=== PATIENT | female | born 1945 | race Caucasian/White ===

== ENCOUNTER → 2016-05-04 | Outpatient (CLI) | payer MEDICAID ==
[~2016-05-04] MED LIST: ABILIFY PO; AC325T PO; ACET325T38 PO; ACHD5005 PO; ACHYD1T PO; ADVAIR; ALBU0.63 IH; ALBU0.632 IH; ALBU0.8322 NEB; ALBU17AE3; ALBU2.5V4 IH; ALBUTEROL RESCUE; ARIP10TA17 PO; ARIP20TA9 PO; ARIP2TAB11 PO; ARIP2TAB3 PO; ARIP5TAB20 PO; ARPZ20T; ARPZ30T; ASP325T PO; ASP81CT PO; ASP81TEC PO; ASPI-875 PO; ASPI-999 PO; ATR20T PO; AZEL137S11 NS; AZEL137S7 NS; AZIT500T2 PO; BACL10TA PO; BACL20TA PO; BARIUM SUSPENSION 2.1% (VANILLA SILQ) 450 ML PO ONE; BETH25TA PO; BIPOLAR MED; BISA1KIT PO; BSC10SU PR; BUDE10.2 IH; BUDE10.22 IH; BUDE6HFA IH; BUDE6HFA INH; BUPR300T; CA C1TAB26 PO; CALC-6 PO; CALC1CAP19 PO; CARB1TAB4 PO; CARV12.53 PO; CARV25TA PO; CATHETER FLUSH 10 ML SYR IV PRN; CETI10CA PO; CETI10TA17; CETI10TA17 PO; CETI10TA20 PO; CHOL100011; CHOL100061 PO; CHOL200018 PO; CLAR500T8; CLAR500T8 PO; CLC500CT PO; CNC1KV IM; CTRZ10T PO; CYAN100053 IM; CYAN10007 PO; DCS100C PO; DICL100G18 TP; DILT120C PO; DILT120C57 PO; DILT120T11 PO; DNPZ5T PO; DONE5TAB30 PO; DOXY100C2 PO; DOXY100T61 PO; DULO30CA; DULO30CA PO; DULO30CA3 PO; DULO30CA48 PO; DULO60CA58 PO; DULO60CA6 PO; ECASA PO; ESCI20TA PO; ESCI20TA45 PO; ESCT10T; FAMO-119 PO; FAMO20TA5 PO; FENT1PAT8 TD; FENT1PAT9 TD; FERR-74 PO; FLC100T1 PO; FLUC100T6 PO; FLUO20CA25 PO; FLUO40CA; FLUT16SP22 NS; FLUT16SP22 NSEACH; FLUT1DIS27; FOLI0.8T PO; FRS325T; FRSM20T; FURO20TA4 PO; FURO40TA4 PO; GABA800T PO; GBPN300C; GBPN600T; GFN600TCR; GUAI600T43 PO; HALO1TAB PO; HCT25T; HYDR-2890 PO; HYDR-3714 PO; HYDR-3731 PO; HYDR-3816 PO; HYDR-3820 PO; HYDR-700 PO; HYDR118S10 PO; INSU100I29 SC; INSU100V5 SQ; IOHEXOL 350 MG/ML 100 ML (OMNIPAQUE 350) VIAL IV ONE; ISM60TCR PO; ISOS30TA3 PO; ISOS30TA74 PO; KCL20TCR; LACT1CAP45 PO; LACT1CAP62 PO; LEVA1.25 NEB; LEVO500T2 PO; LEVO750T39 PO; LEVO750T6 PO; LEVOMEFOLATE; LEXAPRO PO; LNZ600T PO; LOPE2CAP PO; LORA-404 PO; LORA-794 PO; LORA0.5T PO; LORA10TA7 PO; LORA1TAB PO; LRT10T PO; LUNESTA; LVB.63NB3; LVB125NB3 INH; MAG355OR55 PO; MAGN-47 PO; MAGN400O7 PO; MAGN400T6 PO; MELA3TAB PO; MEMA10TA PO; MEMA10TA22 PO; MENT71OI TP; METF1000 PO; METH4TAB PO; METHYLPREDNISOLONE; METO-272 PO; METO25TA2 PO; METO50TA7; METO50TA7 PO; MIRA25TA PO; MNTL10T PO; MOME13HF IH; MONT10TA24 PO; MTC10T; MTF500T PO; MTL5T PO; MTP25TSR; MTP25TSR PO; MTP50T PO; NASACORT; NASALCORT; NEBI2.5T5 PO; NF-ESOM40C; NF-ESOM40C PO; NITR0.6T5 SL; NS 100 ML (IVPB) BAG IV ONE; NYST15CR TP; OMEG1CAP51 PO; ONDA4TAB10 PO; ONDA4TAB8 PO; ONDN4T PO; PANT40TA PO; PANT40TA3 PO; PEG250PW PO; PNT40TEC PO; POLY119P5 PO; POLY17PO23 PO; POLY255P PO; POTA20TA15 PO; POTA8CAP9 PO; POTASSIUM; PRD10T PO; PRD1T PO; PRD20T PO; PRED2.5T PO; PRED5TAB PO; PREVACID; PROP15DR27 OU; QTP25T PO; QUET100T32 PO; QUET50TA21 PO; RISP0.5T2; RISP1TAB2 PO; RIVA20TA2 PO; ROFL500T PO; RSP.25T PO; RSP2T PO; SALM1CAP4; SANCTURA; SCR1T1 PO; SENN-1 PO; SENN1TAB76; SIMV20TA3 PO; SNN187T PO; SPRIVIA; SUCR1TAB PO; SUCR1TAB23 PO; TAZTIA XT PO; TEGA6TAB; TIOT18CA; TIOT18CA INH; TIOT18CA2 IH; TIOT18CA2 INH; TOLTA4; TRAM50TA2 PO; TRIA16.5; TRIA16.5 NSEACH; TRM50T PO; TRZ100T PO; VIT B12; ZLP10T; [UNRECOGNIZED DRUG - CODE]; [UNRECOGNIZED DRUG - OTHER]; [UNRECOGNIZED DRUG - OTHER]
--- OUTSIDE RECORDS SUMMARY | 2016-05-04 10:18 | XMS REPORT | Continuity of Care Document ---
Author Author [facility] Organization [facility] Address Unknown Phone Unavailable Care Team Providers Care Armature Connector Name Role Phone Concetta Brower PCP [phone] Source Comments Some departments are not documenting in the electronic medical record. If you do not see the information that you expected, contact Release of Information in the Health Information Management department at [phone] for further assistance in locating additional records.[facility] Active Allergies and Adverse Reactions Allergen Noted [...] Problem Noted Date Adrenal mass, left ([facility]) 12/16/2015 Nocturnal hypoxemia 07/13/2015 Overview: PSG Via [...] Assessment & Plan: Requested imaging from Via [facility]- I don't see any imaging since 2005, no mention of current abnormalities on old scans. Likely new, anticipating she needs CT of chest. Discussed with Dr. Brower's nurse coordinating local care. They were willing to help given complex social situation and distance. Obstructive lung disease (generalized) ([facility]) 07/13/2015 Overview: Dwayne normal On a significant [...] to see if we can optimize her. Social History Tobacco Use Types Packs/Day Years [...]
--- NOTE | 2016-05-04 11:56 | Diagnostic Imaging Report ---
PROCEDURE: CT chest and abdomen with contrast. TECHNIQUE: Multiple contiguous axial images were obtained through the chest and abdomen after the administration of intravenous contrast. INDICATION: Lung cancer. COMPARISON: Exam compared with study 01/07/2016. FINDINGS: CHEST: Left upper lobe apical irregular parenchymal opacity is less dense and smaller than on previous exam. Central dense component today is about 15 mm x 8 mm previously 22 x 11 mm. More caudally, an additional left upper lobe opacity measuring a long axis of 13 mm previously 15 mm. Some micronodularity of the interstitium involving the caudal aspect of the lingular segment of the left upper lobe as well as the dependent portions of both lower lobes and minimally involving the right middle lobe have developed. These are suspicious for pneumonia. Followup recommended. Some contrast media ingested mildly distends the thoracic esophagus above the level of the small hiatal hernia. There is no hilar or mediastinal lymphadenopathy. The axilla are unremarkable. No acute or suspicious osseous disease. The thoracic aorta is patent and nonaneurysmal. ABDOMEN: Nodule anterior to the upper pole of the left kidney believed to be of left adrenal origin measures 2.5 cm today previously 2.3 cm. The right adrenal is negative. The liver is unremarkable. There is no hydronephrosis. There is aortoiliac, mesenteric and renal vascular calcifications, nonaneurysmal and stable. The pancreas and spleen are normal. The kidneys are unobstructed. There is no abdominal, mesenteric or retroperitoneal adenopathy. There is is colonic constipation without small bowel dilatation. There is no ascites. No suspicious osseous disease. IMPRESSION: CHEST: Left apical lung mass decreased in size and density from prior, an additional left lower lobe parenchymal nodule was unchanged. There is new predominantly basilar nodular infiltrates suspect for pneumonia. No thoracic adenopathy. ABDOMEN: Left adrenal mass measures slightly larger than prior. Negative liver. Negative right adrenal. No lymphadenopathy. Nonobstructive constipation. Atherosclerotic disease, chronic. Dictated by: Dictated on workstation # [id number]
== END ==
LOC: RAD 10:15
PROVIDERS: ATTEND Internal Medicine Hematology & Oncology
DX: C34.82 Malignant neoplasm of overlapping sites of left bronchus and lung (principal); C79.72 Secondary malignant neoplasm of left adrenal gland
CPT/HCPCS: 71260; 74160

== ENCOUNTER 2016-05-09 13:51 | Outpatient (RCR) | payer MEDICAID ==
--- OUTSIDE RECORDS SUMMARY | 2016-02-23 13:05 | XMS REPORT | Continuity of Care Document ---
Author Author [facility] Organization [facility] Address Unknown Phone Unavailable Care Team Providers Care Community Service Organization Director Name Role Phone Concetta Brower PCP [phone] Source Comments Some departments are not documenting in the electronic medical record. If you do not see the information that you expected, contact Release of Information in the Health Information Management department at [phone] for further assistance in locating additional records.[facility] Active Allergies and Adverse Reactions Allergen Noted Date Severity Reactions Comments Amoxicillin 06/25/2015 Low UNKNOWN Benadryl 06/25/2015 Low UNKNOWN Cephalosporins 06/25/2015 Low UNKNOWN Ceclor and keflex Clindamycin 06/25/2015 Low UNKNOWN Codeine 06/25/2015 Low UNKNOWN Demerol 06/25/2015 Low UNKNOWN Formoterol 06/25/2015 Low UNKNOWN Levaquin 06/25/2015 Low UNKNOWN Lincomycin 06/25/2015 Low UNKNOWN Penicillin G 06/25/2015 Low UNKNOWN Pseudoephedrine Hcl 06/25/2015 Low UNKNOWN Sulfa (Sulfonamide 06/25/2015 Low UNKNOWN Antibiotics) Xanax 06/25/2015 Low UNKNOWN Zinc 06/25/2015 Low UNKNOWN Current Medications Prescription Sig. Disp. Refills Start End Date Status Date budesonide/formoterol Inhale 2 Puffs by mouth Active (SYMBICORT) 160/4.5 mcg twice daily. HFAA inhalation cetirizine (ZYRTEC) 10 mg Take 10 mg by mouth Active tablet daily. fluticasone (FLONASE) 50 Apply 2 Sprays to each Active mcg/actuation nasal spray nostril as directed daily. magnesium oxide (MAG-OX) Take 400 mg by mouth Active 400 mg tablet daily. pantoprazole DR Take 40 mg by mouth twice Active (PROTONIX) 40 mg tablet daily. DULoxetine DR (CYMBALTA) Take 30 mg by mouth twice Active 30 mg capsule daily. SENNOSIDES/DOCUSATE Take 1 Tab by mouth twice Active SODIUM (SENNA-S PO) daily. cyanocobalamin (VITAMIN Inject 1,000 mcg to Active B-12, RUBRAMIN) 1,000 area(s) as directed every mcg/mL injection 14 days. tiotropium (SPIRIVA) 18 Inhale 18 mcg by mouth Active mcg capsule for inhaler daily before dinner. memantine (NAMENDA) 10 mg Take 10 mg by mouth at Active tablet bedtime daily. simvastatin (ZOCOR) 20 mg Take 20 mg by mouth at Active tablet bedtime daily. donepezil (ARICEPT) 5 mg Take 5 mg by mouth at Active tablet bedtime daily. fluticasone (FLONASE Apply 2 Sprays to each Active ALLERGY RELIEF) 50 nostril as directed twice mcg/actuation nasal spray daily. acetaminophen (TYLENOL) Take 650 mg by mouth Active 325 mg tablet every 6 hours as needed for Pain. azelastine(+) (ASTELIN) Apply 1-2 Sprays to each Active 137 mcg (0.1 %) nasal nostril as directed three spray times daily as needed. ondansetron (ZOFRAN ( Take 4 mg by mouth every Active HYDROCHLORIDE)) 4 mg 6 hours as needed for tablet Nausea. hydrOXYzine (ATARAX) 25 Take 25 mg by mouth three Active mg tablet times daily as needed for Itching. Lactobacillus rhamnosus Take 1 Cap by mouth daily Active GG (LACTOBACILLUS with breakfast. RHAMNOSUS (GG)) 15 billion cell cpSP Calcium-Cholecalciferol Take 1 Tab by mouth twice Active (D3) 600 mg(1,500mg) -200 daily with meals. unit tab isosorbide mononitrate SR Take 30 mg by mouth every Active (IMDUR) 30 mg tablet morning. Hold if diastolic blood pressure is < 60 milk of magnesia (CONC) Take 10 mL by mouth daily Active 2,400 mg/10 mL oral as needed. suspension alum/mag hydroxide/simeth Take 30 mL by mouth every Active (MYLANTA, MAALOX PLUS) 4 hours as needed. 200/200/20 mg/5 mL susp oral suspension montelukast (SINGULAIR) Take 10 mg by mouth at Active 10 mg tablet bedtime daily. polyethylene glycol 3350 Take 17 g by mouth daily Active (GLYCOLAX; MIRALAX) 17 as needed. gram/dose powder escitalopram oxalate Take 30 mg by mouth Active (LEXAPRO) 10 mg tablet daily. ARIPiprazole (ABILIFY) 5 Take 1.25 mg by mouth Active mg tablet daily. carvedilol (COREG) 25 mg Take 25 mg by mouth twice Active tablet daily with meals. predniSONE (DELTASONE) Take 2.5 mg by mouth at Active 2.5 mg tablet bedtime daily. melatonin 3 mg tab Take 3 mg by mouth at Active bedtime as needed. HYDROcodone/acetaminophen Take 1-2 Tabs by mouth Active (NORCO) 7.5/325 mg tablet every 6 hours as needed for Pain albuterol 0.5% Inhale 2.5 mg solution as Active (PROVENTIL; VENTOLIN) 2.5 directed every 6 hours as mg/0.5 mL nebu nebulizer needed. solution Active Problems Problem Noted Date Adrenal mass, left ([facility]) 12/16/2015 Nocturnal hypoxemia 07/13/2015 Overview: PSG [facility] .2015 AHI 2.2/ Supine 0 Oxygenation gudelia 81%, 138 minutes below 88% Titrated to 1L oxygen DME Provided through assisted living L ast Assessment & Plan: Formatting of this note may be different from the original. Does not need CPAP, 1L at night. Possible obesity hypoventilation- seems less likely given normal serum bicarb. Results for DAY, YIMI Roberts ( ) as of 07/13/2015 11:05 Ref. Range 06/25/2015 17:29 CO2 Latest Range: 21-30 MMOL/L 28 Abnormal CXR (chest x-ray) 07/13/2015 Last Assessment & Plan: Requested imaging from [facility]- I don't see any imaging since 2005, no mention of current abnormalities on old scans. Likely new, anticipating she needs CT of chest. Discussed with Dr. Brower's nurse coordinating local care. They were willing to help given complex social situation and distance. Obstructive lung disease (generalized) ([facility]) 07/13/2015 Overview: Dwayne normal On a significant inhaler regimen that includes daliresp and singulair. I'm not sure if she doesn't have obstruction given her maximal inhaler therapy or if she has been misdiagnosed. Preop examination 07/12/2015 Overview: Dr. Morrell Spinal stenosis L ast Assessment & Plan: Pt very high risk, poor surgical candidate due to multiple health and complex social issues. -DM -reported COPD -nocturnal oxygen requirement -no activity tolerance, ECOG 4- lives in assisted living -reported DPOA that is not present with her today -limited knowledge of her dx's and treatment plan Will work up her abnormal CXR in conjunction with her PCP and see what this yields. Certainly her QOL issues are substantial at this point and surgery seems to be the only option. We will continue to see if we can optimize her. Most Recent Encounters Date Type Specialty Providers Description 01/05/2016 Documentation Oncology Rigoberto Ingram MD 12/16/2015 Documentation Oncology Rigoberto Ingram MD 12/16/2015 Orders Only Oncology Rigoberto Ingram MD Pheochromocytoma , left (Primary Dx) 12/14/2015 Office Visit Oncology Rigoberto Ingram MD Pheochromocytoma , left (Primary Dx); Adrenal mass, left (HCC) 11/26/2015 Telephone Oncology Rigoberto Ingram MD Navigation Assessment Social History Tobacco Use Types Packs/Day Years Used Date Former Smoker 4 40 Quit: 06/25/2005 Smokeless Tobacco: Never Used Alcohol Use Drinks/Week oz/Week Comments No 0 Standard 0.0 1991 recovering alcoholic drinks or equivalent Last Filed Vital Signs Vital Sign Reading Time Taken Blood Pressure 125/65 12/14/2015 2:10 PM CDT Pulse 77 12/14/2015 2:10 PM CDT Temperature 36.4 C (97.6 F) 12/14/2015 2:10 PM CDT Respiratory Rate 18 12/14/2015 2:10 PM CDT Height 1.626 m (5' 4") 12/14/2015 2:10 PM CDT Weight 113.399 kg (250 lb) 12/14/2015 2:10 PM CDT Body Mass Index 42.89 12/14/2015 2:10 PM CDT Oxygen Saturation 94% 12/14/2015 2:10 PM CDT Plan of Care Health Maintenance Due Date Last Done Comments Hepatitis C Screening 1945 Physical (Comprehensive) 1953 Exam Pertussis Vaccine 1957 Tetanus Vaccine 1963 Dilated Eye Exam 1964 Foot Exam 1964 Hba1c 1964 Microalbumin 1964 Breast Cancer Screening 1986 Colorectal Cancer 1996 Screening Shingles Vaccine 2006 Osteoporosis Screening 2011 Prevnar/Pneumovax (#1) 2011 Influenza Vaccine 12/30/2015 Results from Last 3 Months Not on file
[2016-02-23 13:45] LABS: BASOPHILS # (AUTO) 0.1 10^3/uL (0.0-0.1); BASOPHILS % (AUTO) 0 % (0-10); EOSINOPHILS # (AUTO) 0.2 10^3/uL (0.0-0.3); EOSINOPHILS % (AUTO) 1 % (0-10); LYMPHOCYTES # (AUTO) 3.1 X 10^3 (1.0-4.0); LYMPHOCYTES % (AUTO) 19 % (12-44); MEAN CORPUSCULAR HEMOGLOBIN 28 PG (25-34); MEAN CORPUSCULAR HGB CONC 31 G/DL (32-36); MEAN CORPUSCULAR VOLUME 91 FL (80-99); MEAN PLATELET VOLUME 10.2 FL (7.4-10.4); MONOCYTES % (AUTO) 6 % (0-12); NEUTROPHILS # (AUTO) 12.1 X 10^3 (1.8-7.8); NEUTROPHILS % (AUTO) 74 % (42-75); PLATELET COUNT 343 10^3/uL (130-400); RED BLOOD COUNT 3.26 10^6/uL (4.35-5.85); RED CELL DISTRIBUTION WIDTH 17.3 % (10.0-14.5); WHITE BLOOD COUNT 16.4 10^3/uL (4.3-11.0)
[2016-02-23 14:08] LABS: ALBUMIN 3.6 G/DL (3.2-4.5); BILIRUBIN,TOTAL 0.2 MG/DL (0.1-1.0); CALCIUM 9.2 MG/DL (8.5-10.1); CREATININE SERUM 1.06 MG/DL (0.60-1.30); POTASSIUM 4.1 MMOL/L (3.6-5.0); TOTAL PROTEIN 7.4 G/DL (6.4-8.2)
[2016-03-14 11:25] LABS: BASOPHILS % (AUTO) 0 % (0-10); EOSINOPHILS # (AUTO) 0.1 10^3/uL (0.0-0.3); EOSINOPHILS % (AUTO) 1 % (0-10); LYMPHOCYTES # (AUTO) 2.6 X 10^3 (1.0-4.0); LYMPHOCYTES % (AUTO) 14 % (12-44); MEAN CORPUSCULAR HEMOGLOBIN 28 PG (25-34); MEAN CORPUSCULAR HGB CONC 31 G/DL (32-36); MEAN CORPUSCULAR VOLUME 90 FL (80-99); MEAN PLATELET VOLUME 11.2 FL (7.4-10.4); MONOCYTES # (AUTO) 0.8 X 10^3 (0.0-1.0); MONOCYTES % (AUTO) 4 % (0-12); NEUTROPHILS # (AUTO) 15.3 X 10^3 (1.8-7.8); NEUTROPHILS % (AUTO) 81 % (42-75); PLATELET COUNT 354 10^3/uL (130-400); RED BLOOD COUNT 3.15 10^6/uL (4.35-5.85); RED CELL DISTRIBUTION WIDTH 17.6 % (10.0-14.5); WHITE BLOOD COUNT 18.9 10^3/uL (4.3-11.0)
[2016-03-14 11:44] LABS: ALBUMIN 3.5 G/DL (3.2-4.5); BILIRUBIN,TOTAL 0.3 MG/DL (0.1-1.0); CREATININE SERUM 1.22 MG/DL (0.60-1.30); MAGNESIUM 2.4 MG/DL (1.8-2.4)
[2016-03-14 11:47] LABS: POTASSIUM 5.8 MMOL/L (3.6-5.0)
[2016-03-14 12:07] LABS: THYROID STIMULATING HORMONE 1.63 UIU/ML (0.35-4.94)
[2016-04-04 11:09] LABS: BASOPHILS % (AUTO) 0 % (0-10); EOSINOPHILS # (AUTO) 0.2 10^3/uL (0.0-0.3); EOSINOPHILS % (AUTO) 1 % (0-10); LYMPHOCYTES # (AUTO) 2.6 X 10^3 (1.0-4.0); LYMPHOCYTES % (AUTO) 17 % (12-44); MEAN CORPUSCULAR HEMOGLOBIN 27 PG (25-34); MEAN CORPUSCULAR HGB CONC 30 G/DL (32-36); MEAN CORPUSCULAR VOLUME 89 FL (80-99); MEAN PLATELET VOLUME 10.4 FL (7.4-10.4); MONOCYTES # (AUTO) 0.9 X 10^3 (0.0-1.0); MONOCYTES % (AUTO) 6 % (0-12); NEUTROPHILS # (AUTO) 11.8 X 10^3 (1.8-7.8); NEUTROPHILS % (AUTO) 76 % (42-75); PLATELET COUNT 471 10^3/uL (130-400); RED BLOOD COUNT 3.52 10^6/uL (4.35-5.85); RED CELL DISTRIBUTION WIDTH 17.8 % (10.0-14.5); WHITE BLOOD COUNT 15.6 10^3/uL (4.3-11.0)
[2016-04-04 11:38] LABS: ALBUMIN 3.7 G/DL (3.2-4.5); BILIRUBIN,TOTAL 0.4 MG/DL (0.1-1.0); CALCIUM 9.4 MG/DL (8.5-10.1); CREATININE SERUM 1.12 MG/DL (0.60-1.30); MAGNESIUM 1.6 MG/DL (1.8-2.4); POTASSIUM 4.3 MMOL/L (3.6-5.0); TOTAL PROTEIN 7.9 G/DL (6.4-8.2)
[2016-04-20 09:16] LABS: BASOPHILS % (AUTO) 0 % (0-10); EOSINOPHILS # (AUTO) 0.1 10^3/uL (0.0-0.3); EOSINOPHILS % (AUTO) 1 % (0-10); LYMPHOCYTES # (AUTO) 1.9 X 10^3 (1.0-4.0); LYMPHOCYTES % (AUTO) 13 % (12-44); MEAN CORPUSCULAR HEMOGLOBIN 27 PG (25-34); MEAN CORPUSCULAR HGB CONC 29 G/DL (32-36); MEAN CORPUSCULAR VOLUME 90 FL (80-99); MEAN PLATELET VOLUME 11.2 FL (7.4-10.4); MONOCYTES # (AUTO) 0.7 X 10^3 (0.0-1.0); MONOCYTES % (AUTO) 5 % (0-12); NEUTROPHILS % (AUTO) 82 % (42-75); PLATELET COUNT 395 10^3/uL (130-400); RED BLOOD COUNT 3.62 10^6/uL (4.35-5.85); RED CELL DISTRIBUTION WIDTH 17.2 % (10.0-14.5); WHITE BLOOD COUNT 14.7 10^3/uL (4.3-11.0)
[2016-04-20 09:38] LABS: ALBUMIN 3.7 G/DL (3.2-4.5); BILIRUBIN,TOTAL 0.4 MG/DL (0.1-1.0); CALCIUM 9.1 MG/DL (8.5-10.1); CREATININE SERUM 1.3 MG/DL (0.60-1.30); TOTAL PROTEIN 7.7 G/DL (6.4-8.2)
[2016-05-02 10:20] LABS: BASOPHILS % (AUTO) 0 % (0-10); EOSINOPHILS # (AUTO) 0.1 10^3/uL (0.0-0.3); EOSINOPHILS % (AUTO) 1 % (0-10); LYMPHOCYTES # (AUTO) 2.4 X 10^3 (1.0-4.0); LYMPHOCYTES % (AUTO) 17 % (12-44); MEAN CORPUSCULAR HEMOGLOBIN 27 PG (25-34); MEAN CORPUSCULAR HGB CONC 31 G/DL (32-36); MEAN CORPUSCULAR VOLUME 89 FL (80-99); MEAN PLATELET VOLUME 9.6 FL (7.4-10.4); MONOCYTES # (AUTO) 0.8 X 10^3 (0.0-1.0); MONOCYTES % (AUTO) 6 % (0-12); NEUTROPHILS # (AUTO) 10.6 X 10^3 (1.8-7.8); NEUTROPHILS % (AUTO) 76 % (42-75); PLATELET COUNT 523 10^3/uL (130-400); RED CELL DISTRIBUTION WIDTH 17.7 % (10.0-14.5); WHITE BLOOD COUNT 13.9 10^3/uL (4.3-11.0)
[2016-05-02 11:05] LABS: ALBUMIN 3.6 G/DL (3.2-4.5); BILIRUBIN,TOTAL 0.3 MG/DL (0.1-1.0); CALCIUM 8.8 MG/DL (8.5-10.1); CREATININE SERUM 1.06 MG/DL (0.60-1.30); POTASSIUM 4.3 MMOL/L (3.6-5.0); TOTAL PROTEIN 7.5 G/DL (6.4-8.2)
[~2016-05-09] VITALS: Ht 175.3 cm; Wt 114.8 kg
[~2016-05-09 13:51] MED LIST changes: +ACETAMINOPHEN 500 MG TAB (TYLENOL) CANCER CTR PO PRN; -ARIP20TA9 PO; -BARIUM SUSPENSION 2.1% (VANILLA SILQ) 450 ML PO ONE; -CATHETER FLUSH 10 ML SYR IV PRN; -DULO60CA58 PO; -FENT1PAT8 TD; -FENT1PAT9 TD; -FLUC100T6 PO; -GUAI600T43 PO; -HYDR-3731 PO; -IOHEXOL 350 MG/ML 100 ML (OMNIPAQUE 350) VIAL IV ONE; -NS 100 ML (IVPB) BAG IV ONE; +NS IV 500 ML (CANCER CENTER) IV SCH; +PEMBROLIZUMAB 200 MG in NS (IVPB) CANCER CENTER 50 ML IV SCH
[2016-05-09 14:42] LABS: BASOPHILS # (AUTO) 0.1 10^3/uL (0.0-0.1); BASOPHILS % (AUTO) 1 % (0-10); EOSINOPHILS # (AUTO) 0.2 10^3/uL (0.0-0.3); EOSINOPHILS % (AUTO) 2 % (0-10); LYMPHOCYTES # (AUTO) 3.3 X 10^3 (1.0-4.0); LYMPHOCYTES % (AUTO) 28 % (12-44); MEAN CORPUSCULAR HEMOGLOBIN 27 PG (25-34); MEAN CORPUSCULAR HGB CONC 30 G/DL (32-36); MEAN CORPUSCULAR VOLUME 89 FL (80-99); MONOCYTES # (AUTO) 1.2 X 10^3 (0.0-1.0); MONOCYTES % (AUTO) 10 % (0-12); NEUTROPHILS # (AUTO) 7.2 X 10^3 (1.8-7.8); NEUTROPHILS % (AUTO) 61 % (42-75); PLATELET COUNT 461 10^3/uL (130-400); RED BLOOD COUNT 3.65 10^6/uL (4.35-5.85); RED CELL DISTRIBUTION WIDTH 17.8 % (10.0-14.5); WHITE BLOOD COUNT 11.8 10^3/uL (4.3-11.0)
[2016-05-09 15:24] LABS: ALBUMIN 3.7 G/DL (3.2-4.5); BILIRUBIN,TOTAL 0.2 MG/DL (0.1-1.0); CALCIUM 8.8 MG/DL (8.5-10.1); MAGNESIUM 1.7 MG/DL (1.8-2.4); POTASSIUM 4.6 MMOL/L (3.6-5.0); TOTAL PROTEIN 7.7 G/DL (6.4-8.2)
[2016-09-07] MEDS ORDERED: FENT1PAT9 TD (09:00)
[2016-09-07] MEDS ORDERED: LEVO500T2 PO (09:00)
[2016-09-07] MEDS ORDERED: FLUC100T6 PO (09:00)
== END 2016-05-23 | disposition home or self-care (01) ==
LOC: ONC 13:51
PROVIDERS: ATTEND Internal Medicine Hematology & Oncology
DX: Z51.11 Encounter for antineoplastic chemotherapy (principal); C34.12 Malignant neoplasm of upper lobe, left bronchus or lung; I25.10 Atherosclerotic heart disease of native coronary artery without angina pectoris; E11.9 Type 2 diabetes mellitus without complications; Z79.899 Other long term (current) drug therapy
CPT/HCPCS: 36415; 36591; 80053; 83735; 84439; 84443; 85025; 86316; 96413; 99213; 99214

== ENCOUNTER → 2016-07-04 | Outpatient (CLI) | payer MEDICAID ==
[~2016-07-04] MED LIST changes: -ACETAMINOPHEN 500 MG TAB (TYLENOL) CANCER CTR PO PRN; +ARIP20TA9 PO; +BARIUM SUSPENSION 2.1% (VANILLA SILQ) 450 ML PO ONE; +CATHETER FLUSH 10 ML SYR IV PRN; +DULO60CA58 PO; +FENT1PAT8 TD; +FENT1PAT9 TD; +FLUC100T6 PO; +GUAI600T43 PO; +HYDR-3731 PO; +IOHEXOL 350 MG/ML 100 ML (OMNIPAQUE 350) VIAL IV ONE; +NS 100 ML (IVPB) BAG IV ONE; -NS IV 500 ML (CANCER CENTER) IV SCH; -PEMBROLIZUMAB 200 MG in NS (IVPB) CANCER CENTER 50 ML IV SCH
--- OUTSIDE RECORDS SUMMARY | 2016-07-04 09:40 | XMS REPORT | Continuity of Care Document ---
Author Author [facility] Organization [facility] Address Unknown Phone Unavailable Care Team Providers Care Legend Maker Name Role Phone Concetta Brower PCP [phone] Source Comments Some departments are not documenting in the electronic medical record. If you do not see the information that you expected, contact Release of Information in the Health Information Management department at [phone] for further assistance in locating additional records.[facility] Active Allergies and Adverse Reactions [...] Problems Problem Noted Date Adrenal mass, left ([facility]) 12/16/2015 Nocturnal hypoxemia 07/13/2015 Overview: PSG [...] Assessment & Plan: Requested imaging from Via [facility]- I don't see any imaging since 2005, no mention of current abnormalities on old scans. Likely new, anticipating she needs CT of chest. Discussed with Dr. Brower's nurse coordinating local care. They were willing to help given complex social situation and distance. Obstructive lung disease (generalized) ([facility]) 07/13/2015 Overview: Dwayne normal On a [...]
--- NOTE | 2016-07-04 12:21 | Diagnostic Imaging Report ---
PROCEDURE: CT chest, abdomen, and pelvis with contrast. TECHNIQUE: Multiple contiguous axial images were obtained through the chest, abdomen, and pelvis after the administration of intravenous contrast. INDICATION: Lung cancer. FINDINGS: The previous CT chest and abdomen exam of 05/04/16 noted a poorly defined parenchymal opacity in the left upper lung. The central portion of this density measured 15 x 8 mm. On this exam, that area now measures 11 x 8 mm. There are also 2 other parenchymal opacities involving the left upper lung on the prior exam. The larger of these 2 measured approximately 6 x 15 mm. That finding is barely visible on this study. There is also an 8 x 7 mm nodule in the left upper lung. That finding cannot be identified on this exam either. The previous study also revealed fairly diffuse alveolar/interstitial infiltrates throughout the periphery of left midlung and left lung base and to a lesser degree the right lower lobe. On this exam, both lungs appear much better aerated. There is still a fair amount of residual alveolar/interstitial infiltrate on the left, however. There is still no sign of a pleural effusion. The heart size is within normal limits and stable when compared to the prior exam. Coronary artery calcifications are again noted. The aorta is not abnormally dilated. There is no definite defect within the pulmonary arteries to indicate a pulmonary embolus. There are a few slightly enlarged nodes in the aorticopulmonary window. These nodes have a conglomerate size of 9 x 31 mm. On the prior study, these nodes measured 12 x 36 mm. The thyroid gland is generally unremarkable. There is no obvious breast mass. The prior study did note a 2.3 x 2.5 cm low-density nodule associated with the left adrenal gland. That finding is again evident and no different. The liver, spleen, pancreas, right adrenal gland, kidneys, aorta and inferior vena cava show no sign of an acute abnormality. The small nonobstructive calculi within the right kidney seen previously are again evident and no different. The gallbladder is surgically absent. The stomach is not well distended and consequently difficult to assess. There is no solid pelvic mass or free fluid collection identified. The uterus and urinary bladder are grossly unremarkable. There are a number of diverticula involving the sigmoid colon but there is no sign of acute diverticulitis. The appendix was not particularly well visualized but there are no indirect signs of acute appendicitis. The bone windows do show that there is a 3.2 x 3.6 cm lytic lesion involving the right lateral aspect of the L5 vertebral body. This finding should be considered secondary to neoplastic disease until proven otherwise. There is no other bony lesion identified. There is no fracture visualized either. IMPRESSION: 1. The appearance of the chest has improved since the prior exam as the irregular parenchymal density in the left apex has decreased in size slightly. The other parenchymal abnormalities in the left upper lung seen on the prior study have essentially resolved. 2. The lung bases also appear better aerated than on the prior study but there is still a fair amount of residual atelectasis/infiltrate in the left lung base. 3. The left adrenal nodule noted on the prior study appears stable. The overall appearance of the soft tissues of the abdomen and pelvis is otherwise no different. 4. There is a 3.2 x 3.6 cm lytic lesion involving the right lateral aspect of the L5 vertebra. This finding should be considered neoplastic until proven otherwise.. Dictated by: Dictated on workstation # [id number]
== END ==
LOC: RAD 09:36
PROVIDERS: ATTEND Internal Medicine Hematology & Oncology
DX: C34.82 Malignant neoplasm of overlapping sites of left bronchus and lung (principal)
CPT/HCPCS: 71260; 74177

== ENCOUNTER → 2016-07-14 | Outpatient (CLI) | payer MEDICAID ==
[~2016-07-14] MED LIST changes: -BARIUM SUSPENSION 2.1% (VANILLA SILQ) 450 ML PO ONE; -CATHETER FLUSH 10 ML SYR IV PRN; -IOHEXOL 350 MG/ML 100 ML (OMNIPAQUE 350) VIAL IV ONE; -NS 100 ML (IVPB) BAG IV ONE
--- OUTSIDE RECORDS SUMMARY | 2016-07-14 10:28 | XMS REPORT | Continuity of Care Document ---
Author Author [facility] Organization [facility] Address Unknown Phone Unavailable Care Team Providers Care Calcine Furnace Loader Name Role Phone Concetta Brower PCP [phone] Source Comments Some departments are not documenting in the electronic medical record. If you do not see the information that you expected, contact Release of Information in the Health Information Management department at [phone] for further assistance in locating additional records.[facility] Active Allergies and Adverse Reactions Allergen [...] Problem Noted Date Adrenal mass, left ([facility]) 12/16/2015 Nocturnal hypoxemia 07/13/2015 Overview: PSG Via [...] Assessment & Plan: Requested imaging from [facility]- I don't see any imaging since 2005, no mention of current abnormalities on old scans. Likely new, anticipating she needs CT of chest. Discussed with Dr. Brower's nurse coordinating local care. They were willing to help given complex social situation and distance. Obstructive lung disease (generalized) ([facility]) 07/13/2015 Overview: Dwayne normal On a significant [...]
--- NOTE | 2016-07-14 15:35 | Diagnostic Imaging Report ---
INDICATION: Lung cancer. EXAMINATION: Whole-body bone scan was performed in the routine fashion with IV injection of 27.0 mCi technetium 99m MDP. FINDINGS: There is physiologic uptake of the tracer throughout the skeleton. There is degenerative type increased uptake over both knees. There are no findings suspicious for osseous metastatic disease. IMPRESSION: Degenerative type increased uptake over both knees. No scintigraphic evidence of osseous metastatic disease. Dictated by: Dictated on workstation # [id number]
== END ==
LOC: CARD 10:24
PROVIDERS: ATTEND Internal Medicine Hematology & Oncology
DX: C34.82 Malignant neoplasm of overlapping sites of left bronchus and lung (principal); R93.8 Abnormal findings on diagnostic imaging of other specified body structures
CPT/HCPCS: 78306

== ENCOUNTER 2016-07-19 05:36 | Outpatient (CLI) | payer MEDICAID ==
[~2016-07-19] VITALS: Ht 175.3 cm; Wt 112.3 kg
[~2016-07-19 05:36] MED LIST changes: -ARIP20TA9 PO; -DULO60CA58 PO; -FENT1PAT8 TD; -FENT1PAT9 TD; -FLUC100T6 PO; -GUAI600T43 PO; -HYDR-3731 PO
[2016-09-07] MEDS ORDERED: FLUC100T6 PO (09:00)
[2016-09-07] MEDS ORDERED: FENT1PAT9 TD (09:00)
[2016-09-07] MEDS ORDERED: LEVO500T2 PO (09:00)
== END 2016-07-19 16:03 ==
LOC: PREOP 05:36
DX: Z01.818 Encounter for other preprocedural examination (principal); R93.7 Abnormal findings on diagnostic imaging of other parts of musculoskeletal system; C34.82 Malignant neoplasm of overlapping sites of left bronchus and lung

== ENCOUNTER 2016-07-26 08:43 | Day surgery (SDC) | payer MEDICAID ==
[~2016-07-26] VITALS: Ht 175.3 cm; Wt 112.3 kg
[2016-07-26] MEDS ORDERED: CLINDAMYCIN 600 MG/50 ML IVPB 50 ML IV ONE ×2 (09:08→09:30)
[2016-07-26] MEDS: LACTATED RINGERS 1,000 ML IV PRN ×2 (09:15→10:30)
[2016-07-26 09:17] LABS: BASOPHILS % (AUTO) 0 % (0-10); EOSINOPHILS # (AUTO) 0.1 10^3/uL (0.0-0.3); EOSINOPHILS % (AUTO) 1 % (0-10); LYMPHOCYTES # (AUTO) 3.3 X 10^3 (1.0-4.0); LYMPHOCYTES % (AUTO) 22 % (12-44); MEAN CORPUSCULAR HEMOGLOBIN 27 PG (25-34); MEAN CORPUSCULAR HGB CONC 30 G/DL (32-36); MEAN CORPUSCULAR VOLUME 90 FL (80-99); MEAN PLATELET VOLUME 10.2 FL (7.4-10.4); MONOCYTES % (AUTO) 7 % (0-12); NEUTROPHILS # (AUTO) 10.7 X 10^3 (1.8-7.8); NEUTROPHILS % (AUTO) 70 % (42-75); PLATELET COUNT 433 10^3/uL (130-400); RED BLOOD COUNT 3.61 10^6/uL (4.35-5.85); RED CELL DISTRIBUTION WIDTH 18.3 % (10.0-14.5); WHITE BLOOD COUNT 15.2 10^3/uL (4.3-11.0)
[2016-07-26 09:29] LABS: PROTHROMBIN TIME PATIENT 12.8 SEC (12.2-14.7)
[2016-07-26 09:35] LABS: CALCIUM 9.5 MG/DL (8.5-10.1); CREATININE SERUM 0.97 MG/DL (0.60-1.30); POTASSIUM 4.5 MMOL/L (3.6-5.0)
[2016-07-26 09:36] LABS: EOSINOPHILS % (MANUAL) 1 %; HYPOCHROMASIA MODERATE; LYMPHOCYTES % (MANUAL) 21 %; NEUTROPHILS % (MANUAL) 69 %; REACTIVE LYMPHOCYTES 3 %
[2016-07-26 10:01] VITALS: BP 118/80
[2016-07-26] MEDS ORDERED: RT-ALBUTEROL SULF 2.5 MG/3 ML PRE-MIX VIAL ONE (10:09)
[2016-07-26] MEDS ORDERED: LIDOCAINE 1% INJ 20 ML (XYLOCAINE) VIAL ONE ×3 (10:12→11:44)
[2016-07-26] MEDS ORDERED: RT-ALBUTEROL SULF 2.5 MG/3 ML PRE-MIX VIAL IH STA (10:12)
[2016-07-26] MEDS ORDERED: proPOfol 200 MG/20 ML (DIPRIVAN) VIAL IV ONE (10:43)
[2016-07-26] MEDS ORDERED: MIDAZOLAM 2 MG/2 ML (VERSED) VIAL ONE (10:44)
[2016-07-26] MEDS ORDERED: KETAMINE HCL 100 MG/ML 5 ML VIAL ONE (11:35)
[2016-07-26] MEDS ORDERED: KETOROLAC 30 MG/ML VIAL ONE (12:19)
[2016-07-26] MEDS ORDERED: LACTATED RINGERS 1,000 ML IV ONE (12:46)
[2016-07-26 13:10] VITALS: BP 138/109
--- NOTE | 2016-07-26 13:26 | Pre-Procedure Progress Note ---
Standard Progress Note Progress Notes/Assess & Plan Progress/Assessment & Plan L5 mass with pathologic fracture, suspected metastasis. Patient seen prior to the procedure with no recent change in her history or exam Final Diagnosis Suspected L5 lung cancer metastasis. NANCY BIGGS MD Jul 26, 2016 13:26
--- NOTE | 2016-07-26 13:27 | Radiology-Procedure Note ---
Procedures/Interventions Procedure/Intervention Status post L5 vertebral body biopsy, radiofrequency ablation and the kyphoplasty. The patient tolerated the procedure well without immediate complications. The full dictation of the procedure would be under imaging. NANCY BIGGS MD Jul 26, 2016 13:27
[2016-07-26] MEDS ORDERED: CATHETER FLUSH 10 ML SYR IV ONE (13:30)
[2016-07-26 13:40] VITALS: BP 107/91
[2016-07-26] MEDS ORDERED: HYDROcodone/APAP 10 MG/325 MG (LORTAB) TAB PO ONE ×2 (13:56→14:00)
[2016-07-26 14:10] VITALS: BP 125/63
--- NOTE | 2016-07-26 18:07 | Diagnostic Imaging Report ---
EXAMINATION: 1. Fluoroscopic-guided L5 vertebral body biopsy. 2. L5 radiofrequency tumor ablation. 3. L5 kyphoplasty with fluoroscopy guidance. INDICATION: 71-year-old patient with metastatic lung cancer and enlarging lytic lesion in the right side aspect of L5 vertebral body with intractable pain despite oral pain medications. There is underlying pathologic fracture with no significant height loss at this point. There is only minimal erosion of the posterior wall of the vertebral body. The patient has significant COPD and is not a good candidate for general anesthesia. Anesthesia team decided to perform only relatively light degree of sedation. Biopsy was requested. Based on the patient's significant pain, at the same time radiofrequency ablation and cementoplasty is planned. CONSENT: Informed consent was obtained from the patient. The risks, benefits, potential complications and alternatives were reviewed and all questions answered to the patient's satisfaction. The patient's vital signs, cardiac rhythm, and pulse oximetry were observed throughout the procedure by qualified nursing personnel. ANESTHESIA: See anesthesia note. The procedure was performed with conscious sedation. FLUOROSCOPY TIME: 2 minutes and 24 seconds MEDICATIONS: Clindamycin 600 g IV preoperatively. 30 mg of Toradol IV intraoperatively. ESTIMATED BLOOD LOSS: Less than 20 mL. PROCEDURE: Maximal sterile barrier preparation and draping is performed to the back with the patient prone on the operative table, including sterile covering of the fluoroscopy machine. The L5 vertebral level is localized with anterior and lateral fluoroscopic visualization. Appropriate orientation and angle was marked and a transpedicular approach was deemed appropriate. A left paramedian skin incision is made and cannula with distal half size of 12-gauge is advanced under fluoroscopic guidance in both projections. This is advanced through the pedicle under fluoroscopic guidance and the tip of the cannula was placed along the posterior one-third of the vertebral body. This is followed by right paramedian skin incision and the steps repeated with transpedicular cannula placed similarly with the tip at the posterior third of the vertebral body. A biopsy was subsequently performed from the right transpedicular cannula. Due to minimal specimen and amount obtained, another biopsy was performed with an 18-gauge Temno biopsy needle. This was sent to pathology. Subsequently, a manual drill is utilized under fluoroscopic guidance to create a tract was performed to near the anterior border of the vertebral body. The patient was very uncomfortable and anesthesia was not able to give deeper anesthesia. Because of that and because of the lesion involving predominantly the right side of the vertebral body, it was felt that the only way to complete the ablation and cementoplasty is to utilize the right cannula with unilateral treatment. This should be adequate given that the mass does not have significant extension to the left side of the vertebral body. Then the OsteoCool radiofrequency ablation probe was introduced through the right transpedicular trocar and radiofrequency ablation was performed for 15 minutes. After the ablation, the radiofrequency probe was removed. Subsequently right-sided unilateral 15/2 balloon is advanced into the vertebral body and inflated with rated pressure, up to 140 mmHg with 2 cc of saline/contrast. Good balloon inflation in the anterior aspect of the vertebral body on the right side was observed. Subsequently cement injection after appropriate mixing and maturation is performed until filling into the posterior third of the vertebral body is achieved. Total of 3 cc of cement introduced. Cement introduction was performed under imaging guidance. No extravasation of cement into the spinal canal is seen. Both cannulas were removed with the stylet in place, after cement introduction. No immediate complications. IMPRESSION: Successful L5 vertebral body spine tumor ablation and kyphoplasty via fluoroscopy-guided performed via right transpedicular approach. Initially due to mild edema from the ablation, the pain could worsen compared to the baseline. Pain reduction benefits are expected to be seen in 3-5 days after this procedure. Dictated by: Dictated on workstation # [id number]
--- OUTSIDE RECORDS SUMMARY | 2016-08-20 04:10 | XMS REPORT | Continuity of Care Document ---
Author Author [facility] Organization [facility] Address Unknown Phone Unavailable Care Team Providers Care Rubble Placer Name Role Phone Concetta Brower PCP [phone] Source Comments Some departments are not documenting in the electronic medical record. 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 Likely new, anticipating she needs CT of chest. Discussed with Dr. Brower's nurse coordinating local care. They were willing to help given complex social situation and distance. Obstructive lung disease (generalized) ([facility]) 07/13/2015 Overview: Dwayne normal On [...] Screening 2011 Prevnar/Pneumovax (#1) 2011 Influenza Vaccine 12/29/2016 Results from Last 3 Months Not on file
--- OUTSIDE RECORDS SUMMARY | 2016-08-20 04:15 | XMS REPORT | Continuity of Care Document ---
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 CAUSE OF DI 03/12/2015 [facility] Y[facility]IR[facility]ST[facility] S Ot D50.9 IRON DEFICIENCY ANEMIA, UNSPECIFIED 03/12/2015 [facility] AYHIR ESCALERALINE S Ot E11.9 TYPE 2 DIABETES MELLITUS WITHOUT COMPLIC 03/12/2015 [facility] Y[facility]IR ESCALERALINE S Ot F32.9 MAJOR DEPRESSIVE DISORDER, SINGLE EPISOD 03/12/2015 [facility] YAHIRCHRISTIAN S Ot F41.9 ANXIETY DISORDER, UNSPECIFIED 03/12/2015 [facility] YAHIRCHRISTIAN S Ot I10 ESSENTIAL (PRIMARY) HYPERTENSION 03/12/2015 [facility] YAHIR ECSALERALINE S Ot I25.10 ATHSCL HEART DISEASE OF [place] CORONARY 03/12/2015 [facility] YAHIRCHRISTIAN S Ot I47.1 SUPRAVENTRICULAR TACHYCARDIA 03/12/2015 [facility] CHRISTIAN ESCALERA S Ot J15.1 PNEUMONIA DUE TO PSEUDOMONAS 03/12/2015 [facility] YAHIR ESCALERALINE S Ot J18.9 03/12/2015 [facility] CHRISTIAN ESCALERA S Ot J44.1 CHRONIC OBSTRUCTIVE PULMONARY DISEASE W 03/12/2015 [facility] YAHIR ESCALERALINE S Ot J44.9 03/12/2015 [facility] CHRISTIAN ESCALERA S Ot J80 ACUTE RESPIRATORY DISTRESS SYNDROME 03/12/2015 [facility] YAHIR ESCALERALINE S Ot K21.9 GASTRO-ESOPHAGEAL REFLUX DISEASE WITHOUT 03/12/2015 [facility] Y[facility]IR ESCALERALINE S Ot N39.0 URINARY TRACT INFECTION, SITE NOT SPECIF 03/12/2015 [facility] YAHIR ESCALERALINE S Ot R51 HEADACHE 03/12/2015 [facility] YAHIR ESCALERALINE S Ot Y95 NOSOCOMIAL CONDITION 03/12/2015 [facility] YAHIR ESCALERALINE S Ot Z87.891 PERSONAL HISTORY OF NICOTINE DEPENDENCE 03/12/2015 [facility] YAHIR ESCALERALINE S Ot D50.9 03/12/2015 [facility] YAHIR ESCALERALINE S Ot E11.9 03/12/2015 [facility] F32.9 03/12/2015 [facility] Ot F41.9 03/12/2015 [facility] YAHIR ESCALERALINE S Ot I47.1 03/12/2015 [facility] ESCALERALINE S Ot J18.9 03/12/2015 [facility] YAHIR ESCALERALINE S Ot J44.9 03/12/2015 [facility] YAHIR ESCALERALINE S Ot K21.9 03/12/2015 [facility] YAHIR ESCALERALINE S Ot Y95 03/12/2015 [facility] MONTY ESCALERACHRISTIAN S Ot E11.9 03/12/2015 [facility] Ot E78.5 03/12/2015 [facility] YAHIR ESCALERALINE S Ot Z51.81 03/12/2015 [facility] ESCALERALINE S Ot Z79.899 03/15/2015 [facility] MONTY ESCALERACHRISTIAN S Ot E11.9 03/15/2015 [facility] MONTY ESCALERACHRISTIAN S Ot E78.5 03/15/2015 [facility] MONTY ESCALERACHRISTIAN S Ot Z51.81 03/15/2015 OREND[facility] DO, CHRISTIAN S Ot Z79.899 04/12/2015 OREND[facility] DO, CHRISTIAN S Ot E11.9 04/12/2015 OREND[facility] DO, CHRISTIAN S Ot E78.5 04/12/2015 ORENDER DO, CHRISTIAN S Ot Z51.81 04/12/2015 OREND[facility] DO, CHRISTIAN S Ot Z79.899 04/13/2015 PERICO COLE, MAYKEL Cool Ot E78.2 04/13/2015 PER[facility] COLE, MAYKEL Cool Ot I10 04/13/2015 PER[facility] COLE, MAYKEL Cool Ot I25.10 04/13/2015 [facility] COLE, MAYKEL Cool Ot I50.22 04/13/2015 PER[facility] COLE, MAYKEL Cool Ot R07.89 04/27/2015 MARQUES VASQUEZ Ot J18.9 05/10/2015 ORENDER DO, CHRISTIAN S Ot E11.9 05/10/2015 ORENDER DO, CHRISTIAN S Ot E78.5 05/10/2015 OREND[facility] DO, CHRISTIAN S Ot Z51.81 05/10/2015 OREND[facility] DO, CHRISTIAN S Ot Z79.899 05/16/2015 OREND[facility] DO, CHRISTIAN S Ot E11.9 TYPE 2 DIABETES MELLITUS WITHOUT COMPLIC 05/16/2015 OREND[facility] DO, CHRISTIAN S Ot E78.5 HYPERLIPIDEMIA, UNSPECIFIED 05/16/2015 OREND[facility] DO, CHRISTIAN S Ot Z51.81 ENCOUNTER FOR THERAPEUTIC DRUG LEVEL MON 05/16/2015 ORENDER DO, CHRISTIAN S Ot Z79.899 OTHER SNF (CURRENT) DRUG THERAPY 06/08/2015 OREND[facility] DO, CHRISTIAN S Ot E11.9 06/08/2015 OREND[facility] DO, CHRISTIAN S Ot E78.5 06/08/2015 ORENDER DO, CHRISTIAN S Ot Z51.81 06/08/2015 OREND[facility] DO, CHRISTIAN S Ot Z79.899 06/08/2015 ORENDER DO, CHRISTIAN S Ot E11.9 06/08/2015 ORENDER DO, CHRISTIAN S Ot E78.5 06/08/2015 ORENDER DO, CHRISTIAN S Ot Z51.81 06/08/2015 ORENDER DO, CHRISTIAN S Ot Z79.899 06/15/2015 ORENDER DO, CHRISTIAN S Ot G47.36 SLEEP RELATED HYPOVENTILATION IN CONDITI 06/15/2015 ORENDER DO, CHRISTIAN S Ot R06.83 SNORING 07/06/2015 ORENDER DO, CHRISTIAN S Ot E11.9 07/06/2015 ORENDER DO, CHRISTIAN S Ot E78.5 07/06/2015 ORENDER DO, CHRISTIAN S Ot Z51.81 07/06/2015 ORENDER DO, CHRISTIAN S Ot Z79.899 07/06/2015 ORENDER DO, CHRISTIAN S Ot E11.9 07/06/2015 ORENDER DO, CHRISTIAN S Ot E78.5 07/06/2015 ORENDER DO, CHRISTIAN S Ot Z51.81 07/06/2015 ORENDER DO, CHRISTIAN S Ot Z79.899 07/21/2015 ORENDER DO, CHRISTIAN S Ot R05 07/21/2015 OREND[facility] DO, CHRISTIAN S Ot R91.8 07/29/2015 Ot 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 07/29/2015 Ot Z01.818 ENCOUNTER FOR OTHER PREPROCEDURAL EXAMIN 08/02/2015 ANA COLE, RJ Rangel Ot 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 08/02/2015 ANA COLE, RJ Rangel Ot K29.70 GASTRITIS, UNSPECIFIED, WITHOUT BLEEDING 08/03/2015 ANA COLE, RJ Rangel Ot K22.70 08/03/2015 ANA COLE, RJ Rangel Ot K29.70 08/04/2015 Ot K22.70 08/04/2015 Ot Z01.818 08/04/2015 ORENDER DO, CHRISTIAN S Ot R05 08/04/2015 ORENDER DO, CHRISTIAN S Ot R91.8 08/06/2015 ORENDER DO, CHRISTIAN S Ot E11.9 08/06/2015 ORENDER DO, CHRISTIAN S Ot E78.5 08/06/2015 ORENDER DO, CHRISTIAN S Ot Z51.81 08/06/2015 ORENDER DO, CHRISTIAN S Ot Z79.899 08/08/2015 ANA COLE, RJ Rangel Ot K22.70 08/08/2015 ANA COLE, RJ Rangel Ot K29.70 08/11/2015 ORENDER DO, CHRISTIAN S Ot R91.8 08/13/2015 ORENDER DO, CHRISTIAN S Ot R91.8 OTHER NONSPECIFIC ABNORMAL FINDING OF EDD 08/17/2015 ORENDER DO, CHRISTIAN S Ot R91.8 OTHER NONSPECIFIC ABNORMAL FINDING OF EDD 08/17/2015 ORENDER DO, CHRISTIAN S Ot R91.8 OTHER NONSPECIFIC ABNORMAL FINDING OF EDD 08/25/2015 ORENDER DO, CHRISTIAN S Ot E27.9 DISORDER OF ADRENAL GLAND, UNSPECIFIED 08/26/2015 ORENDER DO, CHRISTIAN S Ot R91.8 OTHER NONSPECIFIC ABNORMAL FINDING OF EDD 08/26/2015 ORENDER DO, CHRISTIAN S Ot E27.9 DISORDER OF ADRENAL [place], UNSPECIFIED 09/06/2015 ORENDER DO, CHRISTIAN S Ot E11.9 TYPE 2 DIABETES MELLITUS WITHOUT COMPLIC 09/06/2015 ORENDER DO, CHRISTIAN S Ot E78.5 HYPERLIPIDEMIA, UNSPECIFIED 09/06/2015 ORENDER DO, CHRISTIAN S Ot Z51.81 ENCOUNTER FOR THERAPEUTIC DRUG LEVEL MON 09/06/2015 ORENDER DO, CHRISTIAN S Ot Z79.899 OTHER SPECIAL PROJECTS MANAGER (CURRENT) DRUG THERAPY 09/08/2015 ORENDER DO, CHRISTIAN S Ot E27.9 DISORDER OF [place]RENAL [place], UNSPECIFIED 09/10/2015 ORENDER DO, CHRISTIAN S Ot E27.9 DISORDER OF [place], UNSPECIFIED 09/12/2015 ORENDER DO, CHRISTIAN S Ot E11.9 TYPE 2 DIABETES MELLITUS WITHOUT COMPLIC 09/12/2015 ORENDER DO, CHRISTIAN S Ot E78.5 HYPERLIPIDEMIA, UNSPECIFIED 09/12/2015 ORENDER DO, CHRISTIAN S Ot Z51.81 ENCOUNTER FOR THERAPEUTIC DRUG LEVEL MON 09/12/2015 ORENDER DO, CHRISTIAN S Ot Z79.899 OTHER SNF (CURRENT) DRUG THERAPY 10/01/2015 ANA COLE, RJ Rangel Ot D12.3 BENIGN NEOPLASM OF TRANSVERSE COLON 10/01/2015 ANA COLE, RJ Rangel Ot K57.30 DVRTCLOS OF LG INT W/O PERFORATION OR AB 10/01/2015 RJ PEREZ MD Ot K63.5 POLYP OF COLON 10/08/2015 CHRISTIAN SALES DO S Ot R05 COUGH 10/15/2015 Ot 401.9 HYPERTENSION NOS 10/15/2015 Ot 414.01 CORONARY ATHEROSCLEROSIS OF [place] CORON 10/15/2015 Ot 427.31 ATRIAL FIBRILLATION 10/15/2015 Ot 428.0 CONGESTIVE HEART FAILURE NOS 10/15/2015 Ot 530.81 ESOPHAGEAL REFLUX 10/15/2015 Ot 785.1 PALPITATIONS 10/15/2015 Ot 786.50 CHEST PAIN NOS 10/15/2015 HOL[facility] DOMONTYCHRISTIAN S Ot E11.9 TYPE 2 DIABETES MELLITUS WITHOUT COMPLIC 10/15/2015 [facility] TARIQ DOQUELINE S Ot E78.5 HYPERLIPIDEMIA, UNSPECIFIED 10/15/2015 HOLLIENDER MONTY ESCALERACHRISTIAN S Ot Z51.81 ENCOUNTER FOR THERAPEUTIC DRUG LEVEL MON 10/15/2015 HOLL[facility]END[facility] TARIQ DOQUELINE S Ot Z79.899 OTHER SNF (CURRENT) DRUG THERAPY 10/15/2015 HOLLIENDER MONTY ESCALERACHRISTIAN S Ot D50.9 IRON DEFICIENCY ANEMIA, UNSPECIFIED 10/15/2015 HOLLIENDER DOMONTYCHRISTIAN S Ot E11.9 TYPE 2 DIABETES MELLITUS WITHOUT COMPLIC 10/15/2015 HOLLIENDER DO CHRISTIAN S Ot F41.9 ANXIETY DISORDER, UNSPECIFIED 10/15/2015 HOLLIEND[facility] TARIQ DOQUELINE S Ot I47.1 SUPRAVENTRICULAR TACHYCARDIA 10/15/2015 [facility] TARIQ DOQUELINE S Ot J18.9 PNEUMONIA, UNSPECIFIED ORGANISM 10/15/2015 [facility] TARIQ DOQUELINE S Ot J44.1 CHRONIC OBSTRUCTIVE PULMONARY DISEASE W 10/15/2015 HOLLIENDER MONTY ESCALERACHIRSTIAN S Ot K21.9 GASTRO-ESOPHAGEAL REFLUX DISEASE WITHOUT 10/15/2015 HOLLIENDER MONTY ESCALERACHRISTIAN S Ot R09.02 HYPOXEMIA 10/15/2015 HOLLIENDER DO CHRISTIAN S Ot R60.9 EDEMA, UNSPECIFIED 10/15/2015 HOLLIENDCHANDNI ESCALERA CHRISTIAN S Ot R91.8 OTHER NONSPECIFIC ABNORMAL FINDING OF EDD 10/15/2015 [facility] TARIQ DOQUELINE S Ot Z87.891 PERSONAL HISTORY OF NICOTINE DEPENDENCE 10/19/2015 ORENDER DO, CHRISTIAN S Ot D50.9 IRON DEFICIENCY ANEMIA, UNSPECIFIED 10/19/2015 ORENDER DO, CHRISTIAN S Ot E11.9 TYPE 2 DIABETES MELLITUS WITHOUT COMPLIC 10/19/2015 ORENDER DO, CHRISTIAN S Ot F41.9 ANXIETY DISORDER, UNSPECIFIED 10/19/2015 ORENDER DO, CHRISTIAN S Ot I47.1 SUPRAVENTRICULAR TACHYCARDIA 10/19/2015 ORENDER DO, CHRISTIAN S Ot J18.9 PNEUMONIA, UNSPECIFIED ORGANISM 10/19/2015 ORENDER DO, CHRISTIAN S Ot J44.1 CHRONIC OBSTRUCTIVE PULMONARY DISEASE W 10/19/2015 ORENDER DO, CHRISTIAN S Ot K21.9 GASTRO-ESOPHAGEAL REFLUX DISEASE WITHOUT 10/19/2015 ORENDER DO, CHRISTIAN S Ot R09.02 HYPOXEMIA 10/19/2015 ORENDER DO, CHRISTIAN S Ot R60.9 EDEMA, UNSPECIFIED 10/19/2015 ORENDER DO, CHRISTIAN S Ot R91.8 OTHER NONSPECIFIC ABNORMAL FINDING OF EDD 10/19/2015 HOLLIENDER DO, CHRISTIAN S Ot Z87.891 PERSONAL HISTORY OF NICOTINE DEPENDENCE 10/19/2015 ORENDER DO, CHRISTIAN S Ot D50.9 IRON DEFICIENCY ANEMIA, UNSPECIFIED 10/19/2015 ORENDER DO, CHRISTIAN S Ot E11.9 TYPE 2 DIABETES MELLITUS WITHOUT COMPLIC 10/19/2015 ORENDER DO, CHRISTIAN S Ot F41.9 ANXIETY DISORDER, UNSPECIFIED 10/19/2015 ORENDER DO, CHRISTIAN S Ot I47.1 SUPRAVENTRICULAR TACHYCARDIA 10/19/2015 ORENDER DO, CHRISTIAN S Ot J18.9 PNEUMONIA, UNSPECIFIED ORGANISM 10/19/2015 ORENDER DO, CHRISTIAN S Ot J44.1 CHRONIC OBSTRUCTIVE PULMONARY DISEASE W 10/19/2015 ORENDER DO, CHRISTIAN S Ot K21.9 GASTRO-ESOPHAGEAL REFLUX DISEASE WITHOUT 10/19/2015 ORENDER DO, CHRISTIAN S Ot R09.02 HYPOXEMIA 10/19/2015 ORENDER DO, CHRISTIAN S Ot R60.9 EDEMA, UNSPECIFIED 10/19/2015 ORENDER DO, CHRISTIAN S Ot R91.8 OTHER NONSPECIFIC ABNORMAL FINDING OF EDD 10/19/2015 CHRISTIAN SALES DO S Ot Z87.891 PERSONAL HISTORY OF NICOTINE DEPENDENCE 10/20/2015 ANA COLE, RJ Rangel Ot D12.3 BENIGN NEOPLASM OF TRANSVERSE COLON 10/20/2015 ANA COLE, RJ Rangel Ot K57.30 DVRTCLOS OF LG INT W/O PERFORATION OR AB 10/21/2015 CHRISTIAN SALES DO S Ot B95.2 ENTEROCOCCUS THE CAUSE OF DISEASES CL 10/21/2015 CHRISTIAN SALES DO S Ot D35.02 BENIGN NEOPLASM OF LEFT ADRENAL GLAND 10/21/2015 YAHIR SALES DOLINE S Ot D50.9 IRON DEFICIENCY ANEMIA, UNSPECIFIED 10/21/2015 YAHIR SALES DOLINE S Ot E11.22 TYPE 2 DIABETES MELLITUS W DIABETIC OSTOMY CARE NURSE 10/21/2015 YAHIR SALES DOLINE S Ot E11.9 TYPE 2 DIABETES MELLITUS WITHOUT COMPLIC 10/21/2015 CHRISTIAN SALES DO S Ot E66.9 OBESITY, UNSPECIFIED 10/21/2015 YAHIR SALES DOLINE S Ot F41.9 ANXIETY DISORDER, UNSPECIFIED 10/21/2015 YAHIR SALES DOLINE S Ot I12.9 HYPERTENSIVE CHRONIC KIDNEY DISEASE W ST 10/21/2015 YAHIR SALES DOLINE S Ot I25.10 ATHSCL HEART DISEASE OF [place] CORONARY 10/21/2015 YAHIR SALES DOLINE S Ot I47.1 SUPRAVENTRICULAR TACHYCARDIA 10/21/2015 CHRISTIAN SALES DO S Ot J18.9 PNEUMONIA, UNSPECIFIED ORGANISM 10/21/2015 YAHIR SALES DOLINE S Ot J20.9 ACUTE BRONCHITIS, UNSPECIFIED 10/21/2015 YAHIR SALES DOLINE S Ot J30.9 ALLERGIC RHINITIS, UNSPECIFIED 10/21/2015 CHRISTIAN SALES DO S Ot J44.1 CHRONIC OBSTRUCTIVE PULMONARY DISEASE W 10/21/2015 CHRISTIAN SALES DO S Ot K21.9 GASTRO-ESOPHAGEAL REFLUX DISEASE WITHOUT 10/21/2015 YAHIR SALES DOLINE S Ot K59.00 CONSTIPATION, UNSPECIFIED 10/21/2015 YAHIR SALES DOLINE S Ot N18.9 CHRONIC KIDNEY DISEASE, UNSPECIFIED 10/21/2015 MÓNICA ESCALERA CHRISTIAN Heber Ot N39.0 URINARY TRACT INFECTION, SITE NOT SPECIF 10/21/2015 CHRISTIAN SALES DO Ot R09.02 HYPOXEMIA 10/21/2015 CHRISTIAN SALES DO S Ot R19.7 DIARRHEA, UNSPECIFIED 10/21/2015 CHRISTIAN SALES DO Ot R60.9 EDEMA, UNSPECIFIED 10/21/2015 CHRISTIAN SALES DO S Ot R91.8 OTHER NONSPECIFIC ABNORMAL FINDING OF EDD 10/21/2015 CHRISTIAN SALES DO Ot Z68.41 BODY MASS INDEX (BMI) 40.0-44.9, ADULT 10/21/2015 CHRISTIAN SALES DO Ot Z87.891 PERSONAL HISTORY OF NICOTINE DEPENDENCE 10/29/2015 Ot 250.00 10/29/2015 Ot 305.1 10/29/2015 Ot 401.9 10/29/2015 Ot 496 10/29/2015 Ot 719.41 10/29/2015 Ot V58.66 10/29/2015 Ot V58.69 11/19/2015 CHRISTIAN SALES DO S Ot D35.00 BENIGN NEOPLASM OF UNSPECIFIED ADRENAL G 11/19/2015 CHRISTIAN SALES DO S Ot D64.9 ANEMIA, UNSPECIFIED 11/19/2015 CHRISTIAN SALES DO S Ot E11.9 TYPE 2 DIABETES MELLITUS WITHOUT COMPLIC 11/19/2015 CHRISTIAN SALES DO S Ot E66.2 MORBID (SEVERE) OBESITY WITH ALVEOLAR HY 11/19/2015 CHRISTIAN SALES DO S Ot E87.5 HYPERKALEMIA 11/19/2015 CHRISTIAN SALES DO S Ot F31.9 BIPOLAR DISORDER, UNSPECIFIED 11/19/2015 CHRISTIAN SALES DO S Ot F39 UNSPECIFIED MOOD [AFFECTIVE] DISORDER 11/19/2015 CHRISTIAN SALES DO S Ot F41.9 ANXIETY DISORDER, UNSPECIFIED 11/19/2015 CHRISTIAN SALES DO S Ot G93.41 METABOLIC ENCEPHALOPATHY 11/19/2015 CHRISTIAN SALES DO S Ot I10 ESSENTIAL (PRIMARY) HYPERTENSION 11/19/2015 CHRISTIAN SALES DO S Ot I25.10 ATHSCL HEART DISEASE OF [place] CORONARY 11/19/2015 CHRISTIAN SALES DO Ot I50.33 ACUTE ON CHRONIC DIASTOLIC ( CONGESTIVE) 11/19/2015 CHRISTIAN SALES DO Ot I77.9 DISORDER OF ARTERIES AND ARTERIOLES, UNS 11/19/2015 CHRISTIAN SALES DO Ot J44.9 CHRONIC OBSTRUCTIVE PULMONARY DISEASE , U 11/19/2015 CHRISTIAN SALES DO Ot K21.9 GASTRO-ESOPHAGEAL REFLUX DISEASE WITHOUT 11/19/2015 CHRISTIAN SALES DO Ot K44.9 DIAPHRAGMATIC HERNIA WITHOUT OBSTRUCTION 11/19/2015 CHRISTIAN SALES DO Ot M79.7 FIBROMYALGIA 11/19/2015 CHRISTIAN SALES DO Ot Z68.38 BODY MASS INDEX (BMI) 38.0-38.9, ADULT 11/19/2015 CHRISTIAN SALES DO Ot Z87.891 PERSONAL HISTORY OF NICOTINE DEPENDENCE 11/19/2015 CHRISTIAN SALES DO Ot Z99.81 DEPENDENCE ON SUPPLEMENTAL OXYGEN 12/21/2015 CHRISTIAN SALES DO Ot J44.9 CHRONIC OBSTRUCTIVE PULMONARY DISEASE , U 12/21/2015 CHRISTIAN SALES DO Ot J44.9 CHRONIC OBSTRUCTIVE PULMONARY DISEASE , U 12/24/2015 Ot 250.00 DIAB BAILEE WO COMPL, TYPE II OR UNSPEC TY 12/24/2015 Ot 272.4 HYPERLIPIDEMIA NEC/NOS 12/24/2015 Ot 401.9 HYPERTENSION NOS 12/24/2015 Ot 780.79 OTH MALAISE FATIGUE 12/24/2015 Ot 786.09 RESPIRATORY ABNORM NEC 12/24/2015 Ot 786.2 COUGH 12/24/2015 Ot V45.4 ARTHRODESIS STATUS 12/24/2015 Ot 397.0 TRICUSPID VALVE DISEASE 12/24/2015 Ot 401.9 HYPERTENSION NOS 12/24/2015 Ot 416.8 CHR PULMON HEART DIS NEC 12/24/2015 Ot 424.0 MITRAL VALVE DISORDER 12/24/2015 Ot 428.0 CONGESTIVE HEART FAILURE NOS 12/24/2015 Ot 496 CHR AIRWAY OBSTRUCT NEC 12/24/2015 Ot 786.2 COUGH 12/24/2015 Ot 786.05 SHORTNESS OF BREATH 12/24/2015 Ot 793.19 OTHER NONSPECIFIC ABNORMAL FINDING OF EDD 12/24/2015 Ot 786.05 SHORTNESS OF BREATH 12/24/2015 Ot V76.12 OTH SCREEN MAMMO-MALIGN NEOPLASM OF [place] 12/24/2015 Ot 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 12/24/2015 Ot V64.3 NO PROC FOR REASONS NEC 12/24/2015 Ot V72.84 EXAM PRE-OPERATIVE NOS 12/24/2015 Ot V72.84 EXAM PRE-OPERATIVE NOS 12/24/2015 PAVEL YOUNG MD Ot 592.0 CALCULUS OF KIDNEY 12/24/2015 PAVEL YOUNG MD Ot 599.0 URIN TRACT INFECTION NOS 12/24/2015 QUENTIN NGUYỄN Ot 272.4 HYPERLIPIDEMIA NEC/NOS 12/24/2015 QUENTIN NGUYỄN Ot 414.01 CORONARY ATHEROSCLEROSIS OF [place] CORON 12/24/2015 QUENTIN NGUYỄN Ot 427.31 ATRIAL FIBRILLATION 12/24/2015 QUENTIN NGUYỄN Ot 428.0 CONGESTIVE HEART FAILURE NOS 12/24/2015 QUENTIN NGUYỄN Ot 530.81 ESOPHAGEAL REFLUX 12/24/2015 QUENTIN NGUYỄN Ot 785.1 PALPITATIONS 12/24/2015 QUENTIN NGUYỄN Ot 786.50 CHEST PAIN NOS 12/24/2015 Ot 401.9 HYPERTENSION NOS 12/24/2015 Ot 414.01 CORONARY ATHEROSCLEROSIS OF [place] CORON 12/24/2015 Ot 427.31 ATRIAL FIBRILLATION 12/24/2015 Ot 428.0 CONGESTIVE HEART FAILURE NOS 12/24/2015 Ot 530.81 ESOPHAGEAL REFLUX 12/24/2015 Ot 785.1 PALPITATIONS 12/24/2015 Ot 786.50 CHEST PAIN NOS 12/24/2015 TONI COLE, KARINE Cool Ot 724.2 LUMBAGO 12/24/2015 TONI COLE, KARINE Cool Ot 729.5 PAIN IN LIMB 12/24/2015 Ot V72.84 EXAM PRE-OPERATIVE NOS 12/24/2015 MAYKEL RIVER MD Ot 272.4 HYPERLIPIDEMIA NEC/NOS 12/24/2015 MAYKEL RIVER MD Ot 401.9 HYPERTENSION NOS 12/24/2015 MAYKEL RIVER MD Ot 414.9 CHR ISCHEMIC HRT DIS NOS 12/24/2015 MAYKEL RIVER MD Ot 428.0 CONGESTIVE HEART FAILURE NOS 12/24/2015 MAYKEL RIVER MD Ot 786.50 CHEST PAIN NOS 12/24/2015 CHRISTINA MARQUES Juan Carlos MELTON Ot J18.9 PNEUMONIA, UNSPECIFIED ORGANISM 12/24/2015 QUENTIN NGUYỄN Ot 272.4 HYPERLIPIDEMIA NEC/NOS 12/24/2015 QUENTIN NGUYỄN K Ot 401.9 HYPERTENSION NOS 12/24/2015 FELA MOORE, QUENTIN K Ot 414.00 CORON ATHEROSCLER NOS TYPE VESSEL, NATIV 12/24/2015 QUENTIN NGUYỄN K Ot 428.0 CONGESTIVE HEART FAILURE NOS 12/24/2015 QUENTIN NGUYỄN K Ot 272.4 HYPERLIPIDEMIA NEC/NOS 12/24/2015 QUENTIN NGUYỄN Ot 401.9 HYPERTENSION NOS 12/24/2015 QUENTIN NGUYỄN K Ot 414.00 CORON ATHEROSCLER NOS TYPE VESSEL, NATIV 12/24/2015 QUENTIN NGUYỄN Ot 428.0 CONGESTIVE HEART FAILURE NOS 12/24/2015 MAYKEL RIVER MD Ot E78.2 MIXED HYPERLIPIDEMIA 12/24/2015 MAYKEL RIVER MD Ot I10 ESSENTIAL (PRIMARY) HYPERTENSION 12/24/2015 MAYKLE RIVER MD Ot I25.10 ATHSCL HEART DISEASE OF [place] CORONARY 12/24/2015 MAYKEL RIVER MD Ot I50.22 CHRONIC SYSTOLIC (CONGESTIVE) HEART FAIL 12/24/2015 MAYKEL RIVER MD Ot R07.89 OTHER CHEST PAIN 12/24/2015 HOLLIENDER , CHRISTIAN S Ot R05 COUGH 12/24/2015 HOLLIENDER DO, CHRISTIAN S Ot R91.8 OTHER NONSPECIFIC ABNORMAL FINDING OF EDD 12/24/2015 ORENDER DO, CHRISTIAN S Ot R91.8 OTHER NONSPECIFIC ABNORMAL FINDING OF EDD 12/24/2015 HOLLIENDER DO, CHRISTIAN S Ot E11.9 TYPE 2 DIABETES MELLITUS WITHOUT COMPLIC 12/24/2015 HOLLIENDER DO, CHRISTIAN S Ot E78.5 HYPERLIPIDEMIA, UNSPECIFIED 12/24/2015 ORENDER DO, CHRISTIAN S Ot Z51.81 ENCOUNTER FOR THERAPEUTIC DRUG LEVEL MON 12/24/2015 HOLLIENDER DO CHRISTIAN S Ot Z79.899 OTHER SNF (CURRENT) DRUG THERAPY 12/24/2015 ANA COLE, RJ Rangel Ot Z01.818 ENCOUNTER FOR OTHER PREPROCEDURAL EXAMIN 12/24/2015 CHRISTIAN SALES DO Ot R05 COUGH 12/24/2015 CHRISTIAN SALES DO Ot J44.9 CHRONIC OBSTRUCTIVE PULMONARY DISEASE , U 12/30/2015 Ot 250.00 12/30/2015 Ot 305.1 12/30/2015 Ot 401.9 12/30/2015 Ot 496 12/30/2015 Ot 719.41 12/30/2015 Ot V58.66 12/30/2015 Ot V58.69 01/07/2016 Ot 250.00 DIAB BAILEE WO COMPL, TYPE II OR UNSPEC TY 01/07/2016 Ot 272.4 HYPERLIPIDEMIA NEC/NOS 01/07/2016 Ot 401.9 HYPERTENSION NOS 01/07/2016 Ot 780.79 OTH MALAISE FATIGUE 01/07/2016 Ot 786.09 RESPIRATORY ABNORM NEC 01/07/2016 Ot 786.2 COUGH 01/07/2016 Ot V45.4 ARTHRODESIS STATUS 01/07/2016 Ot 397.0 TRICUSPID VALVE DISEASE 01/07/2016 Ot 401.9 HYPERTENSION NOS 01/07/2016 Ot 416.8 CHR PULMON HEART DIS NEC 01/07/2016 Ot 424.0 MITRAL VALVE DISORDER 01/07/2016 Ot 428.0 CONGESTIVE HEART FAILURE NOS 01/07/2016 Ot 496 CHR AIRWAY OBSTRUCT NEC 01/07/2016 Ot 786.2 COUGH 01/07/2016 Ot 786.05 SHORTNESS OF BREATH 01/07/2016 Ot 793.19 OTHER NONSPECIFIC ABNORMAL FINDING OF EDD 01/07/2016 Ot 786.05 SHORTNESS OF BREATH 01/07/2016 Ot V76.12 OTH SCREEN MAMMO-MALIGN NEOPLASM OF [place] 01/07/2016 Ot 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 01/07/2016 Ot V64.3 NO PROC FOR REASONS NEC 01/07/2016 Ot V72.84 EXAM PRE-OPERATIVE NOS 01/07/2016 Ot V72.84 EXAM PRE-OPERATIVE NOS 01/07/2016 HECTOR COLE, PAVEL Roberts Ot 592.0 CALCULUS OF KIDNEY 01/07/2016 PAVEL YOUNG MD Ot 599.0 URIN TRACT INFECTION NOS 01/07/2016 QUENTIN NGUYỄN Ot 272.4 HYPERLIPIDEMIA NEC/NOS 01/07/2016 QUENTIN NGUYỄN Ot 414.01 CORONARY ATHEROSCLEROSIS OF [place] CORON 01/07/2016 QUENTIN NGUYỄN Ot 427.31 ATRIAL FIBRILLATION 01/07/2016 QUENTIN NGUYỄN Ot 428.0 CONGESTIVE HEART FAILURE NOS 01/07/2016 QUENTIN NGUYỄN Ot 530.81 ESOPHAGEAL REFLUX 01/07/2016 QUENTIN NGUYỄN Ot 785.1 PALPITATIONS 01/07/2016 QUENTIN NGUYỄN Ot 786.50 CHEST PAIN NOS 01/07/2016 Ot 401.9 HYPERTENSION NOS 01/07/2016 Ot 414.01 CORONARY ATHEROSCLEROSIS OF [place] CORON 01/07/2016 Ot 427.31 ATRIAL FIBRILLATION 01/07/2016 Ot 428.0 CONGESTIVE HEART FAILURE NOS 01/07/2016 Ot 530.81 ESOPHAGEAL REFLUX 01/07/2016 Ot 785.1 PALPITATIONS 01/07/2016 Ot 786.50 CHEST PAIN NOS 01/07/2016 TONI COLE, KARINE Cool Ot 724.2 LUMBAGO 01/07/2016 TONI COLE, KARINE Cool Ot 729.5 PAIN IN LIMB 01/07/2016 Ot V72.84 EXAM PRE-OPERATIVE NOS 01/07/2016 MAYKEL RIVER MD Ot 272.4 HYPERLIPIDEMIA NEC/NOS 01/07/2016 MAYKEL RIVER MD Ot 401.9 HYPERTENSION NOS 01/07/2016 MAYKEL RIVER MD Ot 414.9 CHR ISCHEMIC HRT DIS NOS 01/07/2016 MAYKEL RIVER MD Ot 428.0 CONGESTIVE HEART FAILURE NOS 01/07/2016 MAYKEL RIVER MD Ot 786.50 CHEST PAIN NOS 01/07/2016 MARQUES VASQUEZ Ot J18.9 PNEUMONIA, UNSPECIFIED ORGANISM 01/07/2016 QUENTIN NGUYỄN Ot 272.4 HYPERLIPIDEMIA NEC/NOS 01/07/2016 QUENTIN NGUYỄN Ot 401.9 HYPERTENSION NOS 01/07/2016 QUENTIN NGUYỄN Ot 414.00 CORON ATHEROSCLER NOS TYPE VESSEL, NATIV 01/07/2016 QUENTIN NGUYỄN Ot 428.0 CONGESTIVE HEART FAILURE NOS 01/07/2016 QUENTIN NGUYỄN Ot 272.4 HYPERLIPIDEMIA NEC/NOS 01/07/2016 QUENTIN NGUYỄN Ot 401.9 HYPERTENSION NOS 01/07/2016 QUENTIN NGUYỄN Ot 414.00 CORON ATHEROSCLER NOS TYPE VESSEL, NATIV 01/07/2016 QUENTIN NGUYỄN Ot 428.0 CONGESTIVE HEART FAILURE NOS 01/07/2016 MAYKEL RIVER MD Ot E78.2 MIXED HYPERLIPIDEMIA 01/07/2016 MAYKEL RIVER MD Ot I10 ESSENTIAL (PRIMARY) HYPERTENSION 01/07/2016 MAYKEL RIVER MD Ot I25.10 ATHSCL HEART DISEASE OF [place] CORONARY 01/07/2016 MAYKEL RIVER MD Ot I50.22 CHRONIC SYSTOLIC (CONGESTIVE) HEART FAIL 01/07/2016 MAYKEL RIVER MD Ot R07.89 OTHER CHEST PAIN 01/07/2016 MONTY SALES DOQUELINE S Ot R05 COUGH 01/07/2016 MONTY SALES DOQUELINE S Ot R91.8 OTHER NONSPECIFIC ABNORMAL FINDING OF EDD 01/07/2016 HOLLIENDCHANDNI ESCALERA CHRISTIAN S Ot R91.8 OTHER NONSPECIFIC ABNORMAL FINDING OF [place] 01/07/2016 MÓNICA ESCALERA CHRISTIAN S Ot E11.9 TYPE 2 DIABETES MELLITUS WITHOUT COMPLIC 01/07/2016 MÓNICA ESCALERA, CHRISTIAN S Ot E78.5 HYPERLIPIDEMIA, UNSPECIFIED 01/07/2016 MÓNICA ESCALERA CHRISTIAN S Ot Z51.81 ENCOUNTER FOR THERAPEUTIC DRUG LEVEL MON 01/07/2016 MÓNICA ESCALERA CHRISTIAN S Ot Z79.899 OTHER SPECIAL PROJECTS MANAGER (CURRENT) DRUG THERAPY 01/07/2016 ANA COLE, RJ Rangel Ot Z01.818 ENCOUNTER FOR OTHER PREPROCEDURAL EXAMIN 01/07/2016 ORENDER DO CHRISTIAN S Ot R05 COUGH 01/07/2016 MÓNICA ESCALERA CHRISTIAN S Ot J44.9 CHRONIC OBSTRUCTIVE PULMONARY DISEASE , U 01/10/2016 EDE EDGAR DO Ot J44.9 CHRONIC OBSTRUCTIVE PULMONARY DISEASE, U 01/10/2016 EDE EDGAR DO Ot R91.8 OTHER NONSPECIFIC ABNORMAL FINDING OF EDD 01/12/2016 HOLLIEKEVIN ESCALERA CHRISTIAN S Ot J44.9 CHRONIC OBSTRUCTIVE PULMONARY DISEASE , U 01/18/2016 HERVE EDE Ot J44.9 CHRONIC OBSTRUCTIVE PULMONARY DISEASE, U 01/18/2016 EDE EDGAR DO Juan Carlos Ot R91.8 OTHER NONSPECIFIC ABNORMAL FINDING OF EDD 02/01/2016 Ot 786.09 RESPIRATORY ABNORM NEC 02/01/2016 Ot 786.2 COUGH 02/01/2016 Ot V45.4 ARTHRODESIS STATUS 02/01/2016 Ot 397.0 TRICUSPID VALVE DISEASE 02/01/2016 Ot 401.9 HYPERTENSION NOS 02/01/2016 Ot 416.8 CHR PULMON HEART DIS NEC 02/01/2016 Ot 424.0 MITRAL VALVE DISORDER 02/01/2016 Ot 428.0 CONGESTIVE HEART FAILURE NOS 02/01/2016 Ot 496 CHR AIRWAY OBSTRUCT NEC 02/01/2016 Ot 786.2 COUGH 02/01/2016 Ot 786.05 SHORTNESS OF BREATH 02/01/2016 Ot 793.19 OTHER NONSPECIFIC ABNORMAL FINDING OF [place] 02/01/2016 Ot 786.05 SHORTNESS OF BREATH 02/01/2016 Ot V76.12 OTH SCREEN MAMMO-MALIGN NEOPLASM OF [place] 02/01/2016 Ot 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 02/01/2016 Ot V64.3 NO PROC FOR REASONS NEC 02/01/2016 Ot V72.84 EXAM PRE-OPERATIVE NOS 02/01/2016 Ot V72.84 EXAM PRE-OPERATIVE NOS 02/01/2016 PAVEL YOUNG MD Ot 592.0 CALCULUS OF KIDNEY 02/01/2016 PAVEL YOUNG MD Ot 599.0 URIN TRACT INFECTION NOS 02/01/2016 QUENTIN NGUYỄN Ot 272.4 HYPERLIPIDEMIA NEC/NOS 02/01/2016 QUENTIN NGUYỄN Ot 414.01 CORONARY ATHEROSCLEROSIS OF [place] CORON 02/01/2016 QUENTIN NGUYỄN Ot 427.31 ATRIAL FIBRILLATION 02/01/2016 QUENTIN NGUYỄN Ot 428.0 CONGESTIVE HEART FAILURE NOS 02/01/2016 QUENTIN NGUYỄN Ot 530.81 ESOPHAGEAL REFLUX 02/01/2016 QUENTIN NGUYỄN Ot 785.1 PALPITATIONS 02/01/2016 QUENTIN NGUYỄN Ot 786.50 CHEST PAIN NOS 02/01/2016 Ot 401.9 HYPERTENSION NOS 02/01/2016 Ot 414.01 CORONARY ATHEROSCLEROSIS OF [place] CORON 02/01/2016 Ot 427.31 ATRIAL FIBRILLATION 02/01/2016 Ot 428.0 CONGESTIVE HEART FAILURE NOS 02/01/2016 Ot 530.81 ESOPHAGEAL REFLUX 02/01/2016 Ot 785.1 PALPITATIONS 02/01/2016 Ot 786.50 CHEST PAIN NOS 02/01/2016 TONI COLE, KARINE Cool Ot 724.2 LUMBAGO 02/01/2016 TONI COLE, KARINE Cool Ot 729.5 PAIN IN LIMB 02/01/2016 Ot V72.84 EXAM PRE-OPERATIVE NOS 02/01/2016 MAYKEL RIVER MD Ot 272.4 HYPERLIPIDEMIA NEC/NOS 02/01/2016 MAYKEL RIVER MD Ot 401.9 HYPERTENSION NOS 02/01/2016 MAYKEL RIVER MD Ot 414.9 CHR ISCHEMIC HRT DIS NOS 02/01/2016 MAYKEL RIVER MD Ot 428.0 CONGESTIVE HEART FAILURE NOS 02/01/2016 MAYKEL RIVER MD Ot 786.50 CHEST PAIN NOS 02/01/2016 MARQUES VASQUEZ Ot J18.9 PNEUMONIA, UNSPECIFIED ORGANISM 02/01/2016 QUNETIN NGUYỄN Ot 272.4 HYPERLIPIDEMIA NEC/NOS 02/01/2016 QUENTIN NGUYỄN Ot 401.9 HYPERTENSION NOS 02/01/2016 QUENTIN NGYUỄN Ot 414.00 CORON ATHEROSCLER NOS TYPE VESSEL, NATIV 02/01/2016 QUENTIN NGUYỄN Ot 428.0 CONGESTIVE HEART FAILURE NOS 02/01/2016 QUENTIN NGUYỄN Ot 272.4 HYPERLIPIDEMIA NEC/NOS 02/01/2016 QUENTIN NGUYỄN Ot 401.9 HYPERTENSION NOS 02/01/2016 QUENTIN NGUYỄN Ot 414.00 CORON ATHEROSCLER NOS TYPE VESSEL, NATIV 02/01/2016 QUENTIN NGUYỄN Ot 428.0 CONGESTIVE HEART FAILURE NOS 02/01/2016 MAYKEL RIVER MD Ot E78.2 MIXED HYPERLIPIDEMIA 02/01/2016 MAYKEL RIVER MD Ot I10 ESSENTIAL (PRIMARY) HYPERTENSION 02/01/2016 MAYKEL RIVER MD Ot I25.10 ATHSCL HEART DISEASE OF [place] CORONARY 02/01/2016 MAYKEL RIVER MD Ot I50.22 CHRONIC SYSTOLIC (CONGESTIVE) HEART FAIL 02/01/2016 MAYKEL RIVER MD Ot R07.89 OTHER CHEST PAIN 02/01/2016 ORENDER DO, CHRISTIAN S Ot R05 COUGH 02/01/2016 ORENDER DO, CHRISTIAN S Ot R91.8 OTHER NONSPECIFIC ABNORMAL FINDING OF EDD 02/01/2016 ORENDER DO, CHRISTIAN S Ot R91.8 OTHER NONSPECIFIC ABNORMAL FINDING OF EDD 02/01/2016 ORENDER DO, CHRISTIAN S Ot E11.9 TYPE 2 DIABETES MELLITUS WITHOUT COMPLIC 02/01/2016 ORENDER DO, CHRISTIAN S Ot E78.5 HYPERLIPIDEMIA, UNSPECIFIED 02/01/2016 ORENDER DO, CHRISTIAN S Ot Z51.81 ENCOUNTER FOR THERAPEUTIC DRUG LEVEL MON 02/01/2016 ORENDER DO, CHRISTIAN S Ot Z79.899 OTHER SPECIAL PROJECTS MANAGER (CURRENT) DRUG THERAPY 02/01/2016 ANA COLE, RJ Rangel Ot Z01.818 ENCOUNTER FOR OTHER PREPROCEDURAL EXAMIN 02/01/2016 ORENDER DO, CHRISTIAN S Ot R05 COUGH 02/01/2016 ORENDER DO, CHRISTIAN S Ot J44.9 CHRONIC OBSTRUCTIVE PULMONARY DISEASE , U 02/01/2016 EDE EDGAR DO Ot J44.9 CHRONIC OBSTRUCTIVE PULMONARY DISEASE, U 02/01/2016 EDE EDGAR DO Ot R91.8 OTHER NONSPECIFIC ABNORMAL FINDING OF EDD 02/01/2016 ORENDER DO, CHRISTIAN S Ot C34.12 MALIGNANT NEOPLASM OF UPPER LOBE, LEFT B 02/01/2016 ORENDER DO, CHRISTIAN S Ot E11.9 TYPE 2 DIABETES MELLITUS WITHOUT COMPLIC 02/01/2016 ORENDER DO, CHRISTIAN S Ot I25.10 ATHSCL HEART DISEASE OF [place] CORONARY 02/01/2016 ORENDER DO, CHRISTIAN S Ot I50.9 HEART FAILURE, UNSPECIFIED 02/01/2016 ORENDER DO, CHRISTIAN S Ot Z79.899 OTHER SPECIAL PROJECTS MANAGER (CURRENT) DRUG THERAPY 02/07/2016 ORENDER DO, CHRISTIAN S Ot C34.12 MALIGNANT NEOPLASM OF UPPER LOBE, LEFT B 02/07/2016 ORENDER DO, CHRISTIAN S Ot E11.9 TYPE 2 DIABETES MELLITUS WITHOUT COMPLIC 02/07/2016 ORENDER DO, CHRISTIAN S Ot I25.10 ATHSCL HEART DISEASE OF [place] CORONARY 02/07/2016 ORENDER DO, CHRISTIAN S Ot I50.9 HEART FAILURE, UNSPECIFIED 02/07/2016 ORENDER DO, CHRISTIAN S Ot Z79.899 OTHER SPECIAL PROJECTS MANAGER (CURRENT) DRUG THERAPY 02/09/2016 ORENDER DO, CHRISTIAN S Ot C34.12 MALIGNANT NEOPLASM OF UPPER LOBE, LEFT B 02/09/2016 ORENDER DO, CHRISTIAN S Ot E11.9 TYPE 2 DIABETES MELLITUS WITHOUT COMPLIC 02/09/2016 ORENDER DO, CHRISTIAN S Ot I25.10 ATHSCL HEART DISEASE OF [place] CORONARY 02/09/2016 ORENDER DO, CHRISTIAN S Ot I50.9 HEART FAILURE, UNSPECIFIED 02/09/2016 ORENDER DO, CHRISTIAN S Ot Z79.899 OTHER SPECIAL PROJECTS MANAGER (CURRENT) DRUG THERAPY 03/01/2016 AMRIK GASPAR MD Ot M48.06 SPINAL STENOSIS, LUMBAR REGION 03/01/2016 AMRIK GASPAR MD Ot R91.8 OTHER NONSPECIFIC ABNORMAL FINDING OF EDD 03/01/2016 AMRIK GASPAR MD Ot Z12.31 ENCNTR SCREEN MAMMOGRAM FOR MALIGNANT NE 03/06/2016 AMRIK GASPAR MD Ot M48.06 SPINAL STENOSIS, LUMBAR REGION 03/06/2016 AMRIK GASPAR MD Ot R91.8 OTHER NONSPECIFIC ABNORMAL FINDING OF EDD 03/06/2016 AMRIK GASPAR MD Ot Z12.31 ENCNTR SCREEN MAMMOGRAM FOR MALIGNANT NE 03/13/2016 AMRIK GASPAR MD Ot C34.12 MALIGNANT NEOPLASM OF UPPER LOBE, LEFT B 03/13/2016 AMRIK GASPAR MD Ot E11.9 TYPE 2 DIABETES MELLITUS WITHOUT COMPLIC 03/13/2016 AMRIK GASPAR MD Ot I25.10 ATHSCL HEART DISEASE OF [place] CORONARY 03/13/2016 AMRIK GASPAR MD Ot Z79.899 OTHER SPECIAL PROJECTS MANAGER (CURRENT) DRUG THERAPY 03/13/2016 AMRIK GASPAR MD Ot M48.06 SPINAL STENOSIS, LUMBAR REGION 03/13/2016 AMRIK GASPAR MD Ot R91.8 OTHER NONSPECIFIC ABNORMAL FINDING OF EDD 03/13/2016 HUBERT COLE, AMRIK Aguilar Ot Z12.31 ENCNTR SCREEN MAMMOGRAM FOR MALIGNANT NE 03/14/2016 AMRIK GASPAR MD Ot C34.12 MALIGNANT NEOPLASM OF UPPER LOBE, LEFT B 03/14/2016 AMRIK GASPAR MD Ot E11.9 TYPE 2 DIABETES MELLITUS WITHOUT COMPLIC 03/14/2016 AMRIK GASPAR MD Ot I25.10 ATHSCL HEART DISEASE OF [place] CORONARY 03/14/2016 AMRIK GASPAR MD Ot Z79.899 OTHER SNF (CURRENT) DRUG THERAPY 03/14/2016 RJ PEREZ MD Ot C34.90 MALIGNANT NEOPLASM OF UNSP PART OF UNSP 03/14/2016 RJ PEREZ MD Ot Z01.818 ENCOUNTER FOR OTHER PREPROCEDURAL EXAMIN 03/19/2016 CHRISTIAN SALES DO Ot J44.9 CHRONIC OBSTRUCTIVE PULMONARY DISEASE , U 03/22/2016 RJ PEREZ MD Ot C34.12 MALIGNANT NEOPLASM OF UPPER LOBE, LEFT B 03/22/2016 RJ PEREZ MD Ot E78.5 HYPERLIPIDEMIA, UNSPECIFIED 03/22/2016 RJ PEREZ MD Ot I25.10 ATHSCL HEART DISEASE OF [place] CORONARY 03/22/2016 RJ PEREZ MD Ot J44.9 CHRONIC OBSTRUCTIVE PULMONARY DISEASE, U 03/22/2016 RJ PEREZ MD Ot T82.898A OTH COMPLICATION OF VASCULAR PROSTH DEV/ 03/22/2016 RJ PEREZ MD Ot Z11.2 ENCOUNTER FOR SCREENING FOR OTHER BACTER 03/22/2016 RJ PEREZ MD Ot Z79.899 OTHER SPECIAL PROJECTS MANAGER (CURRENT) DRUG THERAPY 03/24/2016 RJ PEREZ MD Ot C34.12 MALIGNANT NEOPLASM OF UPPER LOBE, LEFT B 03/24/2016 RJ PEREZ MD Ot E78.5 HYPERLIPIDEMIA, UNSPECIFIED 03/24/2016 RJ PEREZ MD Ot I25.10 ATHSCL HEART DISEASE OF [place] CORONARY 03/24/2016 RJ PEREZ MD Ot J44.9 CHRONIC OBSTRUCTIVE PULMONARY DISEASE, U 03/24/2016 RJ PEREZ MD Ot T82.898A OTH COMPLICATION OF VASCULAR PROSTH DEV/ 03/24/2016 RJ PEREZ MD Ot Z11.2 ENCOUNTER FOR SCREENING FOR OTHER BACTER 03/24/2016 ANA COLE, RJ Rangel Ot Z79.899 OTHER SPECIAL PROJECTS MANAGER (CURRENT) DRUG THERAPY 03/28/2016 ANA COLE, RJ Rangel Ot C34.12 MALIGNANT NEOPLASM OF UPPER LOBE, LEFT B 03/28/2016 ANA COLE, RJ Rangel Ot E78.5 HYPERLIPIDEMIA, UNSPECIFIED 03/28/2016 ANA COLE, RJ Rangel Ot I25.10 ATHSCL HEART DISEASE OF [place] CORONARY 03/28/2016 ANA COLE, RJ Rangel Ot J44.9 CHRONIC OBSTRUCTIVE PULMONARY DISEASE, U 03/28/2016 AAN COLE, RJ Rangel Ot T82.898A OTH COMPLICATION OF VASCULAR PROSTH DEV/ 03/28/2016 ANA COLE, RJ Rangel Ot Z11.2 ENCOUNTER FOR SCREENING FOR OTHER BACTER 03/28/2016 ANA COLE, RJ Rangel Ot Z79.899 OTHER SPECIAL PROJECTS MANAGER (CURRENT) DRUG THERAPY 04/12/2016 ORENDER DO, CHRISTIAN S Ot C34.12 MALIGNANT NEOPLASM OF UPPER LOBE, LEFT B 04/12/2016 ORENDER DO, CHRISTIAN S Ot E11.9 TYPE 2 DIABETES MELLITUS WITHOUT COMPLIC 04/12/2016 ORENDER DO, CHRISTIAN S Ot I25.10 ATHSCL HEART DISEASE OF [place] CORONARY 04/12/2016 HOLLIENDER DO, CHRISTIAN S Ot I50.9 HEART FAILURE, UNSPECIFIED 04/12/2016 ORENDER DO, CHRISTIAN S Ot Z79.899 OTHER SPECIAL PROJECTS MANAGER (CURRENT) DRUG THERAPY 04/20/2016 Ot 401.9 HYPERTENSION NOS 04/20/2016 Ot 414.01 CORONARY ATHEROSCLEROSIS OF [place] CORON 04/20/2016 Ot 427.31 ATRIAL FIBRILLATION 04/20/2016 Ot 428.0 CONGESTIVE HEART FAILURE NOS 04/20/2016 Ot 530.81 ESOPHAGEAL REFLUX 04/20/2016 Ot 785.1 PALPITATIONS 04/20/2016 Ot 786.50 CHEST PAIN NOS 04/20/2016 ORENDER DO, CHRISTIAN S Ot E11.9 TYPE 2 DIABETES MELLITUS WITHOUT COMPLIC 04/20/2016 ORENDER DO, CHRISTIAN S Ot E78.5 HYPERLIPIDEMIA, UNSPECIFIED 04/20/2016 ORENDER DO, CHRISTIAN S Ot Z51.81 ENCOUNTER FOR THERAPEUTIC DRUG LEVEL MON 04/20/2016 ORENDER DO, CHRISTIAN S Ot Z79.899 OTHER SNF (CURRENT) DRUG THERAPY 04/20/2016 AMRIK GASPAR MD Ot C34.12 MALIGNANT NEOPLASM OF UPPER LOBE, LEFT B 04/20/2016 AMRIK GASPAR MD Ot E11.9 TYPE 2 DIABETES MELLITUS WITHOUT COMPLIC 04/20/2016 AMRIK GASPAR MD Ot I25.10 ATHSCL HEART DISEASE OF [place] CORONARY 04/20/2016 AMRIK GASPAR MD Ot Z79.899 OTHER SNF (CURRENT) DRUG THERAPY 04/20/2016 CHRISTIAN SALES DO Ot J44.9 CHRONIC OBSTRUCTIVE PULMONARY DISEASE , U 04/21/2016 Ot 786.09 RESPIRATORY ABNORM NEC 04/21/2016 Ot 786.2 COUGH 04/21/2016 Ot V45.4 ARTHRODESIS STATUS 04/21/2016 Ot 397.0 TRICUSPID VALVE DISEASE 04/21/2016 Ot 401.9 HYPERTENSION NOS 04/21/2016 Ot 416.8 CHR PULMON HEART DIS NEC 04/21/2016 Ot 424.0 MITRAL VALVE DISORDER 04/21/2016 Ot 428.0 CONGESTIVE HEART FAILURE NOS 04/21/2016 Ot 496 CHR AIRWAY OBSTRUCT NEC 04/21/2016 Ot 786.2 COUGH 04/21/2016 Ot 786.05 SHORTNESS OF BREATH 04/21/2016 Ot 793.19 OTHER NONSPECIFIC ABNORMAL FINDING OF EDD 04/21/2016 Ot 786.05 SHORTNESS OF BREATH 04/21/2016 Ot V76.12 OTH SCREEN MAMMO-MALIGN NEOPLASM OF [place] 04/21/2016 Ot 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 04/21/2016 Ot V64.3 NO PROC FOR REASONS NEC 04/21/2016 Ot V72.84 EXAM PRE-OPERATIVE NOS 04/21/2016 Ot V72.84 EXAM PRE-OPERATIVE NOS 04/21/2016 PAVEL YOUNG MD Ot 592.0 CALCULUS OF KIDNEY 04/21/2016 PAVEL YOUNG MD Ot 599.0 URIN TRACT INFECTION NOS 04/21/2016 QUENTIN NGUYỄN Ot 272.4 HYPERLIPIDEMIA NEC/NOS 04/21/2016 QUENTIN NGUYỄN Ot 414.01 CORONARY ATHEROSCLEROSIS OF [place] CORON 04/21/2016 QUENTIN NGUYỄN Ot 427.31 ATRIAL FIBRILLATION 04/21/2016 QUENTIN NGUYỄN Ot 428.0 CONGESTIVE HEART FAILURE NOS 04/21/2016 QUENTIN NGUYỄN Ot 530.81 ESOPHAGEAL REFLUX 04/21/2016 QUENTIN NGUYỄN Ot 785.1 PALPITATIONS 04/21/2016 QUENTIN NGUYỄN Ot 786.50 CHEST PAIN NOS 04/21/2016 Ot 401.9 HYPERTENSION NOS 04/21/2016 Ot 414.01 CORONARY ATHEROSCLEROSIS OF [place] CORON 04/21/2016 Ot 427.31 ATRIAL FIBRILLATION 04/21/2016 Ot 428.0 CONGESTIVE HEART FAILURE NOS 04/21/2016 Ot 530.81 ESOPHAGEAL REFLUX 04/21/2016 Ot 785.1 PALPITATIONS 04/21/2016 Ot 786.50 CHEST PAIN NOS 04/21/2016 TONI COLE, KARINE Cool Ot 724.2 LUMBAGO 04/21/2016 KARINE MUÑOZ MD Ot 729.5 PAIN IN LIMB 04/21/2016 Ot V72.84 EXAM PRE-OPERATIVE NOS 04/21/2016 MAYKEL RIVER MD Ot 272.4 HYPERLIPIDEMIA NEC/NOS 04/21/2016 MAYKEL RIVER MD Ot 401.9 HYPERTENSION NOS 04/21/2016 MAYKEL RIVER MD Ot 414.9 CHR ISCHEMIC HRT DIS NOS 04/21/2016 MAYKEL RIVER MD Ot 428.0 CONGESTIVE HEART FAILURE NOS 04/21/2016 MAYKEL RIVER MD Ot 786.50 CHEST PAIN NOS 04/21/2016 MARQUES VASQUEZ Ot J18.9 PNEUMONIA, UNSPECIFIED ORGANISM 04/21/2016 QUENTIN NGUYỄN Ot 272.4 HYPERLIPIDEMIA NEC/NOS 04/21/2016 QUENTIN NGUYỄN Ot 401.9 HYPERTENSION NOS 04/21/2016 QUENTIN NGUYỄN Ot 414.00 CORON ATHEROSCLER NOS TYPE VESSEL, NATIV 04/21/2016 QUENTIN NGUYỄN Ot 428.0 CONGESTIVE HEART FAILURE NOS 04/21/2016 QUENTIN NGUYỄN Ot 272.4 HYPERLIPIDEMIA NEC/NOS 04/21/2016 QUENTIN NGUYỄN Ot 401.9 HYPERTENSION NOS 04/21/2016 QUENTIN NGUYỄN Ot 414.00 CORON ATHEROSCLER NOS TYPE VESSEL, NATIV 04/21/2016 QUENTIN NGUYỄN Ot 428.0 CONGESTIVE HEART FAILURE NOS 04/21/2016 MAYKEL RIVER MD Ot E78.2 MIXED HYPERLIPIDEMIA 04/21/2016 MAYKEL RIVER MD Ot I10 ESSENTIAL (PRIMARY) HYPERTENSION 04/21/2016 MAYKEL RIVER MD Ot I25.10 ATHSCL HEART DISEASE OF [place] CORONARY 04/21/2016 MAYKEL RIVER MD Ot I50.22 CHRONIC SYSTOLIC (CONGESTIVE) HEART FAIL 04/21/2016 MAYKEL RIVER MD Ot R07.89 OTHER CHEST PAIN 04/21/2016 HOLLIENDER DO, CHRISTIAN S Ot R05 COUGH 04/21/2016 ORENDER DO, CHRISTIAN S Ot R91.8 OTHER NONSPECIFIC ABNORMAL FINDING OF EDD 04/21/2016 ORENDER DO, CHRISTIAN S Ot R91.8 OTHER NONSPECIFIC ABNORMAL FINDING OF EDD 04/21/2016 ORENDER DO, CHRISTIAN S Ot E11.9 TYPE 2 DIABETES MELLITUS WITHOUT COMPLIC 04/21/2016 ORENDER DO, CHRISTIAN S Ot E78.5 HYPERLIPIDEMIA, UNSPECIFIED 04/21/2016 ORENDER DO, CHRISTIAN S Ot Z51.81 ENCOUNTER FOR THERAPEUTIC DRUG LEVEL MON 04/21/2016 ORENDER DO, CHRISTIAN S Ot Z79.899 OTHER SPECIAL PROJECTS MANAGER (CURRENT) DRUG THERAPY 04/21/2016 RJ PEREZ MD Ot Z01.818 ENCOUNTER FOR OTHER PREPROCEDURAL EXAMIN 04/21/2016 ORENDER DO CHRISTIAN S Ot R05 COUGH 04/21/2016 EDE EDGAR DO Ot J44.9 CHRONIC OBSTRUCTIVE PULMONARY DISEASE, U 04/21/2016 EDE EDGAR DO Ot R91.8 OTHER NONSPECIFIC ABNORMAL FINDING OF EDD 04/21/2016 AMRIK GASPAR MD Ot C34.12 MALIGNANT NEOPLASM OF UPPER LOBE, LEFT B 04/21/2016 AMRIK GASPAR MD Ot E11.9 TYPE 2 DIABETES MELLITUS WITHOUT COMPLIC 04/21/2016 AMRIK GASPAR MD Ot I25.10 ATHSCL HEART DISEASE OF [place] CORONARY 04/21/2016 AMRIK GASPAR MD Ot Z79.899 OTHER SPECIAL PROJECTS MANAGER (CURRENT) DRUG THERAPY 04/21/2016 AMRIK GASPAR MD Ot M48.06 SPINAL STENOSIS, LUMBAR REGION 04/21/2016 HUBERT COLE, AMRIK Aguilar Ot R91.8 OTHER NONSPECIFIC ABNORMAL FINDING OF EDD 04/21/2016 HUBERT COLE, AMRIK Jeff Ot Z12.31 ENCNTR SCREEN MAMMOGRAM FOR MALIGNANT NE 04/21/2016 CHRISTIAN SALES DO S Ot J44.9 CHRONIC OBSTRUCTIVE PULMONARY DISEASE , U 04/21/2016 YAHIR SALES DOLINE S Ot A41.9 SEPSIS, UNSPECIFIED ORGANISM 04/21/2016 CHRISTIAN SALES DO S Ot C34.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 NEOPLASM OF LOWER LOBE, LEFT B 04/21/2016 CHRISTIAN SALES DO S Ot D50.9 IRON DEFICIENCY ANEMIA, UNSPECIFIED 04/21/2016 YAHIR SALES DOLINE S Ot E11.65 TYPE 2 DIABETES MELLITUS WITH HYPERGLYCE 04/21/2016 YAHIR SALES DOLINE S Ot E66.01 MORBID (SEVERE) OBESITY DUE TO EXCESS CA 04/21/2016 YAHIR SALES DOLINE S Ot F32.9 MAJOR DEPRESSIVE DISORDER, SINGLE EPISOD 04/21/2016 YAHIR SALES DOLINE S Ot F41.9 ANXIETY DISORDER, UNSPECIFIED 04/21/2016 YAHIR SALES DOLINE S Ot I25.10 ATHSCL HEART DISEASE OF [place] CORONARY 04/21/2016 YAHIR SALES DOLINE S Ot I47.1 SUPRAVENTRICULAR TACHYCARDIA 04/21/2016 YAHIR SALES DOLINE S Ot J18.9 PNEUMONIA, UNSPECIFIED ORGANISM 04/21/2016 CHRISTIAN SALES DO S Ot J44.0 CHRONIC OBSTRUCTIVE PULMON DISEASE W ACU 04/21/2016 YAHIR SALES DOLINE S Ot J96.00 ACUTE RESPIRATORY FAILURE, UNSP W HYPOXI 04/21/2016 YAHIR SALES DOLINE S Ot K21.9 GASTRO-ESOPHAGEAL REFLUX DISEASE WITHOUT 04/21/2016 MONTY SALES DOQUELINE S Ot Z68.36 BODY MASS INDEX (BMI) 36.0-36.9, ADULT 04/21/2016 YAHIR SALES DOLINE S Ot Z87.891 PERSONAL HISTORY OF NICOTINE DEPENDENCE 04/22/2016 YAHIR SALES DOLINE S Ot A41.9 SEPSIS, UNSPECIFIED ORGANISM 04/22/2016 ORENDER DO, CHRISTIAN S Ot C34.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 NEOPLASM OF LOWER LOBE, LEFT B 04/22/2016 MÓNICA ESCALERA CHRISTIAN S Ot D50.9 IRON DEFICIENCY ANEMIA, UNSPECIFIED 04/22/2016 HOLLIENDER DO, CHRISTIAN S Ot E11.65 TYPE 2 DIABETES MELLITUS WITH HYPERGLYCE 04/22/2016 HOLLIENDER DO, CHRISTIAN S Ot E66.01 MORBID (SEVERE) OBESITY DUE TO EXCESS CA 04/22/2016 HOLLIENDCHANDNI ESCALERA, CHRISTIAN S Ot F32.9 MAJOR DEPRESSIVE DISORDER, SINGLE EPISOD 04/22/2016 MÓNICA ESCALERA, CHRISTIAN S Ot F41.9 ANXIETY DISORDER, UNSPECIFIED 04/22/2016 MÓNICA ESCALERA CHRISTIAN S Ot I25.10 ATHSCL HEART DISEASE OF [place] CORONARY 04/22/2016 MÓNICA ESCALERA CHRISTIAN S Ot I47.1 SUPRAVENTRICULAR TACHYCARDIA 04/22/2016 MÓNICA ESCALERA CHRISTIAN S Ot J18.9 PNEUMONIA, UNSPECIFIED ORGANISM 04/22/2016 MÓNICA ESCALERA CHRISTIAN S Ot J44.0 CHRONIC OBSTRUCTIVE PULMON DISEASE W ACU 04/22/2016 MÓNICA ESCALERA CHRISTIAN S Ot J96.00 ACUTE RESPIRATORY FAILURE, UNSP W HYPOXI 04/22/2016 MÓNICA ESCALERA CHRISTIAN S Ot K21.9 GASTRO-ESOPHAGEAL REFLUX DISEASE WITHOUT 04/22/2016 HOLLIENDER , CHRISTIAN S Ot Z68.36 BODY MASS INDEX (BMI) 36.0-36.9, ADULT 04/22/2016 MÓNICA ESCALERA CHRISTIAN S Ot Z87.891 PERSONAL HISTORY OF NICOTINE DEPENDENCE 04/22/2016 MÓNICA ESCALERA CHRISTIAN S Ot A41.9 SEPSIS, UNSPECIFIED ORGANISM 04/22/2016 HOLLIENDER , CHRISTIAN S Ot C34.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 NEOPLASM OF LOWER LOBE, LEFT B 04/22/2016 MÓNICA ESCALERA, CHRISTIAN S Ot D50.9 IRON DEFICIENCY ANEMIA, UNSPECIFIED 04/22/2016 HOLLIENDER DO, CHRISTIAN S Ot E11.65 TYPE 2 DIABETES MELLITUS WITH HYPERGLYCE 04/22/2016 HOLLIENDCHANDNI ESCALERA, CHRISTIAN S Ot E66.01 MORBID (SEVERE) OBESITY DUE TO EXCESS CA 04/22/2016 HOLLEINDCHANDNI ESCALERA, CHRISTIAN S Ot F32.9 MAJOR DEPRESSIVE DISORDER, SINGLE EPISOD 04/22/2016 MÓNICA ESCALERA, CHRISTIAN S Ot F41.9 ANXIETY DISORDER, UNSPECIFIED 04/22/2016 MÓNICA ESCALERA CHRISTIAN S Ot I25.10 ATHSCL HEART DISEASE OF [place] CORONARY 04/22/2016 MÓNICA ESCALERA CHRISTIAN S Ot I47.1 SUPRAVENTRICULAR TACHYCARDIA 04/22/2016 MÓNICA ESCALERA CHRISTIAN S Ot J18.9 PNEUMONIA, UNSPECIFIED ORGANISM 04/22/2016 HOLLIENDCHANDNI ESCALERA CHRISTIAN S Ot J44.0 CHRONIC OBSTRUCTIVE PULMON DISEASE W ACU 04/22/2016 MÓNICA ESCALERA CHRISTIAN S Ot J96.00 ACUTE RESPIRATORY FAILURE, UNSP W HYPOXI 04/22/2016 MÓNICA ESCALERA CHRISTIAN S Ot K21.9 GASTRO-ESOPHAGEAL REFLUX DISEASE WITHOUT 04/22/2016 MÓNICA ESCALERA CHRISTIAN S Ot Z68.36 BODY MASS INDEX (BMI) 36.0-36.9, ADULT 04/22/2016 MÓNICA ESCALERA CHRISTIAN S Ot Z87.891 PERSONAL HISTORY OF NICOTINE DEPENDENCE 04/23/2016 MÓNICA ESCALERA CHRISTIAN S Ot A41.9 SEPSIS, UNSPECIFIED ORGANISM 04/23/2016 MÓNICA ESCALERA CHRISTIAN S Ot C34.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 NEOPLASM OF LOWER LOBE, LEFT B 04/23/2016 MÓNICA ESCALERA CHRISTIAN S Ot D50.9 IRON DEFICIENCY ANEMIA, UNSPECIFIED 04/23/2016 MÓNICA ESCALERA CHRISTIAN S Ot E11.65 TYPE 2 DIABETES MELLITUS WITH HYPERGLYCE 04/23/2016 MÓNICA ESCALERA CHRISTIAN S Ot E66.01 MORBID (SEVERE) OBESITY DUE TO EXCESS CA 04/23/2016 MÓNICA ESCALERA CHRISTIAN S Ot F32.9 MAJOR DEPRESSIVE DISORDER, SINGLE EPISOD 04/23/2016 MÓNICA ESCALERA, CHRISTIAN S Ot F41.9 ANXIETY DISORDER, UNSPECIFIED 04/23/2016 MÓNICA ESCALERA, CHRISTIAN S Ot I25.10 ATHSCL HEART DISEASE OF [place] CORONARY 04/23/2016 MÓNICA ESCALERA CHRISTIAN S Ot I47.1 SUPRAVENTRICULAR TACHYCARDIA 04/23/2016 MÓNICA ESCALERA CHRISTIAN S Ot J18.9 PNEUMONIA, UNSPECIFIED ORGANISM 04/23/2016 MÓNICA ESCALERA CHRISTIAN S Ot J44.0 CHRONIC OBSTRUCTIVE PULMON DISEASE W ACU 04/23/2016 HOLLIEKEVIN ESCALERA CHRISTIAN Buck Ot J96.00 ACUTE RESPIRATORY FAILURE, UNSP W HYPOXI 04/23/2016 MÓNICA ESCALERA CHRISTIAN S Ot K21.9 GASTRO-ESOPHAGEAL REFLUX DISEASE WITHOUT 04/23/2016 MÓNICA ESCALERA CHRISTIAN S Ot Z68.36 BODY MASS INDEX (BMI) 36.0-36.9, ADULT 04/23/2016 TANYACHANDNI DO CHRISTIAN S Ot Z87.891 PERSONAL HISTORY OF NICOTINE DEPENDENCE 04/23/2016 Ot 401.9 HYPERTENSION NOS 04/23/2016 Ot 414.01 CORONARY ATHEROSCLEROSIS OF [place] CORON 04/23/2016 Ot 427.31 ATRIAL FIBRILLATION 04/23/2016 Ot 428.0 CONGESTIVE HEART FAILURE NOS 04/23/2016 Ot 530.81 ESOPHAGEAL REFLUX 04/23/2016 Ot 785.1 PALPITATIONS 04/23/2016 Ot 786.50 CHEST PAIN NOS 04/23/2016 MÓNICA ESCALERA CHRISTIAN S Ot E11.9 TYPE 2 DIABETES MELLITUS WITHOUT COMPLIC 04/23/2016 MÓNICA ESCALERA CHRISTIAN S Ot E78.5 HYPERLIPIDEMIA, UNSPECIFIED 04/23/2016 MÓNICA ESCALERA CHRISTIAN S Ot Z51.81 ENCOUNTER FOR THERAPEUTIC DRUG LEVEL MON 04/23/2016 MÓNICA ESCALERA CHRISTIAN S Ot Z79.899 OTHER SPECIAL PROJECTS MANAGER (CURRENT) DRUG THERAPY 04/23/2016 MONTY SALES DOQUELINE S Ot J44.9 CHRONIC OBSTRUCTIVE PULMONARY DISEASE , U 04/23/2016 MÓNICA ESCALERA CHRISTIAN S Ot A41.9 SEPSIS, UNSPECIFIED ORGANISM 04/23/2016 MÓNICA ESCALERA CHRISTIAN S Ot C34.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 NEOPLASM OF LOWER LOBE, LEFT B 04/23/2016 MÓNICA ESCALERA CHRISTIAN S Ot D50.9 IRON DEFICIENCY ANEMIA, UNSPECIFIED 04/23/2016 MÓNICA ESCALERA CHRISTIAN S Ot E11.65 TYPE 2 DIABETES MELLITUS WITH HYPERGLYCE 04/23/2016 MÓNICA ESCALERA CHRISTIAN S Ot E66.01 MORBID (SEVERE) OBESITY DUE TO EXCESS CA 04/23/2016 MÓNICA ESCALERA CHRISTIAN S Ot F32.9 MAJOR DEPRESSIVE DISORDER, SINGLE EPISOD 04/23/2016 MÓNICA ESCALERA CHRISTIAN S Ot F41.9 ANXIETY DISORDER, UNSPECIFIED 04/23/2016 MÓNICA ESCALERA CHRISTIAN S Ot I25.10 ATHSCL HEART DISEASE OF [place] CORONARY 04/23/2016 MÓNICA ESCALERA CHRISTIAN S Ot I47.1 SUPRAVENTRICULAR TACHYCARDIA 04/23/2016 MÓNICA YAHIR ESCALERALINE S Ot J18.9 PNEUMONIA, UNSPECIFIED ORGANISM 04/23/2016 MÓNICA DO CHRISTIAN S Ot J44.0 CHRONIC OBSTRUCTIVE PULMON DISEASE W ACU 04/23/2016 MÓNICA ESCALERA CHRISTIAN S Ot J96.00 ACUTE RESPIRATORY FAILURE, UNSP W HYPOXI 04/23/2016 HOLLIEKEVIN DO CHRISTIAN S Ot K21.9 GASTRO-ESOPHAGEAL REFLUX DISEASE WITHOUT 04/23/2016 HOLLIEKEVIN ESCALERA CHRISTIAN S Ot Z68.36 BODY MASS INDEX (BMI) 36.0-36.9, ADULT 04/23/2016 HOLLIEKEVIN ESCALERA CHRISTIAN S Ot Z87.891 PERSONAL HISTORY OF NICOTINE DEPENDENCE 04/24/2016 HOLLIEKEVIN DO CHRISTIAN S Ot A41.9 SEPSIS, UNSPECIFIED ORGANISM 04/24/2016 HOLLIEKEVIN DO CHRISTIAN S Ot C34.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 NEOPLASM OF LOWER LOBE, LEFT B 04/24/2016 HOLLIEKEVIN ESCALERA CHRISTIAN S Ot D50.9 IRON DEFICIENCY ANEMIA, UNSPECIFIED 04/24/2016 HOLLIEKEVIN ESCALERA CHRISTIAN S Ot E11.65 TYPE 2 DIABETES MELLITUS WITH HYPERGLYCE 04/24/2016 HOLLIEKEVIN DO CHRISTIAN S Ot E66.01 MORBID (SEVERE) OBESITY DUE TO EXCESS CA 04/24/2016 HOLLIEKEVIN DO CHRISTIAN S Ot F32.9 MAJOR DEPRESSIVE DISORDER, SINGLE EPISOD 04/24/2016 MÓNICA ESCALERAMONTYCHRISTIAN S Ot F41.9 ANXIETY DISORDER, UNSPECIFIED 04/24/2016 HOLLIEKEVIN ESCALERA CHRISTIAN S Ot I25.10 ATHSCL HEART DISEASE OF [place] CORONARY 04/24/2016 HOLLIEKEVIN ESCALERA CHRISTIAN S Ot I47.1 SUPRAVENTRICULAR TACHYCARDIA 04/24/2016 HOLLIEKEVIN YAHIR ESCALERALINE S Ot J18.9 PNEUMONIA, UNSPECIFIED ORGANISM 04/24/2016 MONTY SALES DOQUELINE S Ot J44.0 CHRONIC OBSTRUCTIVE PULMON DISEASE W ACU 04/24/2016 MÓNICA ESCALERA CHRISTIAN S Ot J96.00 ACUTE RESPIRATORY FAILURE, UNSP W HYPOXI 04/24/2016 MÓNICA ESCALERA CHRISTIAN S Ot K21.9 GASTRO-ESOPHAGEAL REFLUX DISEASE WITHOUT 04/24/2016 MÓNICA ESCALERA CHRISTIAN S Ot Z68.36 BODY MASS INDEX (BMI) 36.0-36.9, ADULT 04/24/2016 CHRISTIAN SALES DO S Ot Z87.891 PERSONAL HISTORY OF NICOTINE DEPENDENCE 04/24/2016 MÓNICA ESCALERA CHRISTIAN S Ot A41.9 SEPSIS, UNSPECIFIED ORGANISM 04/24/2016 MÓNICA ESCALERA CHRISTIAN S Ot C34.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 NEOPLASM OF LOWER LOBE, LEFT B 04/24/2016 MÓNICA ESCALERA CHRISTIAN S Ot D50.9 IRON DEFICIENCY ANEMIA, UNSPECIFIED 04/24/2016 MÓNICA ESCALERA CHRISTIAN S Ot E11.65 TYPE 2 DIABETES MELLITUS WITH HYPERGLYCE 04/24/2016 MÓNICA ESCALERA CHRISTIAN S Ot E66.01 MORBID (SEVERE) OBESITY DUE TO EXCESS CA 04/24/2016 MÓNICA ESCALERA CHRISTIAN S Ot F32.9 MAJOR DEPRESSIVE DISORDER, SINGLE EPISOD 04/24/2016 MÓNICA ESCALERA CHRISTIAN S Ot F41.9 ANXIETY DISORDER, UNSPECIFIED 04/24/2016 HOLLIEKEVIN ESCALERA CHRISTIAN S Ot I25.10 ATHSCL HEART DISEASE OF [place] CORONARY 04/24/2016 HOLLIEKEVIN ESCALERA CHRISTIAN S Ot I47.1 SUPRAVENTRICULAR TACHYCARDIA 04/24/2016 HOLLIEKEVIN DO CHRISTIAN S Ot J18.9 PNEUMONIA, UNSPECIFIED ORGANISM 04/24/2016 MÓNICA ESCALERA CHRISTIAN S Ot J44.0 CHRONIC OBSTRUCTIVE PULMON DISEASE W ACU 04/24/2016 MÓNICA ESCALERA CHRISTIAN S Ot J96.00 ACUTE RESPIRATORY FAILURE, UNSP W HYPOXI 04/24/2016 HOLLIEKEVIN ESCALERA CHRISTIAN S Ot K21.9 GASTRO-ESOPHAGEAL REFLUX DISEASE WITHOUT 04/24/2016 MÓNICA ESCALERA CHRISTIAN S Ot Z68.36 BODY MASS INDEX (BMI) 36.0-36.9, ADULT 04/24/2016 MÓNICA ESCALERA CHRISTIAN S Ot Z87.891 PERSONAL HISTORY OF NICOTINE DEPENDENCE 04/24/2016 MÓNICA ESCALERA CHRISTIAN S Ot A41.9 SEPSIS, UNSPECIFIED ORGANISM 04/24/2016 MÓNICA ESCALERA CHRISTIAN S Ot C34.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 NEOPLASM OF LOWER LOBE, LEFT B 04/24/2016 MÓNICA ESCALERA CHRISTIAN S Ot D50.9 IRON DEFICIENCY ANEMIA, UNSPECIFIED 04/24/2016 MÓNICA ESCALERA CHRISTIAN S Ot E11.65 TYPE 2 DIABETES MELLITUS WITH HYPERGLYCE 04/24/2016 MÓNICA ESCALERA CHRISTIAN S Ot E66.01 MORBID (SEVERE) OBESITY DUE TO EXCESS CA 04/24/2016 MÓNICA ESCALERA CHRISTIAN S Ot F32.9 MAJOR DEPRESSIVE DISORDER, SINGLE EPISOD 04/24/2016 MÓNICA ESCALERA CHRISTIAN S Ot F41.9 ANXIETY DISORDER, UNSPECIFIED 04/24/2016 HOLLIEKEVIN ESCALERA CHRISTIAN S Ot I25.10 ATHSCL HEART DISEASE OF [place] CORONARY 04/24/2016 MÓNICA ESCALERA CHRISTIAN S Ot I47.1 SUPRAVENTRICULAR TACHYCARDIA 04/24/2016 HOLLIEKEVIN ESCALERA CHRISTIAN S Ot J18.9 PNEUMONIA, UNSPECIFIED ORGANISM 04/24/2016 MÓNICA ESCALERA CHRISTIAN S Ot J44.0 CHRONIC OBSTRUCTIVE PULMON DISEASE W ACU 04/24/2016 HOLLIEKEVIN ESCALERA CHRISTIAN S Ot J96.00 ACUTE RESPIRATORY FAILURE, UNSP W HYPOXI 04/24/2016 HOLLIEKEVIN DO CHRISTIAN S Ot K21.9 GASTRO-ESOPHAGEAL REFLUX DISEASE WITHOUT 04/24/2016 HOLLIEKEVIN ESCALERA CHRISTIAN S Ot Z68.36 BODY MASS INDEX (BMI) 36.0-36.9, ADULT 04/24/2016 MÓNICA ESCALERA CHRISTIAN S Ot Z87.891 PERSONAL HISTORY OF NICOTINE DEPENDENCE 04/25/2016 HOLLIEKEVIN ESCALERA CHRISTIAN S Ot A41.9 SEPSIS, UNSPECIFIED ORGANISM 04/25/2016 MÓNICA ESCALERA CHRISTIAN S Ot C34.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 NEOPLASM OF LOWER LOBE, LEFT B 04/25/2016 HOLLIEKEVIN ESCALERA CHRISTIAN S Ot D50.9 IRON DEFICIENCY ANEMIA, UNSPECIFIED 04/25/2016 MÓNICA ESCALERA CHRISTIAN S Ot E11.65 TYPE 2 DIABETES MELLITUS WITH HYPERGLYCE 04/25/2016 YAHIR SALES DOLINE S Ot E66.01 MORBID (SEVERE) OBESITY DUE TO EXCESS CA 04/25/2016 YAHIR SALES DOLINE S Ot F32.9 MAJOR DEPRESSIVE DISORDER, SINGLE EPISOD 04/25/2016 YAHIR SALES DOLINE S Ot F41.9 ANXIETY DISORDER, UNSPECIFIED 04/25/2016 YAHIR SALES DOLINE S Ot I25.10 ATHSCL HEART DISEASE OF [place] CORONARY 04/25/2016 YAHIR SALES DOLINE S Ot I47.1 SUPRAVENTRICULAR TACHYCARDIA 04/25/2016 YAHIR SALES DOLINE S Ot J18.9 PNEUMONIA, UNSPECIFIED ORGANISM 04/25/2016 YAHIR SALES DOLINE S Ot J44.0 CHRONIC OBSTRUCTIVE PULMON DISEASE W ACU 04/25/2016 YAHIR SALES DOLINE S Ot J96.00 ACUTE RESPIRATORY FAILURE, UNSP W HYPOXI 04/25/2016 MÓNICA ESCALERA CHRISTIAN S Ot K21.9 GASTRO-ESOPHAGEAL REFLUX DISEASE WITHOUT 04/25/2016 YAHIR SALES DOLINE S Ot Z68.36 BODY MASS INDEX (BMI) 36.0-36.9, ADULT 04/25/2016 CHRISTIAN SALES DO S Ot Z87.891 PERSONAL HISTORY OF NICOTINE DEPENDENCE 04/26/2016 YAHIR SALES DOLINE S Ot A41.9 SEPSIS, UNSPECIFIED ORGANISM 04/26/2016 YAHIR SALES DOLINE S Ot C34.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 NEOPLASM OF LOWER LOBE, LEFT B 04/26/2016 MÓNICA ESCALERA CHRISTIAN S Ot D50.9 IRON DEFICIENCY ANEMIA, UNSPECIFIED 04/26/2016 MÓNICA ESCALERA, CHRISTIAN S Ot E11.65 TYPE 2 DIABETES MELLITUS WITH HYPERGLYCE 04/26/2016 YAHIR SALES DOLINE S Ot E66.01 MORBID (SEVERE) OBESITY DUE TO EXCESS CA 04/26/2016 MÓNICA ESCALERA, CHRISTIAN S Ot F32.9 MAJOR DEPRESSIVE DISORDER, SINGLE EPISOD 04/26/2016 MÓNICA ESCALERA CHRISTIAN S Ot F41.9 ANXIETY DISORDER, UNSPECIFIED 04/26/2016 MÓNICA ESCALERA CHRISTIAN S Ot I25.10 ATHSCL HEART DISEASE OF [place] CORONARY 04/26/2016 YAHIR SALES DOLINE S Ot I47.1 SUPRAVENTRICULAR TACHYCARDIA 04/26/2016 MÓNICA ESCALERA CHRISTIAN S Ot J18.9 PNEUMONIA, UNSPECIFIED ORGANISM 04/26/2016 CHRISTIAN SALES DO S Ot J44.0 CHRONIC OBSTRUCTIVE PULMON DISEASE W ACU 04/26/2016 MÓNICA ESCALERA CHRISTIAN S Ot J96.00 ACUTE RESPIRATORY FAILURE, UNSP W HYPOXI 04/26/2016 CHRISTIAN SALES DO S Ot K21.9 GASTRO-ESOPHAGEAL REFLUX DISEASE WITHOUT 04/26/2016 YAHIR SALES DOLINE S Ot Z68.36 BODY MASS INDEX (BMI) 36.0-36.9, ADULT 04/26/2016 CHRISTIAN SALES DO S Ot Z87.891 PERSONAL HISTORY OF NICOTINE DEPENDENCE 04/27/2016 MÓNICA ESCALERA CHRISTIAN S Ot A41.9 SEPSIS, UNSPECIFIED ORGANISM 04/27/2016 MÓNICA ESCALERA CHRISTIAN S Ot C34.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 NEOPLASM OF LOWER LOBE, LEFT B 04/27/2016 MÓNICA ESCALERA CHRISTIAN S Ot D50.9 IRON DEFICIENCY ANEMIA, UNSPECIFIED 04/27/2016 MÓNICA ESCALERA CHRISTIAN S Ot E11.65 TYPE 2 DIABETES MELLITUS WITH HYPERGLYCE 04/27/2016 MÓNICA ESCALERA CHRISTIAN S Ot E66.01 MORBID (SEVERE) OBESITY DUE TO EXCESS CA 04/27/2016 MÓNICA ESCALERA CHRISTIAN S Ot F32.9 MAJOR DEPRESSIVE DISORDER, SINGLE EPISOD 04/27/2016 MÓNICA ESCALERA CHRISTIAN S Ot F41.9 ANXIETY DISORDER, UNSPECIFIED 04/27/2016 MÓNICA ESCALERA CHRISTIAN S Ot I25.10 ATHSCL HEART DISEASE OF [place] CORONARY 04/27/2016 MÓNICA ESCALERA CHRISTIAN Buck Ot I47.1 SUPRAVENTRICULAR TACHYCARDIA 04/27/2016 MÓNICA ESCALERA CHRISTIAN S Ot J18.9 PNEUMONIA, UNSPECIFIED ORGANISM 04/27/2016 MÓNICA ESCALERA CHRISTIAN S Ot J44.0 CHRONIC OBSTRUCTIVE PULMON DISEASE W ACU 04/27/2016 MÓNICA ESCALERA CHRISTIAN S Ot J96.00 ACUTE RESPIRATORY FAILURE, UNSP W HYPOXI 04/27/2016 YAHIR SALES DOLINE S Ot K21.9 GASTRO-ESOPHAGEAL REFLUX DISEASE WITHOUT 04/27/2016 HOLLIENDER CHRISTIAN S Ot Z68.36 BODY MASS INDEX (BMI) 36.0-36.9, ADULT 04/27/2016 MÓNICA ESCALERA CHRISTIAN S Ot Z87.891 PERSONAL HISTORY OF NICOTINE DEPENDENCE 04/27/2016 MÓNICA ESCALERA CHRISTIAN S Ot A41.9 SEPSIS, UNSPECIFIED ORGANISM 04/27/2016 HOLLIENDER , CHRISTIAN S Ot C34.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 NEOPLASM OF LOWER LOBE, LEFT B 04/27/2016 MÓNICA ESCALERA CHRISTIAN S Ot D50.9 IRON DEFICIENCY ANEMIA, UNSPECIFIED 04/27/2016 HOLLIEKEVIN ESCALERA CHRISTIAN S Ot E11.65 TYPE 2 DIABETES MELLITUS WITH HYPERGLYCE 04/27/2016 HOLLIEKEVIN ESCALERA CHRISTIAN S Ot E66.01 MORBID (SEVERE) OBESITY DUE TO EXCESS CA 04/27/2016 MÓNICA ESCALERA CHRISTIAN S Ot E83.42 HYPOMAGNESEMIA 04/27/2016 HOLLIEKEVIN ESCALERA CHRISTIAN S Ot F32.9 MAJOR DEPRESSIVE DISORDER, SINGLE EPISOD 04/27/2016 MÓNICA ESCALERA CHRISTIAN S Ot F41.9 ANXIETY DISORDER, UNSPECIFIED 04/27/2016 HOLLIEKEVIN ESCALERA CHRISTIAN S Ot I10 ESSENTIAL (PRIMARY) HYPERTENSION 04/27/2016 TANYACHANDNI ESCALERA CHRISTIAN S Ot I25.10 ATHSCL HEART DISEASE OF [place] CORONARY 04/27/2016 HOLLIEKEVIN ESCALERA CHRISITAN S Ot I47.1 SUPRAVENTRICULAR TACHYCARDIA 04/27/2016 HOLLIEKEVIN DO CHRISTIAN S Ot J18.9 PNEUMONIA, UNSPECIFIED ORGANISM 04/27/2016 HOLLIEKEVIN ESCALERA CHRISTIAN S Ot J44.0 CHRONIC OBSTRUCTIVE PULMON DISEASE W ACU 04/27/2016 HOLLIEKEVIN ESCALERA CHRISTIAN S Ot J96.00 ACUTE RESPIRATORY FAILURE, UNSP W HYPOXI 04/27/2016 HOLLIEKEVIN ESCALERA CHRISTIAN S Ot K21.9 GASTRO-ESOPHAGEAL REFLUX DISEASE WITHOUT 04/27/2016 HOLLIENDCHANDNI DO CHRISTIAN S Ot Z68.36 BODY MASS INDEX (BMI) 36.0-36.9, ADULT 04/27/2016 CHRISTIAN SALES DO Ot Z87.891 PERSONAL HISTORY OF NICOTINE DEPENDENCE 05/04/2016 AMRIK GASPAR MD, Ot 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 05/04/2016 AMRIK GASPAR MD, Ot 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 05/05/2016 AMRIK GASPAR MD, Ot 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 05/05/2016 AMRIK GASPAR MD, Ot 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 05/05/2016 AMRIK GASPAR MD, Ot 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 05/05/2016 AMRIK GASPAR MD, Ot 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 2016 AMRIK GASPAR MD, Ot C34.12 MALIGNANT NEOPLASM OF UPPER LOBE, LEFT B 2016 AMRIK GASPAR MD Ot E11.9 TYPE 2 DIABETES MELLITUS WITHOUT COMPLIC 2016 AMRIK GASPAR MD, Ot I25.10 ATHSCL HEART DISEASE OF [place] CORONARY 2016 AMRIK GASPAR MD, Ot Z79.899 OTHER SPECIAL PROJECTS MANAGER (CURRENT) DRUG THERAPY 2016 AMRIK GASPAR MD, Ot 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 2016 AMRIK GASPAR MD, Ot 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 05/29/2016 AMRIK GASPAR MD, Ot C34.12 MALIGNANT NEOPLASM OF UPPER LOBE, LEFT B 05/29/2016 AMRIK GASPAR MD Ot E11.9 TYPE 2 DIABETES MELLITUS WITHOUT COMPLIC 05/29/2016 AMRIK GASPAR MD Ot I25.10 ATHSCL HEART DISEASE OF [place] CORONARY 05/29/2016 AMRIK GASPAR MD, Ot Z79.899 OTHER SPECIAL PROJECTS MANAGER (CURRENT) DRUG THERAPY 05/30/2016 AMRIK GASPAR MD, Ot C34.12 MALIGNANT NEOPLASM OF UPPER LOBE, LEFT B 05/30/2016 AMRIK GASPAR MD Ot E11.9 TYPE 2 DIABETES MELLITUS WITHOUT COMPLIC 05/30/2016 AMRIK GASPAR MD, Ot I25.10 ATHSCL HEART DISEASE OF [place] CORONARY 05/30/2016 AMRIK GASPAR MD, Ot Z79.899 OTHER SPECIAL PROJECTS MANAGER (CURRENT) DRUG THERAPY 05/31/2016 AMRIK GASPAR MD, Ot C34.12 MALIGNANT NEOPLASM OF UPPER LOBE, LEFT B 05/31/2016 AMRIK GASPAR MD Ot E11.9 TYPE 2 DIABETES MELLITUS WITHOUT COMPLIC 05/31/2016 AMRIK GASPAR MD Ot I25.10 ATHSCL HEART DISEASE OF [place] CORONARY 05/31/2016 AMRIK GASPAR MD Ot Z79.899 OTHER SPECIAL PROJECTS MANAGER (CURRENT) DRUG THERAPY 06/13/2016 AMRIK GASPAR MD Ot C34.12 MALIGNANT NEOPLASM OF UPPER LOBE, LEFT B 06/13/2016 AMRIK GASPAR MD Ot E11.9 TYPE 2 DIABETES MELLITUS WITHOUT COMPLIC 06/13/2016 AMRIK GASPAR MD Ot I25.10 ATHSCL HEART DISEASE OF [place] CORONARY 06/13/2016 AMRIK GASPAR MD Ot Z51.11 ENCOUNTER FOR ANTINEOPLASTIC CHEMOTHERAP 06/13/2016 AMRIK GASPAR MD Ot Z79.899 OTHER SNF (CURRENT) DRUG THERAPY 06/22/2016 AMRIK GASPAR MD Ot C34.12 MALIGNANT NEOPLASM OF UPPER LOBE, LEFT B 06/22/2016 AMRIK GASPAR MD Ot E11.9 TYPE 2 DIABETES MELLITUS WITHOUT COMPLIC 06/22/2016 AMRIK GASPAR MD Ot I25.10 ATHSCL HEART DISEASE OF [place] CORONARY 06/22/2016 AMRIK GASPAR MD Ot Z51.11 ENCOUNTER FOR ANTINEOPLASTIC CHEMOTHERAP 06/22/2016 AMRIK GASPAR MD Ot Z79.899 OTHER SNF (CURRENT) DRUG THERAPY 07/17/2016 AMRIK GASPAR MD Ot 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 07/17/2016 AMRIK GASPAR MD Ot R93.8 ABNORMAL FINDINGS ON DIAGNOSTIC IMAGING 07/20/2016 NANCY BIGGS MD Ot 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 07/20/2016 NANCY BIGGS MD Z Ot R93.7 ABNORMAL FINDINGS ON DIAGNOSTIC IMAGING 07/20/2016 NANCY BIGGS MD Z Ot Z01.818 ENCOUNTER FOR OTHER PREPROCEDURAL EXAMIN 07/20/2016 NANCY BIGGS MD Z Ot 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 07/20/2016 NANCY BIGGS MD Z Ot R93.7 ABNORMAL FINDINGS ON DIAGNOSTIC IMAGING 07/20/2016 NANCY BIGGS MD Z Ot Z01.818 ENCOUNTER FOR OTHER PREPROCEDURAL EXAMIN 07/26/2016 NANCY BIGGS MD Ot 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 07/26/2016 NANCY BIGGS MD Ot E11.9 TYPE 2 DIABETES MELLITUS WITHOUT COMPLIC 07/26/2016 NANCY BIGGS MD Ot Z79.899 OTHER SPECIAL PROJECTS MANAGER (CURRENT) DRUG THERAPY 07/26/2016 AMRIK GASPAR MD Ot 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 07/27/2016 NANCY BIGGS MD Ot 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 07/27/2016 NANCY BIGGS MD Ot E11.9 TYPE 2 DIABETES MELLITUS WITHOUT COMPLIC 07/27/2016 NANCY BIGGS MD, Ot Z79.899 OTHER SPECIAL PROJECTS MANAGER (CURRENT) DRUG THERAPY 07/31/2016 AMRIK GASPAR MD Ot 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 07/31/2016 AMRIK GASPAR MD Ot R93.8 ABNORMAL FINDINGS ON DIAGNOSTIC IMAGING 08/02/2016 NANCY BIGGS MD Ot 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 08/02/2016 NANCY BIGGS MD Ot E11.9 TYPE 2 DIABETES MELLITUS WITHOUT COMPLIC 08/02/2016 NANCY BIGGS MD Ot Z79.899 OTHER SPECIAL PROJECTS MANAGER (CURRENT) DRUG THERAPY 08/02/2016 AMRIK GASPAR MD Ot C34.12 MALIGNANT NEOPLASM OF UPPER LOBE, LEFT B 08/02/2016 AMRIK GASPAR MD Ot E11.9 TYPE 2 DIABETES MELLITUS WITHOUT COMPLIC 08/02/2016 AMRIK GASPAR MD Ot I25.10 ATHSCL HEART DISEASE OF [place] CORONARY 08/02/2016 AMRIK GASPAR MD Ot Z51.11 ENCOUNTER FOR ANTINEOPLASTIC CHEMOTHERAP 08/02/2016 AMRIK GASPAR MD Ot Z79.899 OTHER SNF (CURRENT) DRUG THERAPY Procedures Code Description Performed By Performed On 38.93 VENOUS CATHETERIZATION NEC 04/08/2011 38.93 VENOUS CATHETERIZATION NEC 04/21/2011 37.22 LEFT HEART CARDIAC CATH 04/23/2011 88.53 LT HEART ANGIOCARDIOGRAM 04/23/2011 88.56 CORONAR ARTERIOGR-2 CATH 04/23/2011 38.93 VENOUS CATHETERIZATION NEC 05/08/2011 79.35 OPEN REDUC-INT FIX FEMUR 12/08/2013 [id number] MEASURE OF CARDIAC SAMPL PRESSURE, L H 10/19/2015 [id number] FLUOROSCOPY OF MULTIPLE CORONARY ARTERIE 10/19/2015 Results Test Result Range Complete blood count (CBC) with automated white blood cell (WBC) differential - 02/01/16 08:00 Blood leukocytes automated count (number/volume) 9.6 10*3/ uL 4.3-11.0 Blood erythrocytes automated count (number/volume) 3.33 10*6 /uL 4.35-5.85 Venous blood hemoglobin measurement (mass/volume) 9.5 g/dL 11.5-16.0 Blood hematocrit (volume fraction) 30 % 35-52 Automated erythrocyte mean corpuscular volume 91 [foz_us] 80-99 Automated erythrocyte mean corpuscular hemoglobin (mass per erythrocyte) 29 pg 25-34 Automated erythrocyte mean corpuscular hemoglobin concentration measurement ( mass/volume) 31 g/dL 32-36 Automated erythrocyte distribution width ratio 16.4 % 10.0-14.5 Automated blood platelet count (count/volume) 374 10*3/uL 130-400 Automated blood platelet mean volume measurement 10.2 [foz_ us] 7.4-10.4 Automated blood neutrophils/100 leukocytes 66 % 42-75 Automated blood lymphocytes/100 leukocytes 26 % 12-44 Blood monocytes/100 leukocytes 7 % 0-12 Automated blood eosinophils/100 leukocytes 1 % 0-10 Automated blood basophils/100 leukocytes 0 % 0-10 Blood neutrophils automated count (number/volume) 6.3 10*3 1.8-7.8 Blood lymphocytes automated count (number/volume) 2.5 10*3 1.0-4.0 Blood monocytes automated count (number/volume) 0.7 10*3 0.0-1.0 Automated eosinophil count 0.1 10*3/uL 0.0-0.3 Automated blood basophil count (count/volume) 0.0 10*3/uL 0.0-0.1 PT panel in platelet poor plasma by coagulation assay - 02/01/16 08:00 Prothrombin time (PT) in platelet poor plasma by coagulation assay 13.0 s 12.2-14.7 INR in platelet poor plasma or blood by coagulation assay 1.0 0.8-1.4 Activated partial thromboplastin time (aPTT) in platelet poor plasma bycoagulation assay - 02/01/16 08:00 Activated partial thromboplastin time (aPTT) in platelet poor plasma bycoagulation assay 29 s 24-35 Methicillin resistant Staphylococcus aureus (MRSA) screening culture - 07:47 MRSA SCREEN RESULT MRSA ISOLATED NRG Capillary blood glucose measurement by glucometer (mass/volume) - 03/22/16 07: 48 Capillary blood glucose measurement by glucometer (mass/volume) 307 mg/dL 70-110 Capillary blood glucose measurement by glucometer (mass/volume) - 03/22/16 08: 56 Capillary blood glucose measurement by glucometer (mass/volume) 260 mg/dL 70-110 Complete blood count (CBC) with automated white blood cell (WBC) differential - 04/20/16 20:55 Blood leukocytes automated count (number/volume) 26.3 10*3/ uL 4.3-11.0 Blood erythrocytes automated count (number/volume) 3.22 10*6 /uL 4.35-5.85 Venous blood hemoglobin measurement (mass/volume) 8.6 g/dL 11.5-16.0 Blood hematocrit (volume fraction) 28 % 35-52 Automated erythrocyte mean corpuscular volume 88 [foz_us] 80-99 Automated erythrocyte mean corpuscular hemoglobin (mass per erythrocyte) 27 pg 25-34 Automated erythrocyte mean corpuscular hemoglobin concentration measurement ( mass/volume) 30 g/dL 32-36 Automated erythrocyte distribution width ratio 17.2 % 10.0-14.5 Automated blood platelet count (count/volume) 296 10*3/uL 130-400 Automated blood platelet mean volume measurement 11.3 [foz_ us] 7.4-10.4 Automated blood neutrophils/100 leukocytes 89 % 42-75 Automated blood lymphocytes/100 leukocytes 6 % 12-44 Blood monocytes/100 leukocytes 4 % 0-12 Automated blood eosinophils/100 leukocytes 0 % 0-10 Automated blood basophils/100 leukocytes 0 % 0-10 Blood neutrophils automated count (number/volume) 23.5 10*3 1.8-7.8 Blood lymphocytes automated count (number/volume) 1.7 10*3 1.0-4.0 Blood monocytes automated count (number/volume) 1.0 10*3 0.0-1.0 Automated eosinophil count 0.1 10*3/uL 0.0-0.3 Automated blood basophil count (count/volume) 0.0 10*3/uL 0.0-0.1 PT panel in platelet poor plasma by coagulation assay - 04/20/16 20:55 Prothrombin time (PT) in platelet poor plasma by coagulation assay 13.8 s 12.2-14.7 INR in platelet poor plasma or blood by coagulation assay 1.1 0.8-1.4 Activated partial thromboplastin time (aPTT) in platelet poor plasma bycoagulation assay - 04/20/16 20:55 Activated partial thromboplastin time (aPTT) in platelet poor plasma bycoagulation assay 29 s 24-35 Blood manual differential performed detection - 04/20/16 20:55 Blood monocytes/100 leukocytes 1 % NRG Manual blood segmented neutrophils/100 leukocytes 86 % NRG Blood band neutrophils/100 leukocytes 4 % NRG Manual blood lymphocytes/100 leukocytes 9 % NRG Manual eosinophils/100 leukocytes in nose 0 % NRG Manual blood basophils/100 leukocytes 0 % NRG Blood hypochromia detection by light microscopy SLIGHT NRG Blood stomatocytes detection by light microscopy SLIGHT NRG Blood lactic acid measurement (moles/volume) - 04/20/16 20:55 Blood lactic acid measurement (moles/volume) 2.2 mmol/L 0.5-2.0 Comprehensive metabolic panel - 04/20/16 20:55 Serum or plasma sodium measurement (moles/volume) 128 mmol/ L 135-145 Serum or plasma potassium measurement (moles/volume) 4.2 mmol/L 3.6-5.0 Serum or plasma chloride measurement (moles/volume) 90 mmol/ L 98-107 Carbon dioxide 25 mmol/L 21-32 Serum or plasma anion gap determination (moles/volume) 13 mmol/L 5-14 Serum or plasma urea nitrogen measurement (mass/volume) 26 mg/dL 7-18 Serum or plasma creatinine measurement (mass/volume) 1.22 mg /dL 0.60-1.30 Serum or plasma urea nitrogen/creatinine mass ratio 21 NRG Serum or plasma creatinine measurement with calculation of estimated glomerular filtration rate 44 NRG Serum or plasma glucose measurement (mass/volume) 313 mg/dL 70-105 Serum or plasma calcium measurement (mass/volume) 8.6 mg/dL 8.5-10.1 Serum or plasma total bilirubin measurement (mass/volume) 0.7 mg/dL 0.1-1.0 Serum or plasma alkaline phosphatase measurement (enzymatic activity/volume) 118 U/L 40-136 Serum or plasma aspartate aminotransferase measurement (enzymatic activity/ volume) 13 U/L 5-34 Serum or plasma alanine aminotransferase measurement (enzymatic activity/volume ) 10 U/L 0-55 Serum or plasma protein measurement (mass/volume) 7.1 g/dL 6.4-8.2 Serum or plasma albumin measurement (mass/volume) 3.3 g/dL 3.2-4.5 Serum or plasma C reactive protein measurement (mass/volume) - 04/20/16 20:55 Serum or plasma C reactive protein measurement (mass/volume) 10.93 mg/dL 0.00-0.50 Serum or plasma lithium measurement (moles/volume) - 04/20/16 20:55 BNP level 72.4 pg/mL <100.0 Bacterial blood culture - 04/20/16 20:55 Bacterial blood culture NG NRG Arterial blood gas measurement - 04/20/16 21:01 Blood pCO2 40 mm[Hg] 35-45 Blood pO2 84 mm[Hg] 79-93 Arterial blood bicarbonate measurement (moles/volume) 26 mmol/L 23-27 Arterial blood base excess by calculation 0.9 mmol/L -2.5-2.5 Arterial blood oxygen saturation measurement 97 % 94-100 * Inhaled oxygen flow rate 100% NRG Arterial blood pH measurement with patient temperature correction 7.43 7.37-7.43 Arterial blood carbon dioxide, total measurement (moles/volume) 27.0 mmol/L 21.0-31.0 Body site LT RAD NRG Assessment of wrist artery patency prior to arterial puncture YES-POS NRG Setting of ventilation mode NO NRG Measurement of body temperature 96.7 NRG Capillary blood glucose measurement by glucometer (mass/volume) - 04/20/16 21: 02 Capillary blood glucose measurement by glucometer (mass/volume) 317 mg/dL 70-110 Bacterial blood culture - 04/20/16 21:10 Bacterial blood culture NG NRG Complete urinalysis with reflex to culture - 04/20/16 22:04 Urine color determination YELLOW NRG Urine clarity determination CLEAR NRG Urine pH measurement by test strip 5 5- 9 Specific gravity of urine by test strip 1.015 1.016-1.022 Urine protein assay by test strip, semi-quantitative 2+ NEGATIVE Urine glucose detection by automated test strip 3+ NEGATIVE Erythrocytes detection in urine sediment by light microscopy NEGATIVE NEGATIVE Urine ketones detection by automated test strip 1+ NEGATIVE Urine nitrite detection by test strip NEGATIVE NEGATIVE Urine total bilirubin detection by test strip 1+ NEGATIVE Urine urobilinogen measurement by automated test strip (mass/volume) NORMAL NORMAL Urine leukocyte esterase detection by dipstick 1+ NEGATIVE Automated urine sediment erythrocyte count by microscopy (number/high power field) NONE NRG Automated urine sediment leukocyte count by microscopy (number/high power field ) [HPF] NRG Bacteria detection in urine sediment by light microscopy TRACE NRG Squamous epithelial cells detection in urine sediment by light microscopy 2-5 NRG Crystals detection in urine sediment by light microscopy NONE NRG Casts detection in urine sediment by light microscopy PRESENT NRG Mucus detection in urine sediment by light microscopy SMALL NRG Complete urinalysis with reflex to culture NO NRG Hyaline casts detection in urine sediment by light microscopy 10-25 NRG Methicillin resistant Staphylococcus aureus (MRSA) screening culture - 23:20 Methicillin resistant Staphylococcus aureus (MRSA) screening culture NEG NRG Serum or plasma lactate measurement (moles/volume) - 04/20/16 23:35 Serum or plasma lactate measurement (moles/volume) 1.5 mmol/ L 0.5-2.0 Capillary blood glucose measurement by glucometer (mass/volume) - 04/21/16 00: 05 Capillary blood glucose measurement by glucometer (mass/volume) 345 mg/dL 70-110 Complete blood count (CBC) with automated white blood cell (WBC) differential - 04/21/16 04:50 Blood leukocytes automated count (number/volume) 24.6 10*3/ uL 4.3-11.0 Blood erythrocytes automated count (number/volume) 3.03 10*6 /uL 4.35-5.85 Venous blood hemoglobin measurement (mass/volume) 8.2 g/dL 11.5-16.0 Blood hematocrit (volume fraction) 27 % 35-52 Automated erythrocyte mean corpuscular volume 88 [foz_us] 80-99 Automated erythrocyte mean corpuscular hemoglobin (mass per erythrocyte) 27 pg 25-34 Automated erythrocyte mean corpuscular hemoglobin concentration measurement ( mass/volume) 31 g/dL 32-36 Automated erythrocyte distribution width ratio 16.9 % 10.0-14.5 Automated blood platelet count (count/volume) 311 10*3/uL 130-400 Automated blood platelet mean volume measurement 11.4 [foz_ us] 7.4-10.4 Automated blood neutrophils/100 leukocytes 91 % 42-75 Automated blood lymphocytes/100 leukocytes 6 % 12-44 Blood monocytes/100 leukocytes 3 % 0-12 Automated blood eosinophils/100 leukocytes 0 % 0-10 Automated blood basophils/100 leukocytes 0 % 0-10 Blood neutrophils automated count (number/volume) 22.4 10*3 1.8-7.8 Blood lymphocytes automated count (number/volume) 1.5 10*3 1.0-4.0 Blood monocytes automated count (number/volume) 0.7 10*3 0.0-1.0 Automated eosinophil count 0.0 10*3/uL 0.0-0.3 Automated blood basophil count (count/volume) 0.0 10*3/uL 0.0-0.1 Comprehensive metabolic panel - 04/21/16 04:50 Serum or plasma sodium measurement (moles/volume) 132 mmol/ L 135-145 Serum or plasma potassium measurement (moles/volume) 4.3 mmol/L 3.6-5.0 Serum or plasma chloride measurement (moles/volume) 97 mmol/ L 98-107 Carbon dioxide 27 mmol/L 21-32 Serum or plasma anion gap determination (moles/volume) 8 mmol/L 5-14 Serum or plasma urea nitrogen measurement (mass/volume) 24 mg/dL 7-18 Serum or plasma creatinine measurement (mass/volume) 0.97 mg /dL 0.60-1.30 Serum or plasma urea nitrogen/creatinine mass ratio 25 NRG Serum or plasma creatinine measurement with calculation of estimated glomerular filtration rate 57 NRG Serum or plasma glucose measurement (mass/volume) 319 mg/dL 70-105 Serum or plasma calcium measurement (mass/volume) 8.4 mg/dL 8.5-10.1 Serum or plasma total bilirubin measurement (mass/volume) 0.6 mg/dL 0.1-1.0 Serum or plasma alkaline phosphatase measurement (enzymatic activity/volume) 113 U/L 40-136 Serum or plasma aspartate aminotransferase measurement (enzymatic activity/ volume) 12 U/L 5-34 Serum or plasma alanine aminotransferase measurement (enzymatic activity/volume ) 10 U/L 0-55 Serum or plasma protein measurement (mass/volume) 6.9 g/dL 6.4-8.2 Serum or plasma albumin measurement (mass/volume) 3.2 g/dL 3.2-4.5 Serum or plasma phosphate measurement (mass/volume) - 04/21/16 04:50 Serum or plasma phosphate measurement (mass/volume) 2.9 mg/ dL 2.3-4.7 Magnesium - 04/21/16 04:50 Magnesium 1.8 mg/dL 1.8-2.4 Capillary blood glucose measurement by glucometer (mass/volume) - 04/21/16 11: 33 Capillary blood glucose measurement by glucometer (mass/volume) 178 mg/dL 70-110 Capillary blood glucose measurement by glucometer (mass/volume) - 04/21/16 16: 59 Capillary blood glucose measurement by glucometer (mass/volume) 312 mg/dL 70-110 Capillary blood glucose measurement by glucometer (mass/volume) - 04/21/16 20: 08 Capillary blood glucose measurement by glucometer (mass/volume) 261 mg/dL 70-110 Capillary blood glucose measurement by glucometer (mass/volume) - 04/22/16 06: 01 Capillary blood glucose measurement by glucometer (mass/volume) 261 mg/dL 70-110 Complete blood count (CBC) with automated white blood cell (WBC) differential - 04/22/16 07:45 Blood leukocytes automated count (number/volume) 18.4 10*3/ uL 4.3-11.0 Blood erythrocytes automated count (number/volume) 3.25 10*6 /uL 4.35-5.85 Venous blood hemoglobin measurement (mass/volume) 8.6 g/dL 11.5-16.0 Blood hematocrit (volume fraction) 29 % 35-52 Automated erythrocyte mean corpuscular volume 90 [foz_us] 80-99 Automated erythrocyte mean corpuscular hemoglobin (mass per erythrocyte) 27 pg 25-34 Automated erythrocyte mean corpuscular hemoglobin concentration measurement ( mass/volume) 30 g/dL 32-36 Automated erythrocyte distribution width ratio 17.3 % 10.0-14.5 Automated blood platelet count (count/volume) 347 10*3/uL 130-400 Automated blood platelet mean volume measurement 11.0 [foz_ us] 7.4-10.4 Automated blood neutrophils/100 leukocytes 87 % 42-75 Automated blood lymphocytes/100 leukocytes 9 % 12-44 Blood monocytes/100 leukocytes 3 % 0-12 Automated blood eosinophils/100 leukocytes 0 % 0-10 Automated blood basophils/100 leukocytes 0 % 0-10 Blood neutrophils automated count (number/volume) 16.0 10*3 1.8-7.8 Blood lymphocytes automated count (number/volume) 1.7 10*3 1.0-4.0 Blood monocytes automated count (number/volume) 0.6 10*3 0.0-1.0 Automated eosinophil count 0.0 10*3/uL 0.0-0.3 Automated blood basophil count (count/volume) 0.0 10*3/uL 0.0-0.1 Comprehensive metabolic panel - 04/22/16 07:45 Serum or plasma sodium measurement (moles/volume) 134 mmol/ L 135-145 Serum or plasma potassium measurement (moles/volume) 4.5 mmol/L 3.6-5.0 Serum or plasma chloride measurement (moles/volume) 100 mmol /L 98-107 Carbon dioxide 22 mmol/L 21-32 Serum or plasma anion gap determination (moles/volume) 12 mmol/L 5-14 Serum or plasma urea nitrogen measurement (mass/volume) 13 mg/dL 7-18 Serum or plasma creatinine measurement (mass/volume) 0.79 mg /dL 0.60-1.30 Serum or plasma urea nitrogen/creatinine mass ratio 16 NRG Serum or plasma creatinine measurement with calculation of estimated glomerular filtration rate > NRG Serum or plasma glucose measurement (mass/volume) 284 mg/dL 70-105 Serum or plasma calcium measurement (mass/volume) 8.5 mg/dL 8.5-10.1 Serum or plasma total bilirubin measurement (mass/volume) 0.4 mg/dL 0.1-1.0 Serum or plasma alkaline phosphatase measurement (enzymatic activity/volume) 125 U/L 40-136 Serum or plasma aspartate aminotransferase measurement (enzymatic activity/ volume) 10 U/L 5-34 Serum or plasma alanine aminotransferase measurement (enzymatic activity/volume ) 10 U/L 0-55 Serum or plasma protein measurement (mass/volume) 6.7 g/dL 6.4-8.2 Serum or plasma albumin measurement (mass/volume) 3.0 g/dL 3.2-4.5 Serum or plasma phosphate measurement (mass/volume) - 04/22/16 07:45 Serum or plasma phosphate measurement (mass/volume) 1.8 mg/ dL 2.3-4.7 Magnesium - 04/22/16 07:45 Magnesium 1.5 mg/dL 1.8-2.4 Vancomycin trough - 04/22/16 07:45 Vancomycin trough 14.8 ug/mL 10.0-20.0 Capillary blood glucose measurement by glucometer (mass/volume) - 04/22/16 12: 32 Capillary blood glucose measurement by glucometer (mass/volume) 242 mg/dL 70-110 Capillary blood glucose measurement by glucometer (mass/volume) - 04/22/16 14: 45 Capillary blood glucose measurement by glucometer (mass/volume) 257 mg/dL 70-110 Capillary blood glucose measurement by glucometer (mass/volume) - 04/22/16 16: 17 Capillary blood glucose measurement by glucometer (mass/volume) 213 mg/dL 70-110 Capillary blood glucose measurement by glucometer (mass/volume) - 04/22/16 20: 18 Capillary blood glucose measurement by glucometer (mass/volume) 145 mg/dL 70-110 Capillary blood glucose measurement by glucometer (mass/volume) - 04/23/16 05: 12 Capillary blood glucose measurement by glucometer (mass/volume) 233 mg/dL 70-110 Complete blood count (CBC) with automated white blood cell (WBC) differential - 04/23/16 05:14 Blood leukocytes automated count (number/volume) 16.2 10*3/ uL 4.3-11.0 Blood erythrocytes automated count (number/volume) 3.12 10*6 /uL 4.35-5.85 Venous blood hemoglobin measurement (mass/volume) 8.2 g/dL 11.5-16.0 Blood hematocrit (volume fraction) 28 % 35-52 Automated erythrocyte mean corpuscular volume 89 [foz_us] 80-99 Automated erythrocyte mean corpuscular hemoglobin (mass per erythrocyte) 26 pg 25-34 Automated erythrocyte mean corpuscular hemoglobin concentration measurement ( mass/volume) 29 g/dL 32-36 Automated erythrocyte distribution width ratio 17.0 % 10.0-14.5 Automated blood platelet count (count/volume) 361 10*3/uL 130-400 Automated blood platelet mean volume measurement 11.2 [foz_ us] 7.4-10.4 Automated blood neutrophils/100 leukocytes 86 % 42-75 Automated blood lymphocytes/100 leukocytes 8 % 12-44 Blood monocytes/100 leukocytes 6 % 0-12 Automated blood eosinophils/100 leukocytes 1 % 0-10 Automated blood basophils/100 leukocytes 0 % 0-10 Blood neutrophils automated count (number/volume) 14.0 10*3 1.8-7.8 Blood lymphocytes automated count (number/volume) 1.3 10*3 1.0-4.0 Blood monocytes automated count (number/volume) 0.9 10*3 0.0-1.0 Automated eosinophil count 0.1 10*3/uL 0.0-0.3 Automated blood basophil count (count/volume) 0.0 10*3/uL 0.0-0.1 Comprehensive metabolic panel - 04/23/16 05:14 Serum or plasma sodium measurement (moles/volume) 135 mmol/ L 135-145 Serum or plasma potassium measurement (moles/volume) 4.7 mmol/L 3.6-5.0 Serum or plasma chloride measurement (moles/volume) 100 mmol /L 98-107 Carbon dioxide 24 mmol/L 21-32 Serum or plasma anion gap determination (moles/volume) 11 mmol/L 5-14 Serum or plasma urea nitrogen measurement (mass/volume) 11 mg/dL 7-18 Serum or plasma creatinine measurement (mass/volume) 0.72 mg /dL 0.60-1.30 Serum or plasma urea nitrogen/creatinine mass ratio 15 NRG Serum or plasma creatinine measurement with calculation of estimated glomerular filtration rate > NRG Serum or plasma glucose measurement (mass/volume) 227 mg/dL 70-105 Serum or plasma calcium measurement (mass/volume) 8.9 mg/dL 8.5-10.1 Serum or plasma total bilirubin measurement (mass/volume) 0.3 mg/dL 0.1-1.0 Serum or plasma alkaline phosphatase measurement (enzymatic activity/volume) 128 U/L 40-136 Serum or plasma aspartate aminotransferase measurement (enzymatic activity/ volume) 14 U/L 5-34 Serum or plasma alanine aminotransferase measurement (enzymatic activity/volume ) 10 U/L 0-55 Serum or plasma protein measurement (mass/volume) 7.0 g/dL 6.4-8.2 Serum or plasma albumin measurement (mass/volume) 3.0 g/dL 3.2-4.5 Serum or plasma phosphate measurement (mass/volume) - 04/23/16 05:14 Serum or plasma phosphate measurement (mass/volume) 2.3 mg/ dL 2.3-4.7 Magnesium - 04/23/16 05:14 Magnesium 1.7 mg/dL 1.8-2.4 Capillary blood glucose measurement by glucometer (mass/volume) - 04/23/16 11: 06 Capillary blood glucose measurement by glucometer (mass/volume) 261 mg/dL 70-110 Capillary blood glucose measurement by glucometer (mass/volume) - 04/23/16 16: 23 Capillary blood glucose measurement by glucometer (mass/volume) 275 mg/dL 70-110 Capillary blood glucose measurement by glucometer (mass/volume) - 04/23/16 20: 46 Capillary blood glucose measurement by glucometer (mass/volume) 190 mg/dL 70-110 Capillary blood glucose measurement by glucometer (mass/volume) - 04/24/16 05: 11 Capillary blood glucose measurement by glucometer (mass/volume) 168 mg/dL 70-110 Complete blood count (CBC) with automated white blood cell (WBC) differential - 04/24/16 05:40 Blood leukocytes automated count (number/volume) 14.6 10*3/ uL 4.3-11.0 Blood erythrocytes automated count (number/volume) 3.05 10*6 /uL 4.35-5.85 Venous blood hemoglobin measurement (mass/volume) 8.1 g/dL 11.5-16.0 Blood hematocrit (volume fraction) 27 % 35-52 Automated erythrocyte mean corpuscular volume 89 [foz_us] 80-99 Automated erythrocyte mean corpuscular hemoglobin (mass per erythrocyte) 27 pg 25-34 Automated erythrocyte mean corpuscular hemoglobin concentration measurement ( mass/volume) 30 g/dL 32-36 Automated erythrocyte distribution width ratio 16.7 % 10.0-14.5 Automated blood platelet count (count/volume) 354 10*3/uL 130-400 Automated blood platelet mean volume measurement 10.5 [foz_ us] 7.4-10.4 Automated blood neutrophils/100 leukocytes 82 % 42-75 Automated blood lymphocytes/100 leukocytes 12 % 12-44 Blood monocytes/100 leukocytes 5 % 0-12 Automated blood eosinophils/100 leukocytes 0 % 0-10 Automated blood basophils/100 leukocytes 0 % 0-10 Blood neutrophils automated count (number/volume) 12.0 10*3 1.8-7.8 Blood lymphocytes automated count (number/volume) 1.7 10*3 1.0-4.0 Blood monocytes automated count (number/volume) 0.8 10*3 0.0-1.0 Automated eosinophil count 0.1 10*3/uL 0.0-0.3 Automated blood basophil count (count/volume) 0.0 10*3/uL 0.0-0.1 Comprehensive metabolic panel - 04/24/16 05:40 Serum or plasma sodium measurement (moles/volume) 138 mmol/ L 135-145 Serum or plasma potassium measurement (moles/volume) 4.4 mmol/L 3.6-5.0 Serum or plasma chloride measurement (moles/volume) 102 mmol /L 98-107 Carbon dioxide 26 mmol/L 21-32 Serum or plasma anion gap determination (moles/volume) 10 mmol/L 5-14 Serum or plasma urea nitrogen measurement (mass/volume) 12 mg/dL 7-18 Serum or plasma creatinine measurement (mass/volume) 0.74 mg /dL 0.60-1.30 Serum or plasma urea nitrogen/creatinine mass ratio 16 NRG Serum or plasma creatinine measurement with calculation of estimated glomerular filtration rate > NRG Serum or plasma glucose measurement (mass/volume) 160 mg/dL 70-105 Serum or plasma calcium measurement (mass/volume) 8.8 mg/dL 8.5-10.1 Serum or plasma total bilirubin measurement (mass/volume) 0.3 mg/dL 0.1-1.0 Serum or plasma alkaline phosphatase measurement (enzymatic activity/volume) 131 U/L 40-136 Serum or plasma aspartate aminotransferase measurement (enzymatic activity/ volume) 14 U/L 5-34 Serum or plasma alanine aminotransferase measurement (enzymatic activity/volume ) 12 U/L 0-55 Serum or plasma protein measurement (mass/volume) 6.6 g/dL 6.4-8.2 Serum or plasma albumin measurement (mass/volume) 2.9 g/dL 3.2-4.5 Serum or plasma phosphate measurement (mass/volume) - 04/24/16 05:40 Serum or plasma phosphate measurement (mass/volume) 2.5 mg/ dL 2.3-4.7 Magnesium - 04/24/16 05:40 Magnesium 1.8 mg/dL 1.8-2.4 Capillary blood glucose measurement by glucometer (mass/volume) - 04/24/16 11: 06 Capillary blood glucose measurement by glucometer (mass/volume) 297 mg/dL 70-110 Capillary blood glucose measurement by glucometer (mass/volume) - 04/24/16 16: 27 Capillary blood glucose measurement by glucometer (mass/volume) 131 mg/dL 70-110 Capillary blood glucose measurement by glucometer (mass/volume) - 04/24/16 21: 11 Capillary blood glucose measurement by glucometer (mass/volume) 145 mg/dL 70-110 Complete blood count (CBC) with automated white blood cell (WBC) differential - 04/25/16 05:45 Blood leukocytes automated count (number/volume) 10.0 10*3/ uL 4.3-11.0 Blood erythrocytes automated count (number/volume) 2.98 10*6 /uL 4.35-5.85 Venous blood hemoglobin measurement (mass/volume) 7.9 g/dL 11.5-16.0 Blood hematocrit (volume fraction) 26 % 35-52 Automated erythrocyte mean corpuscular volume 88 [foz_us] 80-99 Automated erythrocyte mean corpuscular hemoglobin (mass per erythrocyte) 27 pg 25-34 Automated erythrocyte mean corpuscular hemoglobin concentration measurement ( mass/volume) 30 g/dL 32-36 Automated erythrocyte distribution width ratio 16.7 % 10.0-14.5 Automated blood platelet count (count/volume) 364 10*3/uL 130-400 Automated blood platelet mean volume measurement 10.5 [foz_ us] 7.4-10.4 Automated blood neutrophils/100 leukocytes 77 % 42-75 Automated blood lymphocytes/100 leukocytes 16 % 12-44 Blood monocytes/100 leukocytes 6 % 0-12 Automated blood eosinophils/100 leukocytes 1 % 0-10 Automated blood basophils/100 leukocytes 0 % 0-10 Blood neutrophils automated count (number/volume) 7.7 10*3 1.8-7.8 Blood lymphocytes automated count (number/volume) 1.6 10*3 1.0-4.0 Blood monocytes automated count (number/volume) 0.6 10*3 0.0-1.0 Automated eosinophil count 0.1 10*3/uL 0.0-0.3 Automated blood basophil count (count/volume) 0.0 10*3/uL 0.0-0.1 Comprehensive metabolic panel - 04/25/16 05:45 Serum or plasma sodium measurement (moles/volume) 138 mmol/ L 135-145 Serum or plasma potassium measurement (moles/volume) 4.7 mmol/L 3.6-5.0 Serum or plasma chloride measurement (moles/volume) 101 mmol /L 98-107 Carbon dioxide 28 mmol/L 21-32 Serum or plasma anion gap determination (moles/volume) 9 mmol/L 5-14 Serum or plasma urea nitrogen measurement (mass/volume) 14 mg/dL 7-18 Serum or plasma creatinine measurement (mass/volume) 0.77 mg /dL 0.60-1.30 Serum or plasma urea nitrogen/creatinine mass ratio 18 NRG Serum or plasma creatinine measurement with calculation of estimated glomerular filtration rate > NRG Serum or plasma glucose measurement (mass/volume) 148 mg/dL 70-105 Serum or plasma calcium measurement (mass/volume) 9.2 mg/dL 8.5-10.1 Serum or plasma total bilirubin measurement (mass/volume) 0.3 mg/dL 0.1-1.0 Serum or plasma alkaline phosphatase measurement (enzymatic activity/volume) 120 U/L 40-136 Serum or plasma aspartate aminotransferase measurement (enzymatic activity/ volume) 13 U/L 5-34 Serum or plasma alanine aminotransferase measurement (enzymatic activity/volume ) 12 U/L 0-55 Serum or plasma protein measurement (mass/volume) 6.6 g/dL 6.4-8.2 Serum or plasma albumin measurement (mass/volume) 2.9 g/dL 3.2-4.5 Magnesium - 04/25/16 05:45 Magnesium 1.7 mg/dL 1.8-2.4 Capillary blood glucose measurement by glucometer (mass/volume) - 04/25/16 05: 48 Capillary blood glucose measurement by glucometer (mass/volume) 150 mg/dL 70-110 Capillary blood glucose measurement by glucometer (mass/volume) - 04/25/16 10: 43 Capillary blood glucose measurement by glucometer (mass/volume) 117 mg/dL 70-110 Capillary blood glucose measurement by glucometer (mass/volume) - 04/25/16 15: 32 Capillary blood glucose measurement by glucometer (mass/volume) 111 mg/dL 70-110 Capillary blood glucose measurement by glucometer (mass/volume) - 04/25/16 21: 04 Capillary blood glucose measurement by glucometer (mass/volume) 233 mg/dL 70-110 Complete blood count (CBC) with automated white blood cell (WBC) differential - 04/26/16 05:40 Blood leukocytes automated count (number/volume) 10.8 10*3/ uL 4.3-11.0 Blood erythrocytes automated count (number/volume) 3.00 10*6 /uL 4.35-5.85 Venous blood hemoglobin measurement (mass/volume) 7.9 g/dL 11.5-16.0 Blood hematocrit (volume fraction) 26 % 35-52 Automated erythrocyte mean corpuscular volume 88 [foz_us] 80-99 Automated erythrocyte mean corpuscular hemoglobin (mass per erythrocyte) 26 pg 25-34 Automated erythrocyte mean corpuscular hemoglobin concentration measurement ( mass/volume) 30 g/dL 32-36 Automated erythrocyte distribution width ratio 17.2 % 10.0-14.5 Automated blood platelet count (count/volume) 364 10*3/uL 130-400 Automated blood platelet mean volume measurement 10.5 [foz_ us] 7.4-10.4 Automated blood neutrophils/100 leukocytes 76 % 42-75 Automated blood lymphocytes/100 leukocytes 12 % 12-44 Blood monocytes/100 leukocytes 10 % 0-12 Automated blood eosinophils/100 leukocytes 2 % 0-10 Automated blood basophils/100 leukocytes 0 % 0-10 Blood neutrophils automated count (number/volume) 8.2 10*3 1.8-7.8 Blood lymphocytes automated count (number/volume) 1.3 10*3 1.0-4.0 Blood monocytes automated count (number/volume) 1.1 10*3 0.0-1.0 Automated eosinophil count 0.2 10*3/uL 0.0-0.3 Automated blood basophil count (count/volume) 0.0 10*3/uL 0.0-0.1 Capillary blood glucose measurement by glucometer (mass/volume) - 04/26/16 06: 06 Capillary blood glucose measurement by glucometer (mass/volume) 188 mg/dL 70-110 Capillary blood glucose measurement by glucometer (mass/volume) - 04/26/16 10: 27 Capillary blood glucose measurement by glucometer (mass/volume) 210 mg/dL 70-110 RED CELLS LEUKO REDUCED AS1 - 04/26/16 10:40 RED CELLS LEUKO REDUCED AS1 TRANSFUSED 1423 NRG Blood type T Indirect antibody screen panel - 04/26/16 10:40 ABO+Rh group OP NRG Transfusion band number [id number] NRG Blood group antibody screen NEGATIVE NRG Capillary blood glucose measurement by glucometer (mass/volume) - 04/26/16 15: 46 Capillary blood glucose measurement by glucometer (mass/volume) 190 mg/dL 70-110 Capillary blood glucose measurement by glucometer (mass/volume) - 04/26/16 20: 35 Capillary blood glucose measurement by glucometer (mass/volume) 195 mg/dL 70-110 Capillary blood glucose measurement by glucometer (mass/volume) - 04/27/16 04: 11 Capillary blood glucose measurement by glucometer (mass/volume) 158 mg/dL 70-110 Automated blood complete blood count (hemogram) panel - 04/27/16 04:30 Blood leukocytes automated count (number/volume) 10.5 10*3/ uL 4.3-11.0 Blood erythrocytes automated count (number/volume) 3.40 10*6 /uL 4.35-5.85 Venous blood hemoglobin measurement (mass/volume) 8.9 g/dL 11.5-16.0 Blood hematocrit (volume fraction) 30 % 35-52 Automated erythrocyte mean corpuscular volume 87 [foz_us] 80-99 Automated erythrocyte mean corpuscular hemoglobin (mass per erythrocyte) 26 pg 25-34 Automated erythrocyte mean corpuscular hemoglobin concentration measurement ( mass/volume) 30 g/dL 32-36 Automated erythrocyte distribution width ratio 16.7 % 10.0-14.5 Automated blood platelet count (count/volume) 364 10*3/uL 130-400 Automated blood platelet mean volume measurement 10.2 [foz_ us] 7.4-10.4 Capillary blood glucose measurement by glucometer (mass/volume) - 04/27/16 10: 43 Capillary blood glucose measurement by glucometer (mass/volume) 141 mg/dL 70-110 Bacterial urine culture - 06/20/16 12:00 Bacterial urine culture [id number] NRG COLONY COUNT >100,000/ML NRG FTX;REPORTABLE SENSITIVITY REPORTED 06/21/16 16:20 NRG URINE CULTURE RESULTS <10,000/ML NRG Bacterial susceptibility panel - 06/20/16 12:00 Gentamicin susceptibility test by minimum inhibitory concentration <= NRG Trimethoprim/sulfamethoxazole susceptibility test by minimum inhibitoryconcentration <= NRG Ampicillin susceptibility test by minimum inhibitory concentration 8 NRG Tobramycin susceptibility test by minimum inhibitory concentration <= NRG Cefazolin susceptibility test by minimum inhibitory concentration <= NRG Ceftriaxone susceptibility test by minimum inhibitory concentration <= NRG Ampicillin/sulbactam susceptibility test by minimum inhibitory concentration 4 NRG Piperacillin/tazobactam susceptibility test by minimum inhibitory concentration <= NRG Ciprofloxacin susceptibility test by minimum inhibitory concentration >= NRG Meropenem susceptibility test by minimum inhibitory concentration <= NRG Nitrofurantoin susceptibility test by minimum inhibitory concentration <= NRG Aztreonam susceptibility test by minimum inhibitory concentration <= NRG Extended spectrum beta lactamase (ESBL) producing bacteria susceptibility test by minimum inhibitory concentration - NRG Complete blood count (CBC) with automated white blood cell (WBC) differential - 07/26/16 09:09 Blood leukocytes automated count (number/volume) 15.2 10*3/ uL 4.3-11.0 Blood erythrocytes automated count (number/volume) 3.61 10*6 /uL 4.35-5.85 Venous blood hemoglobin measurement (mass/volume) 9.8 g/dL 11.5-16.0 Blood hematocrit (volume fraction) 32 % 35-52 Automated erythrocyte mean corpuscular volume 90 [foz_us] 80-99 Automated erythrocyte mean corpuscular hemoglobin (mass per erythrocyte) 27 pg 25-34 Automated erythrocyte mean corpuscular hemoglobin concentration measurement ( mass/volume) 30 g/dL 32-36 Automated erythrocyte distribution width ratio 18.3 % 10.0-14.5 Automated blood platelet count (count/volume) 433 10*3/uL 130-400 Automated blood platelet mean volume measurement 10.2 [foz_ us] 7.4-10.4 Automated blood neutrophils/100 leukocytes 70 % 42-75 Automated blood lymphocytes/100 leukocytes 22 % 12-44 Blood monocytes/100 leukocytes 7 % 0-12 Automated blood eosinophils/100 leukocytes 1 % 0-10 Automated blood basophils/100 leukocytes 0 % 0-10 Blood neutrophils automated count (number/volume) 10.7 10*3 1.8-7.8 Blood lymphocytes automated count (number/volume) 3.3 10*3 1.0-4.0 Blood monocytes automated count (number/volume) 1.0 10*3 0.0-1.0 Automated eosinophil count 0.1 10*3/uL 0.0-0.3 Automated blood basophil count (count/volume) 0.0 10*3/uL 0.0-0.1 PT panel in platelet poor plasma by coagulation assay - 07/26/16 09:09 Prothrombin time (PT) in platelet poor plasma by coagulation assay 12.8 s 12.2-14.7 INR in platelet poor plasma or blood by coagulation assay 1.0 0.8-1.4 Activated partial thromboplastin time (aPTT) in platelet poor plasma bycoagulation assay - 07/26/16 09:09 Activated partial thromboplastin time (aPTT) in platelet poor plasma bycoagulation assay 30 s 24-35 Blood manual differential performed detection - 07/26/16 09:09 Blood monocytes/100 leukocytes 6 % NRG Manual blood segmented neutrophils/100 leukocytes 69 % NRG Manual blood lymphocytes/100 leukocytes 21 % NRG Manual eosinophils/100 leukocytes in nose 1 % NRG Blood lymphocytes variant/100 leukocytes 3 % NRG Blood hypochromia detection by light microscopy MODERATE NRG Whole blood basic metabolic panel - 07/26/16 09:09 Serum or plasma sodium measurement (moles/volume) 141 mmol/ L 135-145 Serum or plasma potassium measurement (moles/volume) 4.5 mmol/L 3.6-5.0 Serum or plasma chloride measurement (moles/volume) 101 mmol /L 98-107 Carbon dioxide 29 mmol/L 21-32 Serum or plasma anion gap determination (moles/volume) 11 mmol/L 5-14 Serum or plasma urea nitrogen measurement (mass/volume) 28 mg/dL 7-18 Serum or plasma creatinine measurement (mass/volume) 0.97 mg /dL 0.60-1.30 Serum or plasma urea nitrogen/creatinine mass ratio 29 NRG Serum or plasma creatinine measurement with calculation of estimated glomerular filtration rate 57 NRG Serum or plasma glucose measurement (mass/volume) 179 mg/dL 70-105 Serum or plasma calcium measurement (mass/volume) 9.5 mg/dL 8.5-10.1 Methicillin resistant Staphylococcus aureus (MRSA) screening culture - 09:15 MRSA SCREEN RESULT MRSA ISOLATED NRG Capillary blood glucose measurement by glucometer (mass/volume) - 07/26/16 09: 50 Capillary blood glucose measurement by glucometer (mass/volume) 157 mg/dL 70-110 Encounters ACCT No. Visit Date/Time Discharge Status Pt. Type Provider Facility Loc./Unit Complaint [id number] 07/26/2016 08:43:00 2016 15:22:00 DIS Outpatient KALYAN COLE, NANCY Escalante [facility] ADENOCARCINOMA LEFT LUNG, ABNORMAL CT SPINE [id number] 07/19/2016 05:36:00 2016 16:03:00 DIS Outpatient NANCY BIGGS MD [facility] PREOP ABNORMAL SPINAL CT [id number] 05/09/2016 13:51:00 2016 00:01:00 DIS Outpatient AMRIK GASAPR MD [facility] ONC [id number] 04/20/2016 22:20:00 2015 14:03:00 DIS Inpatient CHRISTIAN SALES DO S [facility] 4TH LLL PNEUMONIA,SEVERE SEPSIS, UNCONTROLLED HYPERGLYC [id number] 03/22/2016 07:21:00 2015 12:45:00 DIS Outpatient RJ PEREZ MD [facility] LUNG CA, NONFUNCTION PORT [id number] 12/20/2015 13:11:00 2015 00:01:00 DIS Outpatient CHRISTIAN SALES DO S [facility] PULM COPD [id number] 03/14/2016 12:10:00 2015 14:14:00 DIS Outpatient RJ PEREZ MD [facility] PREOP LUNG CA, NONFUNCTION PORT [id number] 02/01/2016 07:03:00 2015 15:15:00 DIS Outpatient CHRISTIAN SALES DO S [facility] LUNG MASS [id number] 11/17/2015 12:24:00 2015 14:00:00 DIS Inpatient YAHIR SALES DOLINE S [facility] 4TH HYPOXIA, AMS [id number] 10/14/2015 13:34:00 2015 14:25:00 DIS Inpatient YAHIR SALES DOLINE S [facility] 4TH PNEUMONIA [id number] 10/01/2015 10:43:00 2015 16:45:00 DIS Outpatient ANA COLE, RJ Rangel [facility] ABNORMAL PET CT [id number] 07/06/2015 12:50:00 2015 00:01:00 DIS Outpatient CHRISTIAN SALES DO S [facility] POOR VENOUS ACCESS [id number] 08/25/2015 08:28:00 2015 16:10:00 DIS Outpatient YAHIR SALES DOLINE S [facility] 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 [id number] 08/02/2015 09:00:00 2015 12:15:00 DIS Outpatient RJ PEREZ MD [facility] BARRETTS ESOPHAGES [id number] 06/14/2015 20:54:00 2015 06:45:00 DIS Outpatient YAHIR SALES DOLINE S [facility] SLEEP JOSHUA,CHOKING [id number] 05/10/2015 12:50:00 2015 00:01:00 DIS Outpatient YAHIR SALES DOLINE S [facility] POOR VENOUS ACCESS [id number] 03/30/2015 12:54:00 2014 23:59:59 CLS Outpatient MAYKEL RIVER MD [facility] RAD CAD,CHF,CHEST PAIN,HTN, HYPERLIPIDEMIA [id number] 03/07/2015 13:06:00 2014 13:30:00 DIS Inpatient MONTY SALES DOQUELINE S [facility] 4TH LOWER LEFT LUNG PNEUMONIA WITH HYPOXIA [id number] 02/03/2015 11:36:00 2014 19:23:00 DIS Outpatient MAYKEL RIVER MD [facility] CATH ABNORMAL STRESS,CP,HTN,HLP [id number] 01/27/2015 07:47:00 2014 23:59:59 CLS Outpatient QUENTIN NGUYỄN [facility] [facility] CARD CAD,CHF,HTN,HYPERLIPIDEMIA [id number] 01/18/2015 12:43:00 2014 00:01:00 DIS Outpatient CHRISTIAN SALES DO Via [facility] POOR VENOUS ACCESS [id number] 01/20/2015 06:48:00 2014 23:59:59 CLS Outpatient QUENTIN NGUYỄN Via [facility] CARD CAD CHF HTN HLD [id number] 10/23/2014 13:22:00 2014 23:59:59 CLS Outpatient MAYKEL RIVER MD Via [facility] CARD CAD,CHF,CP,HTN,HLP [id number] 02/11/2014 15:44:00 2013 23:59:59 CLS Outpatient KARINE MUÑOZ MD [facility] RAD PELVIC PAIN, L.E PAIN [id number] 12/08/2013 09:05:00 2013 12:02:00 DIS Inpatient EFRA GRACIA MD [facility] SURGICAL RIGHT HIP FRACTURE [id number] 11/07/2012 12:49:00 2012 00:01:00 DIS Outpatient QUENTIN NGUYỄN [facility] CARD CP,CAD,CHF,PAT,HTN [id number] 11/21/2012 11:41:00 2012 23:59:59 CLS Outpatient PAVEL YOUNG MD [facility] RAD RECURRENT UTI [id number] 11/12/2012 11:14:00 2012 23:59:59 CLS Outpatient QUENTIN NGUYỄN [facility] RAD CP,CAD,CHF,PAT,HTN [id number] 08/02/2016 09:36:00 ACT Outpatient AMRIK GASPAR MD [facility] ONC [id number] 07/25/2016 09:30:00 PEN Preadmit KALYAN COLE, NANCY Escalante Via [facility] ABNORMAL SPINAL CT [id number] 07/14/2016 10:24:00 ACT Outpatient AMRIK GASPAR MD Via [facility] CARD ABNORMAL CT,ADENOCARCIOMA OF LEFT LUNG [id number] 07/04/2016 09:36:00 ACT Outpatient AMRIK GASPAR MD [facility] RAD ADENOCARCINOMA OF LEFT LUNG;STAGE 3 [id number] 05/04/2016 10:15:00 ACT Outpatient AMRIK GASPAR MD [facility] RAD LUNG MASS,CA OF ADRENAL GLAND,SECONDARY [id number] 03/20/2016 13:00:00 PEN Preadmit CHRISTIAN SALES DO [facility] PULM COPD [id number] 02/29/2016 10:47:00 ACT Outpatient AMRIK GASPAR MD [facility] CARD SCREENING [id number] 01/07/2016 09:35:00 ACT Outpatient EDE EDGAR DO [facility] RAD COPD,LUNG MASS [id number] 09/29/2015 05:54:00 ACT Outpatient RJ PEREZ MD [facility] PREOP ABNORMAL PET CT [id number] 09/28/2015 14:35:00 ACT Outpatient CHRISTIAN SALES DO [facility] RAD [id number] 09/07/2015 00:10:00 PEN Preadmit CHRISTIAN SALES DO S [facility] SDC POOR VENOUS ACCESS [id number] 08/10/2015 09:40:00 ACT Outpatient CHRISTIAN SALES DO S [facility] RAD BILATERAL PULMONARY NODULES [id number] 07/29/2015 05:34:00 Document Registration [id number] 07/20/2015 10:26:00 ACT Outpatient CHRISTIAN SALES DO [facility] RAD COUGH RT LUNG NODULE [id number] 04/13/2015 13:30:00 ACT Outpatient MARQUES VASQUEZ [facility] RAD FOLLOW UP PNEUMONIA [id number] 10/23/2014 13:24:00 Document Registration [id number] 10/23/2014 13:22:00 Document Registration [id number] 10/23/2014 13:22:00 Document Registration [id number] 10/23/2014 13:22:00 Document Registration [id number] 10/23/2014 13:22:00 Document Registration [id number] 10/23/2014 13:22:00 Document Registration [id number] 08/18/2014 13:14:00 Document Registration [id number] 06/29/2014 11:06:00 Document Registration [id number] 02/06/2013 13:00:00 Document Registration [id number] 07/04/2012 02:25:00 Document Registration [id number] 07/03/2012 07:16:00 Document Registration [id number] 06/24/2012 08:54:00 Document Registration [id number] 06/19/2012 07:15:00 Document Registration [id number] 06/10/2012 19:21:00 Document Registration [id number] 06/07/2012 11:50:00 Document Registration [id number] 03/19/2012 15:11:00 Document Registration [id number] 02/09/2012 09:44:00 Document Registration [id number] 12/21/2011 10:16:00 Document Registration [id number] 12/10/2011 02:34:00 Document Registration [id number] 10/28/2011 23:31:00 Document Registration [id number] 09/29/2011 11:08:00 Document Registration [id number] 09/22/2011 09:42:00 Document Registration [id number] 09/21/2011 09:47:00 Document Registration [id number] 09/14/2011 14:52:00 Document Registration [id number] 09/05/2011 09:18:00 Document Registration [id number] 08/15/2011 09:18:00 Document Registration [id number] 07/19/2011 12:44:00 Document Registration [id number] 05/26/2011 07:54:00 Document Registration [id number] 05/16/2011 14:21:00 Document Registration [id number] 05/08/2011 10:40:00 Document Registration [id number] 04/25/2011 17:14:00 Document Registration [id number] 04/18/2011 23:09:00 Document Registration [id number] 04/05/2011 20:05:00 Document Registration [id number] 04/04/2011 13:56:00 Document Registration [id number] 02/17/2011 13:12:00 Document Registration [id number] 01/06/2011 10:10:00 Document Registration [id number] 11/25/2010 10:02:00 Document Registration [id number] 09/29/2010 23:17:00 Document Registration [id number] 09/25/2010 23:45:00 Document Registration [id number] 09/02/2010 11:15:00 Document Registration [id number] 09/01/2010 03:00:00 Document Registration [id number] 08/23/2010 15:30:00 Document Registration [id number] 07/27/2010 09:14:00 Document Registration [id number] 06/26/2010 17:42:00 Document Registration [id number] 06/22/2010 12:54:00 Document Registration [id number] 06/07/2010 11:43:00 Document Registration [id number] 05/17/2010 08:45:00 Document Registration [id number] 12/08/2009 09:27:00 Document Registration [id number] 11/17/2009 10:53:00 Document Registration [id number] 10/20/2009 21:51:00 Document Registration [id number] 10/14/2009 08:31:00 Document Registration [id number] 10/05/2009 15:58:00 Document Registration [id number] 09/22/2009 14:21:00 Document Registration [id number] 08/18/2009 11:08:00 Document Registration [id number] 08/11/2009 11:05:00 Document Registration [id number] 07/01/2009 11:11:00 Document Registration [id number] 06/11/2009 20:34:00 Document Registration [id number] 08/23/2008 14:26:00 Document Registration
[2016-09-07] MEDS ORDERED: FLUC100T6 PO (09:00)
[2016-09-07] MEDS ORDERED: FENT1PAT9 TD (09:00)
[2016-09-07] MEDS ORDERED: LEVO500T2 PO (09:00)
== END 2016-07-26 15:22 | disposition home or self-care (01) ==
LOC: DELPENDDIS → SDC 08:43
DX: C34.82 Malignant neoplasm of overlapping sites of left bronchus and lung (principal); E11.9 Type 2 diabetes mellitus without complications; Z79.899 Other long term (current) drug therapy
CPT/HCPCS: 36415; 80048; 82962; 85007; 85027; 85610; 85730; 87081; 88307; 94640

== ENCOUNTER → 2016-08-14 | Outpatient (CLI) | payer MEDICAID ==
[~2016-08-14] MED LIST changes: +ARIP20TA9 PO; +DULO60CA58 PO; +FENT1PAT8 TD; +FENT1PAT9 TD; +FLUC100T6 PO; +GADOBUTROL 7.5 MMOL/7.5 ML (GADAVIST) VIAL IV ONE; +GUAI600T43 PO; +HYDR-3731 PO
--- NOTE | 2016-08-14 13:42 | Diagnostic Imaging Report ---
PROCEDURE: MR imaging of the brain with and without contrast. TECHNIQUE: Multiplanar, multisequence MR imaging of the brain was performed with and without contrast. INDICATION: Altered mental status. Lung cancer. Hallucinations. 6 mL of Gadovist is administered intravenously. FINDINGS: There is no diffusion restriction to suggest an acute infarct or other diffusion abnormality. There are periventricular and deep white matter T2 hyperintense signal abnormalities with no significant mass effect or post contrast enhancement suggestive of chronic microvascular ischemic changes. There is no enhancing mass. There is no hydrocephalus. No extra-axial fluid collection is seen. The central vascular flow voids appear grossly unremarkable. The pituitary gland is normal in size. No hypothalamic or pineal region mass. There is unremarkable appearance of the orbits and paranasal sinuses. The internal auditory canals and inner ear structures appear symmetric. IMPRESSION: No acute infarct or enhancing mass. Dictated by: Dictated on workstation # [id number]
== END ==
LOC: RAD 08:58
PROVIDERS: ATTEND Internal Medicine Hematology & Oncology
DX: R41.82 Altered mental status, unspecified (principal)
CPT/HCPCS: 70553

== ENCOUNTER 2016-08-23 08:42 | Outpatient (RCR) | payer MEDICAID ==
--- OUTSIDE RECORDS SUMMARY | 2016-05-30 10:05 | XMS REPORT | Continuity of Care Document ---
Author Author [facility] Organization [facility] Address Unknown Phone Unavailable Care Team Providers Care Vp Revenue Cycle Name Role Phone Concetta Brower PCP [phone] Source Comments Some departments are not documenting in the electronic medical record. If you do not see the information that you expected, contact Release of Information in the Health Information Management department at [phone] for further assistance in locating additional records.[facility] Active Allergies and Adverse Reactions Allergen Noted [...] Problems Problem Noted Date Adrenal mass, left ([facility]) 12/16/2015 Nocturnal hypoxemia 07/13/2015 Overview: PSG Via [...] situation and distance. Obstructive lung disease (generalized) ([facility]) 07/13/2015 Overview: Dwayne normal On a significant inhaler regimen that includes daliresp and singulair. I'm not sure if she doesn't have obstruction given her maximal inhaler therapy or if she has been misdiagnosed. Preop examination 07/12/2015 Overview: Dr. Mrorell Spinal stenosis L ast Assessment & Plan: [...]
[2016-05-30 10:49] LABS: BASOPHILS % (AUTO) 0 % (0-10); EOSINOPHILS # (AUTO) 0.1 10^3/uL (0.0-0.3); EOSINOPHILS % (AUTO) 0 % (0-10); LYMPHOCYTES # (AUTO) 1.9 X 10^3 (1.0-4.0); LYMPHOCYTES % (AUTO) 13 % (12-44); MEAN CORPUSCULAR HEMOGLOBIN 26 PG (25-34); MEAN CORPUSCULAR HGB CONC 30 G/DL (32-36); MEAN CORPUSCULAR VOLUME 87 FL (80-99); MEAN PLATELET VOLUME 10.4 FL (7.4-10.4); MONOCYTES % (AUTO) 7 % (0-12); NEUTROPHILS # (AUTO) 11.5 X 10^3 (1.8-7.8); NEUTROPHILS % (AUTO) 80 % (42-75); PLATELET COUNT 415 10^3/uL (130-400); RED BLOOD COUNT 3.59 10^6/uL (4.35-5.85); RED CELL DISTRIBUTION WIDTH 18.4 % (10.0-14.5); WHITE BLOOD COUNT 14.5 10^3/uL (4.3-11.0)
[2016-05-30 11:17] LABS: ALBUMIN 3.6 G/DL (3.2-4.5); BILIRUBIN,TOTAL 0.4 MG/DL (0.1-1.0); CALCIUM 9.3 MG/DL (8.5-10.1); CREATININE SERUM 1.04 MG/DL (0.60-1.30); POTASSIUM 4.3 MMOL/L (3.6-5.0); TOTAL PROTEIN 7.8 G/DL (6.4-8.2)
[2016-05-30 11:38] LABS: THYROID STIMULATING HORMONE 1.09 UIU/ML (0.35-4.94)
[2016-06-20 11:18] LABS: BASOPHILS % (AUTO) 0 % (0-10); EOSINOPHILS # (AUTO) 0.2 10^3/uL (0.0-0.3); EOSINOPHILS % (AUTO) 1 % (0-10); LYMPHOCYTES # (AUTO) 3.2 X 10^3 (1.0-4.0); LYMPHOCYTES % (AUTO) 20 % (12-44); MEAN CORPUSCULAR HEMOGLOBIN 27 PG (25-34); MEAN CORPUSCULAR HGB CONC 30 G/DL (32-36); MEAN CORPUSCULAR VOLUME 88 FL (80-99); MEAN PLATELET VOLUME 10.1 FL (7.4-10.4); MONOCYTES # (AUTO) 1.1 X 10^3 (0.0-1.0); MONOCYTES % (AUTO) 7 % (0-12); NEUTROPHILS # (AUTO) 11.2 X 10^3 (1.8-7.8); NEUTROPHILS % (AUTO) 71 % (42-75); PLATELET COUNT 466 10^3/uL (130-400); RED BLOOD COUNT 3.72 10^6/uL (4.35-5.85); RED CELL DISTRIBUTION WIDTH 18.8 % (10.0-14.5); WHITE BLOOD COUNT 15.7 10^3/uL (4.3-11.0)
[2016-06-20 11:46] LABS: ALBUMIN 3.6 G/DL (3.2-4.5); BILIRUBIN,TOTAL 0.4 MG/DL (0.1-1.0); CALCIUM 9.1 MG/DL (8.5-10.1); CREATININE SERUM 0.95 MG/DL (0.60-1.30); POTASSIUM 4.7 MMOL/L (3.6-5.0); TOTAL PROTEIN 7.5 G/DL (6.4-8.2)
[2016-06-20 12:10] LABS: BILIRUBIN,URINE NEGATIVE (NEGATIVE); KETONES,URINE NEGATIVE (NEGATIVE); LEUKOCYTE ESTERASE ,URINE 3+ (NEGATIVE); NITRITE,URINE POSITIVE (NEGATIVE); PH,URINE 6 (5-9); PROTEIN,URINE 1+ (NEGATIVE); UROBILINOGEN,URINE NORMAL (NORMAL)
[2016-06-20 12:20] LABS: SQUAMOUS EPITHELIAL CELL,UR 0-2 /HPF; WBC,URINE >100 /HPF
[2016-07-12 10:38] LABS: BASOPHILS % (AUTO) 0 % (0-10); EOSINOPHILS # (AUTO) 0.2 10^3/uL (0.0-0.3); EOSINOPHILS % (AUTO) 1 % (0-10); LYMPHOCYTES # (AUTO) 3.4 X 10^3 (1.0-4.0); LYMPHOCYTES % (AUTO) 21 % (12-44); MEAN CORPUSCULAR HEMOGLOBIN 27 PG (25-34); MEAN CORPUSCULAR HGB CONC 30 G/DL (32-36); MEAN CORPUSCULAR VOLUME 90 FL (80-99); MEAN PLATELET VOLUME 10.3 FL (7.4-10.4); MONOCYTES # (AUTO) 0.9 X 10^3 (0.0-1.0); MONOCYTES % (AUTO) 6 % (0-12); NEUTROPHILS # (AUTO) 11.6 X 10^3 (1.8-7.8); NEUTROPHILS % (AUTO) 72 % (42-75); PLATELET COUNT 406 10^3/uL (130-400); RED BLOOD COUNT 3.72 10^6/uL (4.35-5.85); RED CELL DISTRIBUTION WIDTH 19.5 % (10.0-14.5); WHITE BLOOD COUNT 16.1 10^3/uL (4.3-11.0)
[2016-07-12 11:03] LABS: ALBUMIN 3.7 G/DL (3.2-4.5); BILIRUBIN,TOTAL 0.3 MG/DL (0.1-1.0); CALCIUM 9.5 MG/DL (8.5-10.1); CREATININE SERUM 1.11 MG/DL (0.60-1.30); POTASSIUM 4.6 MMOL/L (3.6-5.0); TOTAL PROTEIN 7.9 G/DL (6.4-8.2)
[2016-07-12 12:01] LABS: THYROID STIMULATING HORMONE 1.91 UIU/ML (0.35-4.94)
[2016-07-31 13:21] LABS: BASOPHILS % (AUTO) 0 % (0-10); EOSINOPHILS # (AUTO) 0.2 10^3/uL (0.0-0.3); EOSINOPHILS % (AUTO) 1 % (0-10); LYMPHOCYTES # (AUTO) 1.8 X 10^3 (1.0-4.0); LYMPHOCYTES % (AUTO) 10 % (12-44); MEAN CORPUSCULAR HEMOGLOBIN 28 PG (25-34); MEAN CORPUSCULAR HGB CONC 31 G/DL (32-36); MEAN CORPUSCULAR VOLUME 89 FL (80-99); MEAN PLATELET VOLUME 9.6 FL (7.4-10.4); MONOCYTES % (AUTO) 6 % (0-12); NEUTROPHILS # (AUTO) 15.6 X 10^3 (1.8-7.8); NEUTROPHILS % (AUTO) 84 % (42-75); PLATELET COUNT 360 10^3/uL (130-400); RED BLOOD COUNT 3.12 10^6/uL (4.35-5.85); RED CELL DISTRIBUTION WIDTH 18.6 % (10.0-14.5); WHITE BLOOD COUNT 18.7 10^3/uL (4.3-11.0)
[2016-07-31 13:55] LABS: ALBUMIN 3.2 G/DL (3.2-4.5); BILIRUBIN,TOTAL 0.5 MG/DL (0.1-1.0); CALCIUM 9.1 MG/DL (8.5-10.1); CREATININE SERUM 1.33 MG/DL (0.60-1.30); POTASSIUM 4.3 MMOL/L (3.6-5.0); TOTAL PROTEIN 7.4 G/DL (6.4-8.2)
[2016-08-09 09:06] LABS: BASOPHILS % (AUTO) 0 % (0-10); EOSINOPHILS % (AUTO) 0 % (0-10); LYMPHOCYTES % (AUTO) 25 % (12-44); MEAN CORPUSCULAR HEMOGLOBIN 27 PG (25-34); MEAN CORPUSCULAR HGB CONC 30 G/DL (32-36); MEAN CORPUSCULAR VOLUME 90 FL (80-99); MEAN PLATELET VOLUME 9.1 FL (7.4-10.4); MONOCYTES # (AUTO) 0.3 X 10^3 (0.0-1.0); MONOCYTES % (AUTO) 4 % (0-12); NEUTROPHILS # (AUTO) 5.5 X 10^3 (1.8-7.8); NEUTROPHILS % (AUTO) 70 % (42-75); PLATELET COUNT 301 10^3/uL (130-400); RED BLOOD COUNT 3.36 10^6/uL (4.35-5.85); RED CELL DISTRIBUTION WIDTH 17.4 % (10.0-14.5); WHITE BLOOD COUNT 7.9 10^3/uL (4.3-11.0)
[2016-08-09 09:29] LABS: CALCIUM 9.1 MG/DL (8.5-10.1); CREATININE SERUM 1.26 MG/DL (0.60-1.30); POTASSIUM 4.2 MMOL/L (3.6-5.0)
[2016-08-16 09:00] LABS: BASOPHILS % (AUTO) 0 % (0-10); EOSINOPHILS % (AUTO) 0 % (0-10); LYMPHOCYTES # (AUTO) 1.6 X 10^3 (1.0-4.0); LYMPHOCYTES % (AUTO) 37 % (12-44); MEAN CORPUSCULAR HEMOGLOBIN 27 PG (25-34); MEAN CORPUSCULAR HGB CONC 30 G/DL (32-36); MEAN CORPUSCULAR VOLUME 91 FL (80-99); MEAN PLATELET VOLUME 9.9 FL (7.4-10.4); MONOCYTES # (AUTO) 0.1 X 10^3 (0.0-1.0); MONOCYTES % (AUTO) 2 % (0-12); NEUTROPHILS # (AUTO) 2.7 X 10^3 (1.8-7.8); NEUTROPHILS % (AUTO) 61 % (42-75); PLATELET COUNT 115 10^3/uL (130-400); RED BLOOD COUNT 2.83 10^6/uL (4.35-5.85); RED CELL DISTRIBUTION WIDTH 16.5 % (10.0-14.5); WHITE BLOOD COUNT 4.3 10^3/uL (4.3-11.0)
[2016-08-16 09:42] LABS: CALCIUM 8.7 MG/DL (8.5-10.1); CREATININE SERUM 0.96 MG/DL (0.60-1.30); MAGNESIUM 1.7 MG/DL (1.8-2.4); POTASSIUM 4.8 MMOL/L (3.6-5.0)
[~2016-08-23] VITALS: Ht 175.3 cm; Wt 110.2 kg
[~2016-08-23 08:42] MED LIST changes: +ACETAMINOPHEN 500 MG TAB (TYLENOL) CANCER CTR PO PRN; -ARIP20TA9 PO; +CARBOPLATIN 150 MG in D5W 50 ML IV(CANCER CTR) 50 ML IV SCH; +CARBOPLATIN IV SCH; +D5W IV SCH; -DULO60CA58 PO; +FAMOTIDINE 20MG/2ML IV (CANCER CTR) IV SCH; -FENT1PAT8 TD; -FENT1PAT9 TD; -FLUC100T6 PO; -GADOBUTROL 7.5 MMOL/7.5 ML (GADAVIST) VIAL IV ONE; +GEMCITABINE HCL (GENERIC) 1,000 MG, GEMCITABINE HCL (GENERIC) 600 MG in NS (IVPB) CANCE... IV SCH; -GUAI600T43 PO; -HYDR-3731 PO; +HYDROcodone/APAP 5 MG/325 MG (LORTAB) CANCER CTR ONE; +LORazepam 0.5 MG (ATIVAN) TABLET CANCER CTR PO PRN; +NS (IVPB) CANCER CENTER 250 ML ONE; +NS IV 500 ML (CANCER CENTER) IV SCH; +ONDANSETRON MDV (CANCER CENTER 16 MG, DEXAMETHASONE PF INJ (CANCER C 8 MG in NS (IVPB) ... IV SCH; +PEMBROLIZUMAB 200 MG in NS (IVPB) CANCER CENTER 50 ML IV SCH; +inSUlin (REGULAR) HUMAN 1 UNIT/0.01 ML DOSE CANCER CTR SC ONE
[2016-08-23 09:15] LABS: BASOPHILS % (AUTO) 1 % (0-10); EOSINOPHILS # (AUTO) 0.1 10^3/uL (0.0-0.3); EOSINOPHILS % (AUTO) 2 % (0-10); LYMPHOCYTES # (AUTO) 1.9 X 10^3 (1.0-4.0); LYMPHOCYTES % (AUTO) 39 % (12-44); MEAN CORPUSCULAR HEMOGLOBIN 27 PG (25-34); MEAN CORPUSCULAR HGB CONC 30 G/DL (32-36); MEAN CORPUSCULAR VOLUME 90 FL (80-99); MEAN PLATELET VOLUME 11.2 FL (7.4-10.4); MONOCYTES # (AUTO) 1.2 X 10^3 (0.0-1.0); MONOCYTES % (AUTO) 25 % (0-12); NEUTROPHILS # (AUTO) 1.7 X 10^3 (1.8-7.8); NEUTROPHILS % (AUTO) 34 % (42-75); PLATELET COUNT 430 10^3/uL (130-400); RED BLOOD COUNT 2.93 10^6/uL (4.35-5.85); RED CELL DISTRIBUTION WIDTH 18.7 % (10.0-14.5); WHITE BLOOD COUNT 4.9 10^3/uL (4.3-11.0)
[2016-08-23 09:37] LABS: ALBUMIN 3.5 G/DL (3.2-4.5); BILIRUBIN,TOTAL 0.2 MG/DL (0.1-1.0); CALCIUM 9.2 MG/DL (8.5-10.1); CREATININE SERUM 1.11 MG/DL (0.60-1.30); MAGNESIUM 1.8 MG/DL (1.8-2.4); POTASSIUM 4.7 MMOL/L (3.6-5.0); TOTAL PROTEIN 7.5 G/DL (6.4-8.2)
[2016-08-23] MEDS ORDERED: PALONOSETRON 0.25 MG, DEXAMETHASONE 10 MG/NS 50 ML IVPB IV PRN ×3 (10:15)
[2016-08-23] MEDS ORDERED: PALONOSETRON HCL IV PRN (10:15)
[2016-08-23] MEDS ORDERED: DEXAMETHASONE IV PRN (10:15)
[2016-08-23] MEDS ORDERED: [UNRECOGNIZED DRUG - OTHER] IV PRN (10:15)
[2016-08-28] MEDS ORDERED: HYDR-3731 PO (15:03)
[2016-08-28] MEDS ORDERED: DULO60CA58 PO (15:03)
[2016-08-28] MEDS ORDERED: ARIP20TA9 PO (15:03)
[2016-08-28] MEDS ORDERED: FENT1PAT8 TD (15:03)
[2016-08-28] MEDS ORDERED: GUAI600T43 PO (15:12)
[2016-09-07] MEDS ORDERED: FENT1PAT9 TD (09:00)
[2016-09-07] MEDS ORDERED: LEVO500T2 PO (09:00)
[2016-09-07] MEDS ORDERED: FLUC100T6 PO (09:00)
== END 2016-08-28 | disposition home or self-care (01) ==
LOC: ONC 08:42
PROVIDERS: ATTEND Internal Medicine Hematology & Oncology
DX: Z51.11 Encounter for antineoplastic chemotherapy (principal); C34.12 Malignant neoplasm of upper lobe, left bronchus or lung; I25.10 Atherosclerotic heart disease of native coronary artery without angina pectoris; E11.9 Type 2 diabetes mellitus without complications; Z79.899 Other long term (current) drug therapy
CPT/HCPCS: 36415; 36591; 80048; 80053; 81000; 83735; 84439; 84443; 85025; 87088; 87186; 96375; 96413; 96417; 99213

== ENCOUNTER 2016-08-28 12:29 | Inpatient (IN) | payer MEDICAID ==
[2016-08-28] VITALS (11 sets, daily range): BP systolic 99–160; BP diastolic 48–118
[~2016-08-28] VITALS: Ht 167.6 cm; Wt 113.4 kg
[~2016-08-28 12:29] MED LIST changes: -ACETAMINOPHEN 500 MG TAB (TYLENOL) CANCER CTR PO PRN; -CARBOPLATIN 150 MG in D5W 50 ML IV(CANCER CTR) 50 ML IV SCH; -CARBOPLATIN IV SCH; -D5W IV SCH; -FAMOTIDINE 20MG/2ML IV (CANCER CTR) IV SCH; -GEMCITABINE HCL (GENERIC) 1,000 MG, GEMCITABINE HCL (GENERIC) 600 MG in NS (IVPB) CANCE... IV SCH; -HYDROcodone/APAP 5 MG/325 MG (LORTAB) CANCER CTR ONE; -LORazepam 0.5 MG (ATIVAN) TABLET CANCER CTR PO PRN; -NS (IVPB) CANCER CENTER 250 ML ONE; -NS IV 500 ML (CANCER CENTER) IV SCH; -ONDANSETRON MDV (CANCER CENTER 16 MG, DEXAMETHASONE PF INJ (CANCER C 8 MG in NS (IVPB) ... IV SCH; -PEMBROLIZUMAB 200 MG in NS (IVPB) CANCER CENTER 50 ML IV SCH; -inSUlin (REGULAR) HUMAN 1 UNIT/0.01 ML DOSE CANCER CTR SC ONE
[2016-08-28] MEDS ORDERED: RT-ALBUTEROL/IPRATROPIUM 3 ML (DUONEB) VIAL ONE (12:33)
--- NOTE | 2016-08-28 12:43 | ED General ---
General Chief Complaint: Altered Mental Status Stated Complaint: CONFUSION Source of Information: EMS, [facility] Records Exam Limitations: No Limitations History of Present Illness Time Seen by Provider: 12:41 Initial Comments Sent to ER or EMS from [place] with reports of altered mental status /confusion since receiving chemotherapy last week. She has lung cancer currently being treated here with chemotherapy in our cancer center, Dr Mccauley. EMS found oxygen saturation to be 60 percent upon their arrival on her baseline 2 L. Nonrebreather was started and increased to 95 percent of the time she arrived to the emergency room. She is febrile at 101.7. Timing/Duration: 2-3 Days Severity: Moderate Associated Systoms: Cough, Fever/Chills Allergies and Home Medications Allergies Coded Allergies: Penicillins (Unverified Allergy, Severe, RASH, 05/11/11) Sulfa (Sulfonamide Antibiotics) (Verified Allergy, Intermediate, RASH, 04/10) cephalexin (Unverified Allergy, Intermediate, RASH, 05/11/11) amoxicillin (Verified Allergy, Mild, RASH, 05/11/11) cefaclor (Verified Allergy, Mild, RASH, 05/11/11) clindamycin (Verified Allergy, Mild, RASH, 05/11/11) lincomycin (Unverified Allergy, Mild, RASH, 05/11/11) penicillin G (Verified Allergy, Mild, RASH, 05/11/11) diphenhydramine (Verified Allergy, Unknown, 10/25/05) formoterol (Verified Allergy, Unknown, PT TAKES SYMBICORT AT HOME, 07/19/11 ) levofloxacin (Unverified Allergy, Unknown, 04/20/16) pseudoephedrine (Verified Allergy, Unknown, 10/25/05) zinc acetate (Verified Allergy, Unknown, 10/25/05) codeine (Verified Adverse Reaction, Unknown, NAUSEA, 11/14/08) Home Medications Acetaminophen 325 Mg Tablet, 650 MG PO Q4H PRN for PAIN, (Reported) TAKE 2 (325MG) TABLETS Albuterol Sulfate 2.5 Mg/3 Ml Vial.neb, 2.5 MG IH Q4H PRN for SHORTNESS OF BREATH, (Reported) Aripiprazole 10 Mg Tablet, 10 MG PO BID, (Reported) Aspirin 81 Mg Tab.chew, 81 MG PO DAILY, (Reported) Budesonide/Formoterol Fumarate 10.2 Gm Hfa.aer.ad, 2 PUFF IH BID, (Reported) Carvedilol 25 Mg Tablet, 25 MG PO BID, (Reported) Cyanocobalamin 1,000 Mcg/Ml Inj, 1,000 MCG IM EVERY 2 WEEKS, (Reported) last on 07/12/16 Diclofenac Sodium 100 Gm Gel..gram., 4 GM TP QID, (Reported) Donepezil HCl 5 Mg Tablet, 5 MG PO HS, (Reported) Duloxetine HCl 30 Mg Capsule.dr, 60 MG PO BID, (Reported) TAKES 2 (30 MG) CAPSULES Fluticasone Propionate 16 Gm Lueders.susp, 2 SPRAYS NS BID, (Reported) Furosemide 40 Mg Tablet, 40 MG PO DAILY, (Reported) Hydrocodone/Acetaminophen 1 Each Tablet, 2 TAB PO QID, (Reported) Insulin Detemir 100 Unit/1 Ml Insuln.pen, 80 UNITS SC HS, (Reported) Isosorbide Mononitrate 60 Mg Tab, 60 MG PO DAILY, (Reported) HOLD IF DIASTOLIC <60 Lactobacillus Acidophilus 1 Each Capsule, 1 CAP PO DAILY, (Reported) Mag Hydrox/Al Hydrox/Simeth 355 Ml Oral.susp, 30 ML PO Q6H PRN for HEARTBURN, ( Reported) Magnesium Hydroxide 400 Mg/5 Ml Oral.susp, 30 ML PO DAILY PRN for CONSTIPATION, (Reported) Magnesium Oxide 400 Mg Tablet, 400 MG PO DAILY, (Reported) Memantine HCl 10 Mg Tablet, 10 MG PO HS, (Reported) Nystatin 15 Gm Cream..g., TP BID, (Reported) APPLY TO GROIN Ondansetron HCl 4 Mg Tablet, 4 MG PO Q4H PRN for NAUSEA/VOMITING, (Reported) Pantoprazole Sodium 40 Mg Tablet.dr, 40 MG PO BID, (Reported) Polyethylene Glycol 3350 255 Gm Powder, 17 GM PO HS, (Reported) Prednisone 10 Mg Tab, 10 MG PO HS, (Reported) Propylene Glycol/Peg 400 15 Ml Drops, 2 DROPS OU Q6H PRN for ALLERGIC RHINITIS, (Reported) Simvastatin 20 Mg Tablet, 20 MG PO HS, (Reported) Tiotropium [place] 1 Inh Aerp, 1 PUFF IH 1700, (Reported) Constitutional: see HPI, other (patient is confused and does not contribute to the history of present illness/review of systems) Past Noeerje-Ntzxqe-Jdacvp Hx Patient Social History Type Used: Cigarettes Former Smoker/When Quit: Jul 07, 2008 Recent Hopitalizations: Yes (MARCH 2016) Immunizations Up To Date Tetanus Booster (TDap): Unknown Date of Pneumonia Vaccine: Feb 03, 2013 Date of Influenza Vaccine: Jan 24, 2016 Seasonal Allergies Seasonal Allergies: No Surgeries HX Surgeries: Yes (D&C, NECK SX) Surgeries: Cardiac Respiratory Hx Respiratory Disorders: Yes (LUNG CA, WEARS OXYGEN) Respiratory Disorders: Pneumonia, Chronic Bronchitis, COPD Cardiovascular Hx Cardiac Disorders: Yes Cardiac Disorders: Coronary Artery Disease, Hypertension, Irregular Heartbeat Neurological Hx Neurological Disorders: Yes (TREMORS) Neurological Disorders: Dementia, Neuropathy Reproductive System Hx Reproductive Disorders: No Sexually Transmitted Disease: No HIV/AIDS: No Genitourinary Hx Genitourinary Disorders: Yes Genitourinary Disorders: UTI-Chronic Gastrointestinal Hx Gastrointestinal Disorders: Yes Gastrointestinal Disorders: Gastroesophageal Reflux, Chronic Constipation, Hiatal Hernia Musculoskeletal Hx Musculoskeletal Disorders: Yes (CHRONIC GENERALIZED PAIN, PMR, NON- AMBULATORY - USES WHEELCHAIR/OCC. 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) Cancer: Lung Psychosocial Hx Psychiatric Problems: Yes (HALLUCINATIONS) Behavioral Health Disorders: Anxiety, Bipolar, Schizophrenia, Depression Integumentary HX Skin/Integumentary Disorder: Yes Skin/Integumentary Disorders: Pruritis Blood Transfusions Hx Blood Disorders: Yes (IRON DEF ANEMIA) Adverse Reaction to a Blood Tr: No Family Medical History Family Medial History: Arthritis 19 MOTHER Cardiovascular disease 19 MOTHER Cataracts 19 MOTHER Completed stroke 19 MOTHER Dementia 19 MOTHER Drug abuse son Fibrocystic disease of breast daughter Hypertension 19 MOTHER Neoplasm 19 FATHER Severe allergy 19 MOTHER daughter son Physical Exam Vital Signs Vital Sign - Last 12Hours 08/28/16 08/28/16 12:32 13:30 Temp 101.7 Pulse 103 Resp 25 B/P (MAP) 132/80 Pulse Ox 96 O2 Delivery Nasal Cannula O2 Flow Rate 30.00 Capillary Refill : General Appearance: No Apparent Distress, WD/WN, Other (alert with eyes open and breathing treatment being administered. She does mumble incoherently) Eyes: Bilateral Eye EOMI, Bilateral Eye Normal Inspection, Bilateral Eye PERRL HEENT: PERRL/EOMI, TMs Normal Neck: Full Range of Motion, Normal Inspection Respiratory: No Accessory Muscle Use, No Respiratory Distress, Crackles, Rhonci Cardiovascular: Regular Rate, Rhythm, Normal Peripheral Pulses Gastrointestinal: Non Tender, Soft Neurologic/Psychiatric: Other (lethargic) Skin: Cool, Other (mottled appearance of the arms.) Focused Exam Lactic Acid Level Laboratory Tests Test 08/28/16 12:40 Lactic Acid Level 3.43 MMOL/L (0.50-2.00) *H Progress/Results/Core Measures Results/Orders Lab Results Laboratory Tests Test 08/28/16 12:40 08/28/16 12:43 08/28/16 12:50 Range/Units White Blood Count 8.8 4.3-11.0 10^3/uL Red Blood Count 2.83 L 4.35-5.85 10^6/uL Hemoglobin 7.8 L 11.5-16.0 G/DL Hematocrit 26 L 35-52 % Mean Corpuscular Volume 90 80-99 FL Mean Corpuscular Hemoglobin 28 25-34 PG Mean Corpuscular Hemoglobin Concent 31 L 32-36 G/DL Red Cell Distribution Width 18.7 H 10.0-14.5 % Platelet Count 687 H 130-400 10^3/uL Mean Platelet Volume 10.3 7.4-10.4 FL Neutrophils (%) (Auto) 73 42-75 % Lymphocytes (%) (Auto) 21 12-44 % Monocytes (%) (Auto) 5 0-12 % Eosinophils (%) (Auto) 1 0-10 % Basophils (%) (Auto) 1 0-10 % Neutrophils # (Auto) 6.4 1.8-7.8 X 10^3 Lymphocytes # (Auto) 1.9 1.0-4.0 X 10^3 Monocytes # (Auto) 0.4 0.0-1.0 X 10^3 Eosinophils # (Auto) 0.1 0.0-0.3 10^3/uL Basophils # (Auto) 0.0 0.0-0.1 10^3/uL Sodium Level 136 135-145 MMOL/L Potassium Level 4.8 3.6-5.0 MMOL/L Chloride Level 95 L 98-107 MMOL/L Carbon Dioxide Level 25 21-32 MMOL/L Anion Gap 16 H 5-14 MMOL/L Blood Urea Nitrogen 29 H 7-18 MG/DL Creatinine 1.00 0.60-1.30 MG/DL Estimat Glomerular Filtration Rate 55 BUN/Creatinine Ratio 29 Glucose Level 134 H 70-105 MG/DL Lactic Acid Level 3.43 *H 0.50-2.00 MMOL/L Calcium Level 9.2 8.5-10.1 MG/DL Total Bilirubin 0.4 0.1-1.0 MG/DL Aspartate Amino Transf (AST/SGOT) 16 5-34 U/L Alanine Aminotransferase (ALT/SGPT) 19 0-55 U/L Alkaline Phosphatase 104 40-136 U/L Troponin I < 0.30 <0.30 NG/ML B-Type Natriuretic Peptide 82.2 <100.0 PG/ML Total Protein 7.8 6.4-8.2 G/DL Albumin 3.6 3.2-4.5 G/DL Blood Gas Puncture Site RT RAD Blood Gas Patient Temperature 101.7 Arterial Blood pH 7.43 7.37-7.43 Arterial Blood Partial Pressure CO2 44 35-45 MMHG Arterial Blood Partial Pressure O2 74 L 79-93 MMHG Arterial Blood HCO3 28 H 23-27 MMOL/L Arterial Blood Total CO2 29.5 21.0-31.0 MMOL/L Arterial Blood Oxygen Saturation 93 L 94-100 % Arterial Blood Base Excess 4.5 H -2.5-2.5 MMOL/L Chandrakant Test YES-POS Blood Gas Ventilator Setting NO Blood Gas Inspired Oxygen 10 GA RT Urine Color YELLOW Urine Clarity CLEAR Urine pH 6 5-9 Urine Specific Orient 1.010 L 1.016-1.022 Urine Protein 2+ H NEGATIVE Urine Glucose (UA) NEGATIVE NEGATIVE Urine Ketones NEGATIVE NEGATIVE Urine Nitrite NEGATIVE NEGATIVE Urine Bilirubin NEGATIVE NEGATIVE Urine Urobilinogen NORMAL NORMAL MG/DL Urine Leukocyte Esterase 1+ H NEGATIVE Urine RBC (Auto) NEGATIVE NEGATIVE Urine RBC RARE /HPF Urine WBC 5-10 H /HPF Urine Crystals NONE /LPF Urine Bacteria LARGE H /HPF Urine Casts NONE /LPF Urine Mucus NEGATIVE /LPF Urine Culture Indicated YES My Orders Orders - SHALOM RENEE APRN Ct Head/Cervical Spine Wo (08/28/16 12:39) Chest Pa/Lat (2 View) (08/28/16 12:39) Cbc With Automated Diff (08/28/16 12:39) Comprehensive Metabolic Panel (08/28/16 12:39) BNP (08/28/16 12:39) Troponin I (08/28/16 12:39) Ua Culture If Indicated (08/28/16 12:39) Guzman Cath Insertion (08/28/16 12:39) Saline Lock/Iv-Start (08/28/16 12:39) Blood Culture (08/28/16 12:39) Lactic Acid Analyzer (08/28/16 12:39) Acetaminophen Tablet (Tylenol Tablet) (08/28/16 12:45) Arterial Blood Gas (08/28/16 12:46) Meropenem (Merrem 500 Mg) (08/28/16 13:00) Urine Culture (08/28/16 12:50) Furosemide Injection (Lasix Injection) (08/28/16 13:15) Bipap Rt-Rfs (08/28/16 13:17) Medications Given in ED Current Medications Medications Dose Ordered Sig/Maurice Route Start Time Stop Time Status Last Admin Dose Admin Acetaminophen 1,000 mg ONCE ONCE PO 08/28/16 12:45 08/28/16 12:46 DC 08/28/16 13:08 1,000 MG Furosemide 40 mg ONCE ONCE IVP 08/28/16 13:15 08/28/16 13:16 DC 08/28/16 13:26 40 MG Meropenem 500 mg/ Sodium Chloride 100 ml @ 200 mls/hr ONCE ONCE IV 08/28/16 13:00 08/28/16 13:29 DC 08/28/16 13:08 200 MLS/HR Vital Signs/I&O Vital Sign - Last 12Hours 08/28/16 08/28/16 08/28/16 12:32 13:30 13:57 Temp 101.7 100.0 Pulse 103 100 96 Resp 25 18 18 B/P (MAP) 132/80 Pulse Ox 96 95 95 O2 Delivery Nasal Cannula O2 Flow Rate 30.00 6.00 Diagnostic Imaging Diagonstic Imaging: Xray Plain Films/CT/US/NM/MRI: chest Comments NAME: YIMI KNIGHT MED REC#: [id number] PT STATUS: REG ER : 1945 PHYSICIAN: SHALOM RENEE DRAFTER ADMIT DATE: 08/28/16/ER Draft Date of Exam:08/28/16 CHEST PA/LAT (2 VIEW) PA and lateral views of the chest. COMPARISON: 04/25/16. INDICATION: Fever. Confusion. FINDINGS: There is pulmonary hyperinflation and thickening of the interstitial markings similar to 04/25/2016. There is no acute infiltrate. The heart size is normal. There is mild pleural thickening or tiny effusions could be present. There is cervical spine fusion hardware and infusion port along the right internal jugular vein with its tip in the proximal right atrium. IMPRESSION: Cardiomegaly. Chronic interstitial thickening unchanged from 04/25/2016. Dictated on workstation # [id number] Dict: 08/28/16 1306 Trans: 08/28/16 1315 JOSE [id number] Interpreted by: NANCY BIGGS MD Electronically signed by: Departure Communication Time/Spoke to Admitting Phy: 14:07 Communication I discussed the case with Dr. Brower and Dr. Mccauley. Both of whom agreed to admit. Patient is still a full CODE STATUS and I did discuss this with the patient's daughter Carmencita. Carmencita states that she disagrees with a full CODE STATUS but that is what the patient wished for. Progress Notes 1318-oxygen saturation is down to 77 percent with good waveform on 2 L. We will start the patient on BiPap Impression Impression: Primary Impression: Hypoxia Additional Impressions: Lung cancer Altered mental status COPD exacerbation Disposition: ADMITTED INPATIENT Condition: Critical Decision to Admit Reason: Admit from ER (General) Decision to Admit/Date: August 28, 2016 Time/Decision to Admit Time: 13:19 Departure-Patient Inst. Referrals: CHRISTIAN BROWER DO (PCP/Family) Primary Care Physician SHALOM RENEE APRN August 28, 2016 12:43
[2016-08-28] MEDS ORDERED: ACETAMINOPHEN 500 MG TAB (TYLENOL) PO ONE (12:45)
[2016-08-28 12:59] LABS: BASOPHILS % (AUTO) 1 % (0-10); EOSINOPHILS # (AUTO) 0.1 10^3/uL (0.0-0.3); EOSINOPHILS % (AUTO) 1 % (0-10); LYMPHOCYTES # (AUTO) 1.9 X 10^3 (1.0-4.0); LYMPHOCYTES % (AUTO) 21 % (12-44); MEAN CORPUSCULAR HEMOGLOBIN 28 PG (25-34); MEAN CORPUSCULAR HGB CONC 31 G/DL (32-36); MEAN CORPUSCULAR VOLUME 90 FL (80-99); MEAN PLATELET VOLUME 10.3 FL (7.4-10.4); MONOCYTES # (AUTO) 0.4 X 10^3 (0.0-1.0); MONOCYTES % (AUTO) 5 % (0-12); NEUTROPHILS # (AUTO) 6.4 X 10^3 (1.8-7.8); NEUTROPHILS % (AUTO) 73 % (42-75); PLATELET COUNT 687 10^3/uL (130-400); RED BLOOD COUNT 2.83 10^6/uL (4.35-5.85); RED CELL DISTRIBUTION WIDTH 18.7 % (10.0-14.5); WHITE BLOOD COUNT 8.8 10^3/uL (4.3-11.0)
[2016-08-28 13:00] LABS: ABG BASE EXCESS 4.5 MMOL/L (-2.5-2.5); ABG HCO3 28 MMOL/L (23-27); ABG OXYGEN SATURATION 93 % (94-100); ABG PCO2 44 MMHG (35-45); ABG PH 7.43 (7.37-7.43); ABG PO2 74 MMHG (79-93); ABG TCO2 29.5 MMOL/L (21.0-31.0)
[2016-08-28] MEDS ORDERED: MEROPENEM 500 MG in NS (IVPB) 100 ML IV ONE (13:00)
[2016-08-28 13:01] LABS: BILIRUBIN,URINE NEGATIVE (NEGATIVE); KETONES,URINE NEGATIVE (NEGATIVE); LEUKOCYTE ESTERASE ,URINE 1+ (NEGATIVE); NITRITE,URINE NEGATIVE (NEGATIVE); PH,URINE 6 (5-9); PROTEIN,URINE 2+ (NEGATIVE); UROBILINOGEN,URINE NORMAL (NORMAL)
[2016-08-28 13:01] LABS: ALLENS TEST YES-POS; PATIENT TEMP 101.7
[2016-08-28] MEDS ORDERED: FUROSEMIDE 40 MG/4 ML INJ (LASIX) IVP ONE (13:15)
[2016-08-28 13:16] LABS: ALANINE AMINOTRANSFERASE 19 U/L (0-55); ALBUMIN 3.6 G/DL (3.2-4.5); ANION GAP 16 MMOL/L (5-14); ASPARTATE AMINO TRANSFERASE 16 U/L (5-34); BILIRUBIN,TOTAL 0.4 MG/DL (0.1-1.0); BLOOD UREA NITROGEN 29 MG/DL (7-18); BUN/CREATININE RATIO 29; CALCIUM 9.2 MG/DL (8.5-10.1); CARBON DIOXIDE 25 MMOL/L (21-32); CHLORIDE 95 MMOL/L (98-107); GFR ESTIMATED 55; GLUCOSE 134 MG/DL (70-105); SODIUM 136 MMOL/L (135-145); TOTAL PROTEIN 7.8 G/DL (6.4-8.2)
--- NOTE | 2016-08-28 13:16 | Diagnostic Imaging Report ---
PA and lateral views of the chest. COMPARISON: 04/25/16. INDICATION: Fever. Confusion. FINDINGS: There is pulmonary hyperinflation and thickening of the interstitial markings similar to 04/25/2016. There is no acute infiltrate. The heart size is normal. There is mild pleural thickening or tiny effusions could be present. There is cervical spine fusion hardware and infusion port along the right internal jugular vein with its tip in the proximal right atrium. IMPRESSION: Cardiomegaly. Chronic interstitial thickening unchanged from 04/25/2016. Dictated by: Dictated on workstation # [id number]
[2016-08-28 13:18] LABS: POTASSIUM 4.8 MMOL/L (3.6-5.0)
[2016-08-28 13:22] LABS: TROPONIN I < 0.30 NG/ML (<0.30)
--- NOTE | 2016-08-28 13:30 | Diagnostic Imaging Report ---
PROCEDURE: CT head and CT cervical spine without contrast. TECHNIQUE: Multiple contiguous axial images were obtained through the brain and cervical spine without the use of intravenous contrast. Sagittal and coronal reformations through the cervical spine were then performed. INDICATION: Confusion. Fall. FINDINGS: CT head: There is no intracranial hemorrhage. There is periventricular and deep white hypodensities compatible with chronic microvascular ischemic changes. No hydrocephalus. No extra-axial fluid collection is seen. The paranasal sinuses, the calvarium, and the orbits appear grossly unremarkable. CT cervical spine: There is mild motion artifact which could decrease sensitivity of detection of abnormalities on this exam. The quality of the exam evaluation is acceptable for major abnormalities, however. There is anterior fusion hardware and changes involving C5 through C7 levels with corpectomy of C6 level seen and metallic prosthesis along the resected vertebral body portion. There is satisfactory alignment of the posterior spinal line. The vertebral body heights are preserved. The facet joints have preserved alignment as well. There is no widening of the predental space. There is satisfactory alignment of the lateral masses of C1 and C2 and atlantooccipital joints. Degenerative sclerotic changes at mid/ lower cervical spine facet joints are seen. There is also posterior osteophyte projecting from the lower endplate level of C5 reducing the AP dimension of the spinal canal causing moderate spinal canal stenosis. Bilateral moderate neural foraminal narrowing at this level seen. No definite fracture identified. Suggestion of scarring in the left lung apex seen. IMPRESSION: CT head: No intracranial hemorrhage. White matter findings suggestive of chronic microvascular ischemic changes. CT cervical spine: Post-fusion changes with remaining posterior osteophyte at lower C5 level resulting in spinal canal stenosis. No fracture seen. Dictated by: Dictated on workstation # [id number]
[2016-08-28] MEDS ORDERED: NS 100 ML (IVPB) BAG IV ONE (14:30)
[2016-08-28] MEDS ORDERED: CATHETER FLUSH 10 ML SYR IV PRN (14:30)
[2016-08-28] MEDS ORDERED: IOHEXOL 350 MG/ML 100 ML (OMNIPAQUE 350) VIAL IV ONE (14:30)
[2016-08-28] MEDS ORDERED: DULO60CA58 PO (15:03)
[2016-08-28] MEDS ORDERED: HYDR-3731 PO (15:03)
[2016-08-28] MEDS ORDERED: FENT1PAT8 TD (15:03)
[2016-08-28] MEDS ORDERED: ARIP20TA9 PO (15:03)
[2016-08-28] MEDS ORDERED: GUAI600T43 PO (15:12)
[2016-08-28] MEDS: methylPREDNISolone 40 MG/ML (Solu-MEDROL) VIAL IV SCH ×2 (15:54→22:24)
[2016-08-28] MEDS: NS IV 1000 ML 1,000 ML IV SCH (15:55)
[2016-08-28 16:11] LABS: BILIRUBIN,URINE NEGATIVE (NEGATIVE); KETONES,URINE NEGATIVE (NEGATIVE); LEUKOCYTE ESTERASE ,URINE 1+ (NEGATIVE); NITRITE,URINE NEGATIVE (NEGATIVE); PH,URINE 7 (5-9); PROTEIN,URINE NEGATIVE (NEGATIVE); UROBILINOGEN,URINE NORMAL (NORMAL)
--- NOTE | 2016-08-28 16:16 | Consultation ---
History of Present Illness History of Present Illness Patient Consulted On(lindy/time) 08/28/16 16:08 Date of Admission 08/28/16 History of Present Illness This is a 71-year-old female complex medical patient who is well known to me and is followed in the cancer center for metastatic adenocarcinoma of left lung. Her lung cancer was initially diagnosed on 02/01/16. She also has a history of pheochromocytoma diagnosed with CT-guided adrenal gland biopsy on 08/25/15. Her left lung cancer was initially treated with 5 cycles of Pembrolizumab which was recently discontinued because of tumor progression. She has completed 2 cycles of gemcitabine and carboplatin, last dose being administered on 08/23/16. She presented to the emergency room today with complaints of altered mental status and fever to 101.8 associated with hypoxemia and anemia of 7.8 hemoglobin. Recent fall in the [facility] was also reported in which patient sustained a bruise of her left flank area. She has been admitted with exacerbation of COPD associated with probable pneumonia and because of recent chemotherapy and advanced lung cancer she has been started on IV vancomycin and meropenem. No acute processes were seen on CT scan of head. Additionally, abdominal cat scan was performed in ED to evaluate the left flank bruise sustained during her recent fall and showed small amount of free air around the bladder of unclear etiology. Urology consultation has been requested and and her antibiotics will cover urinary tract pathogens. Allergies and Home Medications Allergies Coded Allergies: Penicillins (Unverified Allergy, Severe, RASH, 05/11/11) Sulfa (Sulfonamide Antibiotics) (Verified Allergy, Intermediate, RASH, 04/10) cephalexin (Unverified Allergy, Intermediate, RASH, 05/11/11) amoxicillin (Verified Allergy, Mild, RASH, 05/11/11) cefaclor (Verified Allergy, Mild, RASH, 05/11/11) clindamycin (Verified Allergy, Mild, RASH, 05/11/11) lincomycin (Unverified Allergy, Mild, RASH, 05/11/11) penicillin G (Verified Allergy, Mild, RASH, 05/11/11) diphenhydramine (Verified Allergy, Unknown, 10/25/05) formoterol (Verified Allergy, Unknown, PT TAKES SYMBICORT AT HOME, 07/19/11 ) levofloxacin (Unverified Allergy, Unknown, 04/20/16) pseudoephedrine (Verified Allergy, Unknown, 10/25/05) zinc acetate (Verified Allergy, Unknown, 10/25/05) codeine (Verified Adverse Reaction, Unknown, NAUSEA, 11/14/08) Home Medications Acetaminophen 325 Mg Tablet, 650 MG PO Q4H PRN for PAIN, (Reported) TAKE 2 (325MG) TABLETS Albuterol Sulfate 2.5 Mg/3 Ml Vial.neb, 2.5 MG IH Q4H PRN for SHORTNESS OF BREATH, (Reported) Aripiprazole 20 Mg Tablet, 10 MG PO BID, (Reported) TAKES 1/2 OF A (20 MG) TABLET Aspirin 81 Mg Tab.chew, 81 MG PO DAILY, (Reported) Budesonide/Formoterol Fumarate 10.2 Gm Hfa.aer.ad, 2 PUFF IH BID, (Reported) Carvedilol 25 Mg Tablet, 25 MG PO BID, (Reported) Cyanocobalamin 1,000 Mcg/Ml Inj, 1,000 MCG IM EVERY 2 WEEKS, (Reported) Diclofenac Sodium 100 Gm Gel..gram., 4 GM TP QID, (Reported) Donepezil HCl 5 Mg Tablet, 5 MG PO HS, (Reported) Duloxetine HCl 30 Mg Capsule.dr, 30 MG PO HS, (Reported) Duloxetine HCl 60 Mg Capsule.dr, 60 MG PO BID, (Reported) Fentanyl 1 Each Patch.td72, 25 MCG TD EVERY 72 HOURS, (Reported) SCHEDULED TO BE REPLACED WITH A NEW PATCH 08/29/16 Fluticasone Propionate 16 Gm [place].susp, 2 SPRAYS NS BID, (Reported) Furosemide 40 Mg Tablet, 40 MG PO DAILY, (Reported) Guaifenesin 600 Mg Tab.er.12h, 600 MG PO BID, (Reported) Hydrocodone/Acetaminophen 1 Each Tablet, 2 TAB PO QID PRN for PAIN-MODERATE, ( Reported) Insulin Detemir 100 Unit/1 Ml Insuln.pen, 80 UNITS SC HS, (Reported) Isosorbide Mononitrate 60 Mg Tab, 60 MG PO DAILY, (Reported) HOLD IF DIASTOLIC <60 Lactobacillus Acidophilus 1 Each Capsule, 1 CAP PO DAILY, (Reported) Mag Hydrox/Al Hydrox/Simeth 355 Ml Oral.susp, 30 ML PO Q6H PRN for HEARTBURN, ( Reported) Magnesium Hydroxide 400 Mg/5 Ml Oral.susp, 30 ML PO DAILY PRN for CONSTIPATION, (Reported) Magnesium Oxide 400 Mg Tablet, 400 MG PO DAILY, (Reported) Memantine HCl 10 Mg Tablet, 10 MG PO HS, (Reported) Nystatin 15 Gm Cream..g., TP BID, (Reported) APPLY TO GROIN Ondansetron HCl 4 Mg Tablet, 4 MG PO Q4H PRN for NAUSEA/VOMITING, (Reported) Pantoprazole Sodium 40 Mg Tablet.dr, 40 MG PO BID, (Reported) Polyethylene Glycol 3350 255 Gm Powder, 17 GM PO HS, (Reported) Prednisone 10 Mg Tab, 10 MG PO HS, (Reported) Propylene Glycol/Peg 400 15 Ml Drops, 2 DROPS OU Q6H PRN for ALLERGIC RHINITIS, (Reported) Simvastatin 20 Mg Tablet, 20 MG PO HS, (Reported) Tiotropium [place] 1 Inh Aerp, 1 PUFF IH 1700, (Reported) Past Hzcpawl-[id number]-Vtgkgv Hx Patient Social History Alcohol Use: Denies Use Recreational Drug Use: No Smoking Status: Former Smoker Type Used: Cigarettes Former Smoker/When Quit: Jul 07, 2008 Recent Foreign Travel: No Contact w/Someone Who Travel: No Recent Infectious Disease Expo: No Recent Hopitalizations: Yes (MARCH 2016) Immunizations Up To Date Tetanus Booster (TDap): Unknown Date of Pneumonia Vaccine: Feb 03, 2013 Date of Influenza Vaccine: Jan 24, 2016 Seasonal Allergies Seasonal Allergies: No Surgeries HX Surgeries: Yes (D&C, NECK SX) Surgeries: Cardiac Respiratory Hx Respiratory Disorders: Yes (LUNG CA, WEARS OXYGEN) Respiratory Disorders: Pneumonia, Chronic Bronchitis, COPD Cardiovascular Hx Cardiac Disorders: Yes Cardiac Disorders: Coronary Artery Disease, Hypertension, Irregular Heartbeat Neurological Hx Neurological Disorders: Yes (TREMORS) Neurological Disorders: Dementia, Neuropathy Reproductive System Hx Reproductive Disorders: No Sexually Transmitted Disease: No HIV/AIDS: No Genitourinary Hx Genitourinary Disorders: Yes Genitourinary Disorders: UTI-Chronic Gastrointestinal Hx Gastrointestinal Disorders: Yes Gastrointestinal Disorders: Gastroesophageal Reflux, Chronic Constipation, Hiatal Hernia Musculoskeletal Hx Musculoskeletal Disorders: Yes (CHRONIC GENERALIZED PAIN, PMR, NON- AMBULATORY - USES WHEELCHAIR/OCC. 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) Cancer: Lung Psychosocial Hx Psychiatric Problems: Yes (HALLUCINATIONS) Behavioral Health Disorders: Anxiety, Bipolar, Schizophrenia, Depression Integumentary HX Skin/Integumentary Disorder: Yes Skin/Integumentary Disorders: Pruritis Blood Transfusions Hx Blood Disorders: Yes (IRON DEF ANEMIA) Adverse Reaction to a Blood Tr: No Family Medical History Family Medial History: Arthritis 19 MOTHER Cardiovascular disease 19 MOTHER Cataracts 19 MOTHER Completed stroke 19 MOTHER Dementia 19 MOTHER Drug abuse son Fibrocystic disease of breast daughter Hypertension 19 MOTHER Neoplasm 19 FATHER Severe allergy 19 MOTHER daughter son Review of Systems-General Constitutional: see HPI, fever, weakness Respiratory: see HPI, cough, dyspnea on exertion, short of breath Musculoskeletal: back pain, joint pain Psychiatric/Neurological: See HPI, Other (confusion) Physical Exam-General Problems Physical Exam Vital Signs Vital Sign - Last 12Hours 08/28/16 08/28/16 12:32 13:30 Temp 101.7 Pulse 103 Resp 25 B/P (MAP) 132/80 Pulse Ox 96 O2 Delivery Nasal Cannula O2 Flow Rate 30.00 Capillary Refill : Less Than 3 Seconds General Appearance: mild distress (patient reports pain in back of head and upper neck;), obese HEENT: PERRL/EOMI Neck: other (reports pain occipital area and upper neck; no reproducible tenderness) Respiratory: decreased breath sounds, crackles Cardiovascular: regular rate, rhythm Gastrointestinal: normal bowel sounds, soft, tenderness (mild tenderness in epigastrium and suprapubic area;) Rectal: deferred Neurologic/Psychiatric: alert, disoriented x 3 (no gross focal deficit;) Comments Laboratory Tests 08/28/16 12:40: Red Blood Count 2.83L, Hemoglobin 7.8L, Hematocrit 26L, Mean Corpuscular Hemoglobin Concent 31L, Red Cell Distribution Width 18.7H, Platelet Count 687H, Chloride Level 95L, Anion Gap 16H, Blood Urea Nitrogen 29H, Glucose Level 134H, Lactic Acid Level 3.43*H 08/28/16 12:43: Arterial Blood Partial Pressure O2 74L, Arterial Blood HCO3 28H, Arterial Blood Oxygen Saturation 93L, Arterial Blood Base Excess 4.5H 08/28/16 12:50: Urine Specific [place] 1.010L, Urine Protein 2+H, Urine Leukocyte Esterase 1+H, Urine WBC 5-10H, Urine Bacteria LARGEH 08/28/16 15:50: 08/28/16 16:00: Urine Specific [place] 1.010L, Urine Leukocyte Esterase 1+H, Urine RBC (Auto) 1+ H, Urine WBC 5-10H Laboratory Tests 08/28/16 12:40 CAT scan abdomen and pelvis done 08/28/16:IMPRESSION: 1. Patchy areas of consolidation in the lung bases, increased from 07/04/2016 suggestive of pneumonia. 2. Left adrenal mass measuring 2.9 cm, minimally enlarged compared to 2016. 3. Lytic mass in the L5 vertebral body, similar to 07/20/2015, but significantly larger when compared to 2016 exams. 4. Air bubbles seen in the urinary bladder wall and around it, within the extraperitoneal space. This is concerning for extraperitoneal bladder injury, potentially related to the Guzman catheter placement. Gas-forming infection is is another potential explanation although less likely. Correlate clinically. Assessment/Plan Assessment/Plan Admission Diagnosis/Plan 1. Fever-follow results of his cultures of sputum blood in urine--maintain IV antibiotics 2. Altered mental status-CT head negative for acute process; likely related to pneumonia; patient also has history of psychiatric disorder 3. Bilateral infiltrates associated with hypoxemia in patient with known history of COPD with chronic oxygen dependency and left lung cancer--sputum culture and blood culture--currently receiving IV vancomycin, meropenem, and MAT protocol 4. Anemia-multifactorial in origin arising from metastatic lung cancer, recent chemotherapy, and anemia of chronic disease. Agree with transfusion because of hypoxemia and pneumonia. 5. Reactive thrombocytosis-multifactorial arising from malignancy and infection --will monitor for bleeding 6. History of recent fall with ecchymosis left flank area/ Abnormal abdominal/ pelvic CT scan --free air around bladder noted urology consult is pending; 7. Pyuria/abnormal urinalysis--follow-up results urine culture and sensitivity 8. Metastatic adenocarcinoma of the lung with metastases to bone-and enlarged lytic lesion at L5 status post recent kyphoplasty with nondiagnostic bone marrow biopsy 9. History of biopsy-proven left adrenal pheochromocytoma; AMRIK GASPAR MD August 28, 2016 16:16
--- NOTE | 2016-08-28 16:21 | Diagnostic Imaging Report ---
PROCEDURE: CT abdomen and pelvis with contrast. TECHNIQUE: Multiple contiguous axial images were obtained through the abdomen and pelvis after administration of intravenous contrast. INDICATION: Fall. Right flank bruising. CONTRAST: 100 mL of Omnipaque 350 is administered intravenously. COMPARISON: 07/04/2016 exam. FINDINGS: The lung bases demonstrate patchy consolidation concerning for pneumonia, more on the left side. The liver, the spleen, the pancreas, and the right adrenal gland appear unremarkable. The left adrenal gland demonstrates an enhancing mass measuring 2.9 x 2.3 cm. This compares to 2.6 x 2.1 cm measurements on the previous exam. The kidneys have symmetric enhancement and contrast excretion. There is no hydronephrosis. There are prominent calcifications in the renal markus bilaterally, most likely vascular. There is no significant free fluid or fluid collection in the abdomen or pelvis identified. There is, however, air density seen along the wall of the urinary bladder and in the adjacent extraperitoneal tissues anteriorly. There is probably a tiny amount of air within the bladder lumen as well. Possibilities include injury related, potentially from Guzman catheter insertion or gas-forming infection. If this is from infection, urinary bladder wall thickening would be expected to be seen which is not present in this case. Correlate with findings and difficulty of the Guzman catheter insertion. There is no pneumoperitoneum. There is no hematoma in the abdomen or pelvis. The uterus is relatively small in size with no underlying mass. There are a few sigmoid diverticula with no diverticulitis. The osseous structures demonstrate a lytic mass in the right side aspect of the L5 vertebral body with cement seen in place. It measures 3.4 x 3.2 cm and 2.6 cm craniocaudally. This is stable from 07/04/2016 exam; however, it is significantly enlarged compared to 2016 studies. There is internal fixation hardware partially visualized along the fracture site in the proximal right femur. IMPRESSION: 1. Patchy areas of consolidation in the lung bases, increased from 07/04/2016 suggestive of pneumonia. 2. Left adrenal mass measuring 2.9 cm, minimally enlarged compared to 07/04/2016. 3. Lytic mass in the L5 vertebral body, similar to 07/20/2015, but significantly larger when compared to 2016 exams. 4. Air bubbles seen in the urinary bladder wall and around it, within the extraperitoneal space. This is concerning for extraperitoneal bladder injury, potentially related to the Guzman catheter placement. Gas-forming infection is is another potential explanation although less likely. Correlate clinically. The findings were discussed with CHANDNI Jacobson at the time of dictation. Dictated by: Dictated on workstation # [id number]
[2016-08-28 16:26] LABS: SQUAMOUS EPITHELIAL CELL,UR RARE /HPF
[2016-08-28] MEDS ORDERED: RT-ALBUTEROL/IPRATROPIUM 3 ML (DUONEB) VIAL INH PRN (16:30)
[2016-08-28] MEDS: IBUPROFEN 600 MG (MOTRIN) TAB PO PRN (17:28)
[2016-08-28] MEDS ORDERED: NS IV 500 ML 500 ML ONE (18:15)
[2016-08-28] MEDS: RT-ALBUTEROL/IPRATROPIUM 3 ML (DUONEB) VIAL INH SCH (19:05)
[2016-08-28] MEDS ORDERED: VANCOMYCIN INJECTION 2,500 MG in NS IV 500 ML 500 ML IV NR (19:30)
[2016-08-28] MEDS: MEROPENEM 500 MG in NS (IVPB) 100 ML IV SCH (20:37)
[2016-08-28] MEDS ORDERED: NON-FORMULARY MEDICATION 1 EA EA (Polyethylene Glycol 3350 17 GM) PO SCH (21:00)
[2016-08-28] MEDS ORDERED: NON-FORMULARY MEDICATION 1 EA EA (Aripiprazole 10 MG) PO SCH (21:00)
[2016-08-28] MEDS ORDERED: SYSTANE EYE DROPS 15 ML (NON-FORMULARY) OP PRN (21:00)
[2016-08-28] MEDS ORDERED: RT-SYMBICORT 160/4.5 MCG INHALER PER PUFF IH SCH (21:00)
[2016-08-28] MEDS ORDERED: NON-FORMULARY MEDICATION 1 EA EA (Carvedilol 25 MG) PO SCH (21:00)
[2016-08-28] MEDS: FLUTICASONE NASAL SPRAY (FLONASE) 16 GM BTL NS SCH (21:00)
[2016-08-28] MEDS ORDERED: inSUlin DETERMIR 1 UNIT/0.01 ML (LEVEMIR) CHARGE PER UNIT SQ SCH (21:00)
[2016-08-28] MEDS ORDERED: MILK OF MAGNESIA 400 MG/5 ML 30 ML UDC PO PRN (21:00)
[2016-08-28] MEDS: NYSTATIN CREAM (MYCOSTATIN) 30 GM TUBE TP SCH (21:00)
[2016-08-28] MEDS ORDERED: ANTACID SUSP 30 ML UDC (MYLANTA) PO PRN (21:00)
--- NOTE | 2016-08-28 21:05 | History & Physicial ---
History of Present Illness History of Present Illness Reason for visit/HPI This is a 71 year old female with known metastatic lung cancer who has been undergoing chemotherapy at the cancer center. She has numerous comorbidities including COPD. She was brought to the emergency room for altered mental status , fever and hypoxia. She was found to be hypoxic with fever. She was noted to have bibasilar infiltrates on her CT scan as well as air around her bladder. She was placed on BIPAP in the emergency room and started on broad spectrum antibiotics to cover for pneumonia and UTI. She will be admitted to the ICU and oncology as well as urology will be consulted. Date of Admission August 28, 2016 at 13:46 I consulted on this patient on 08/28/16 20:59 Attending Physician Concetta Brower DO Admitting Physician Concetta Brower DO Consult Allergies and Home Medications Allergies Coded Allergies: Penicillins (Unverified Allergy, Severe, RASH, 05/11/11) Sulfa (Sulfonamide Antibiotics) (Verified Allergy, Intermediate, RASH, 04/10) cephalexin (Unverified Allergy, Intermediate, RASH, 05/11/11) amoxicillin (Verified Allergy, Mild, RASH, 05/11/11) cefaclor (Verified Allergy, Mild, RASH, 05/11/11) clindamycin (Verified Allergy, Mild, RASH, 05/11/11) lincomycin (Unverified Allergy, Mild, RASH, 05/11/11) penicillin G (Verified Allergy, Mild, RASH, 05/11/11) diphenhydramine (Verified Allergy, Unknown, 10/25/05) formoterol (Verified Allergy, Unknown, PT TAKES SYMBICORT AT HOME, 07/19/11 ) levofloxacin (Unverified Allergy, Unknown, 04/20/16) pseudoephedrine (Verified Allergy, Unknown, 10/25/05) zinc acetate (Verified Allergy, Unknown, 10/25/05) codeine (Verified Adverse Reaction, Unknown, NAUSEA, 11/14/08) Home Medications Acetaminophen 325 Mg Tablet, 650 MG PO Q4H PRN for PAIN, (Reported) TAKE 2 (325MG) TABLETS Albuterol Sulfate 2.5 Mg/3 Ml Vial.neb, 2.5 MG IH Q4H PRN for SHORTNESS OF BREATH, (Reported) Aripiprazole 20 Mg Tablet, 10 MG PO BID, (Reported) TAKES 1/2 OF A (20 MG) TABLET Aspirin 81 Mg Tab.chew, 81 MG PO DAILY, (Reported) Budesonide/Formoterol Fumarate 10.2 Gm Hfa.aer.ad, 2 PUFF IH BID, (Reported) Carvedilol 25 Mg Tablet, 25 MG PO BID, (Reported) Cyanocobalamin 1,000 Mcg/Ml Inj, 1,000 MCG IM EVERY 2 WEEKS, (Reported) Diclofenac Sodium 100 Gm Gel..gram., 4 GM TP QID, (Reported) Donepezil HCl 5 Mg Tablet, 5 MG PO HS, (Reported) Duloxetine HCl 30 Mg Capsule.dr, 30 MG PO HS, (Reported) Duloxetine HCl 60 Mg Capsule.dr, 60 MG PO BID, (Reported) Fentanyl 1 Each Patch.td72, 25 MCG TD EVERY 72 HOURS, (Reported) SCHEDULED TO BE REPLACED WITH A NEW PATCH 08/29/16 Fluticasone Propionate 16 Gm [place].susp, 2 SPRAYS NS BID, (Reported) Furosemide 40 Mg Tablet, 40 MG PO DAILY, (Reported) Guaifenesin 600 Mg Tab.er.12h, 600 MG PO BID, (Reported) Hydrocodone/Acetaminophen 1 Each Tablet, 2 TAB PO QID PRN for PAIN-MODERATE, ( Reported) Insulin Detemir 100 Unit/1 Ml Insuln.pen, 80 UNITS SC HS, (Reported) Isosorbide Mononitrate 60 Mg Tab, 60 MG PO DAILY, (Reported) HOLD IF DIASTOLIC <60 Lactobacillus Acidophilus 1 Each Capsule, 1 CAP PO DAILY, (Reported) Mag Hydrox/Al Hydrox/Simeth 355 Ml Oral.susp, 30 ML PO Q6H PRN for HEARTBURN, ( Reported) Magnesium Hydroxide 400 Mg/5 Ml Oral.susp, 30 ML PO DAILY PRN for CONSTIPATION, (Reported) Magnesium Oxide 400 Mg Tablet, 400 MG PO DAILY, (Reported) Memantine HCl 10 Mg Tablet, 10 MG PO HS, (Reported) Nystatin 15 Gm Cream..g., TP BID, (Reported) APPLY TO GROIN Ondansetron HCl 4 Mg Tablet, 4 MG PO Q4H PRN for NAUSEA/VOMITING, (Reported) Pantoprazole Sodium 40 Mg Tablet.dr, 40 MG PO BID, (Reported) Polyethylene Glycol 3350 255 Gm Powder, 17 GM PO HS, (Reported) Prednisone 10 Mg Tab, 10 MG PO HS, (Reported) Propylene Glycol/Peg 400 15 Ml Drops, 2 DROPS OU Q6H PRN for ALLERGIC RHINITIS, (Reported) Simvastatin 20 Mg Tablet, 20 MG PO HS, (Reported) Tiotropium [place] 1 Inh Aerp, 1 PUFF IH 1700, (Reported) Past Iulcspd-Agjapn-Whajif Hx Patient Social History Alcohol Use: Denies Use Recreational Drug Use: No Smoking Status: Former Smoker Former smoker/When Quit: Jul 07, 2008 Type Used: Cigarettes Physical Abuse Screen: No Sexual Abuse: No Recent Foreign Travel: No Contact w/other who traveled: No Recent Hopitalizations: Yes (MARCH 2016) Recent Infectious Disease Expo: No Immunizations Up To Date Tetanus Booster (TDap): Unknown Date of Pneumonia Vaccine: Feb 03, 2013 Date of Influenza Vaccine: Jan 24, 2016 Seasonal Allergies Seasonal Allergies: No Surgeries HX Surgeries: Yes (D&C, NECK SX) Surgeries: Cardiac Respiratory Hx Respiratory Disorders: Yes (LUNG CA, WEARS OXYGEN) Cardiovascular Hx Cardiovascular Disorders: Yes Cardiac Disorders: Coronary Artery Disease, Hypertension, Irregular Heartbeat Neurological Hx Neurological Disorders: Yes (TREMORS) Neurological Disorders: Dementia, Neuropathy Reproductive System Hx Reproductive Disorders: No Sexually Transmitted Disease: No HIV/AIDS: No Genitourinary Hx Genitourinary Disorders: Yes Genitourinary Disorders: UTI-Chronic Gastrointestinal Hx Gastrointestinal Disorders: Yes Gastrointestinal Disorders: Gastroesophageal Reflux, Chronic Constipation, Hiatal Hernia Musculoskeletal Hx Musculoskeletal Disorders: Yes (CHRONIC GENERALIZED PAIN, PMR, NON- AMBULATORY - USES WHEELCHAIR/OCC. 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) Cancer: Lung Psychosocial Hx Psychiatric Problems: Yes (HALLUCINATIONS) Behavioral Health Disorders: Anxiety, Bipolar, Schizophrenia, Depression Integumentary HX Skin/Integumentary Disorder: Yes Skin/Integumentary Disorders: Pruritis Blood Transfusions Hx Blood Disorders: Yes (IRON DEF ANEMIA) Adverse Reaction to a Blood Tr: No Family Medical History Family Hx: Arthritis 19 MOTHER Cardiovascular disease 19 MOTHER Cataracts 19 MOTHER Completed stroke 19 MOTHER Dementia 19 MOTHER Drug abuse son Fibrocystic disease of breast daughter Hypertension 19 MOTHER Neoplasm 19 FATHER Severe allergy 19 MOTHER daughter son Constitutional: fever, weakness EENTM: No blurred vision, No dental problems, No double vision, No ear discharge, No ear pain, No epistaxis, No eye pain, No hearing loss, No hoarseness, No mouth pain, No mouth swelling, No no symptoms reported, No nose congestion, No nose pain, No other, No see HPI, No tearing, No throat pain, No throat swelling, No vision loss Respiratory: cough, dyspnea on exertion, short of breath Cardiovascular: No no symptoms reported, No see HPI, No chest pain, No edema, No Hx of Intervention, No palpitations, No syncope, No vascular heart diseas, No other Gastrointestinal: constipation Genitourinary: No no symptoms reported, No see HPI, No decreased output, No discharge, No dysuria, No frequency, No hematuria, No hesitancy, No incontinence , No nocturia, No pain, No other Musculoskeletal: back pain, joint pain, muscle weakness Skin: No no symptoms reported, No see HPI, No change in color, No change in hair/nails, No dryness, No hx of skin cancer, No lesions, No lumps, No pruritus , No rash, No other Psychiatric/Neurological: Anxiety, Depressed, Emotional Problems, Paresthesia, Weakness Physical Exam Vital Signs Vital Sign - Last 12Hours 08/28/16 08/28/16 12:32 13:30 Temp 101.7 Pulse 103 Resp 25 B/P (MAP) 132/80 Pulse Ox 96 O2 Delivery Nasal Cannula O2 Flow Rate 30.00 Capillary Refill : Less Than 3 Seconds General Appearance: Moderate Distress (due to pain) HEENT: Normal ENT Inspection Neck: Supple Respiratory: Crackles (bases), Decreased Breath Sounds Cardiovascular: Regular Rate, Rhythm, Systolic Murmur Gastrointestinal: Normal Bowel Sounds, Soft, Tenderness (left lower quadrant and suprapubic) Rectal: Deferred Back: Vertebral Tenderness Extremity: Non Tender, No Calf Tenderness, No Pedal Edema Neurologic/Psychiatric: Alert, Motor Weakness (generalized) Skin: Normal Color, Warm/Dry Comments Laboratory Tests 08/28/16 12:40: White Blood Count 8.8, Red Blood Count 2.83L, Hemoglobin 7.8L, Hematocrit 26L, Mean Corpuscular Volume 90, Mean Corpuscular Hemoglobin 28, Mean Corpuscular Hemoglobin Concent 31L, Red Cell Distribution Width 18.7H, Platelet Count 687H, Mean Platelet Volume 10.3, Neutrophils (%) (Auto) 73, Lymphocytes (%) (Auto) 21 , Monocytes (%) (Auto) 5, Eosinophils (%) (Auto) 1, Basophils (%) (Auto) 1, Neutrophils # (Auto) 6.4, Lymphocytes # (Auto) 1.9, Monocytes # (Auto) 0.4, Eosinophils # (Auto) 0.1, Basophils # (Auto) 0.0, Sodium Level 136, Potassium Level 4.8, Chloride Level 95L, Carbon Dioxide Level 25, Anion Gap 16H, Blood Urea Nitrogen 29H, Creatinine 1.00, Estimat Glomerular Filtration Rate 55, BUN/ Creatinine Ratio 29, Glucose Level 134H, Lactic Acid Level 3.43*H, Calcium Level 9.2, Total Bilirubin 0.4, Aspartate Amino Transf (AST/SGOT) 16, Alanine Aminotransferase (ALT/SGPT) 19, Alkaline Phosphatase 104, Troponin I < 0.30, B- Type Natriuretic Peptide 82.2, Total Protein 7.8, Albumin 3.6 08/28/16 12:43: Blood Gas Puncture Site RT RAD, Blood Gas Patient Temperature 101.7, Arterial Blood pH 7.43, Arterial Blood Partial Pressure CO2 44, Arterial Blood Partial Pressure O2 74L, Arterial Blood HCO3 28H, Arterial Blood Total CO2 29.5, Arterial Blood Oxygen Saturation 93L, Arterial Blood Base Excess 4.5H, [place] Test YES-POS, Blood Gas Ventilator Setting NO, Blood Gas Inspired Oxygen 10 GA RT 08/28/16 12:50: Urine Color YELLOW, Urine Clarity CLEAR, Urine pH 6, Urine Specific [place] 1.010L, Urine Protein 2+H, Urine Glucose (UA) NEGATIVE, Urine Ketones NEGATIVE, Urine Nitrite NEGATIVE, Urine Bilirubin NEGATIVE, Urine Urobilinogen NORMAL, Urine Leukocyte Esterase 1+H, Urine RBC (Auto) NEGATIVE, Urine RBC RARE, Urine WBC 5-10H, Urine Crystals NONE, Urine Bacteria LARGEH, Urine Casts NONE, Urine Mucus NEGATIVE, Urine Culture Indicated YES 08/28/16 15:50: Lactic Acid Level 0.98 08/28/16 16:00: Urine Color YELLOW, Urine Clarity CLEAR, Urine pH 7, Urine Specific [place] 1.010L, Urine Protein NEGATIVE, Urine Glucose (UA) NEGATIVE, Urine Ketones NEGATIVE, Urine Nitrite NEGATIVE, Urine Bilirubin NEGATIVE, Urine Urobilinogen NORMAL, Urine Leukocyte Esterase 1+H, Urine RBC (Auto) 1+H, Urine RBC 0-2, Urine WBC 5-10H, Urine Squamous Epithelial Cells RARE, Urine Crystals NONE, Urine Bacteria TRACE, Urine Casts NONE, Urine Mucus NEGATIVE, Urine Culture Indicated YES Assessment/Plan Assessment and Plan 1. Acute Respiratory Distress with Acute Hypoxia--admitted initially on BIPAP to ICU but currently on oxygen via nasal cannula 2. Bibasilar Pneumonia--covered with Levaquin, meropenem and vancomycin pending sputum and urine culture results 3. UTI with free air around urinary bladder--cover with above antibiotics and consult urology 4. Metastatic Lung Cancer--oncology consulted 5. Diabetes mellitus--insulin requiring--start back on levemir with ICU SSI 6. Hypertension--resume home medications 7. COPD with acute exacerbation--on SVNS and IV solumedrol started 8. Chronic Pain--restart fentanyl patch with hydrocodone prn 9. Anxiety/Depression/Mood Disorder--resume home medications Problems: Clinical Quality Measures DVT/VTE Risk/Contraindication: Risk Factor Score Per Nursin RFS Level Per Nursing on Admit: 3=High CONCETTA BROWER DO August 28, 2016 21:04
[2016-08-28] MEDS ORDERED: POLYETHYLENE GLYCOL 17 GM (MIRALAX) PACK ONE (22:06)
[2016-08-28] MEDS ORDERED: ARIPIPRAZOLE 10 MG (ABILIFY) TAB ONE (22:08)
[2016-08-28] MEDS: PANTOPRAZOLE 40 MG (PROTONIX) TAB PO SCH (22:20)
[2016-08-28] MEDS: SIMvastatin 20 MG (ZOCOR) TAB PO SCH (22:21)
[2016-08-28] MEDS: fentaNYL PATCH 25 MCG (DURAGESIC) TD SCH (22:22)
[2016-08-28] MEDS: DULoxetine 30 MG (CYMBALTA) CAP PO SCH (22:31)
[2016-08-28] MEDS: HYDROcodone/APAP 10 MG/325 MG (LORTAB) TAB PO PRN (22:33)
[2016-08-28] MEDS ORDERED: CARVEDILOL 12.5 MG (COREG) TABLET ONE (22:51)
[2016-08-28] MEDS ORDERED: MEMANTINE 5 MG (NAMENDA) TABLET ONE (22:51)
[2016-08-28] MEDS: DONEPEZIL 5 MG (ARICEPT) TAB PO SCH (23:01)
[2016-08-28] MEDS: MEMANTINE 10 MG (NAMENDA) TABLET PO SCH (23:01)
[2016-08-29] VITALS (24 sets, daily range): BP systolic 119–213; BP diastolic 68–119
[2016-08-29] MEDS: MEROPENEM 500 MG in NS (IVPB) 100 ML IV SCH ×4 (01:07→18:02)
[2016-08-29 04:38] LABS: BASOPHILS % (AUTO) 1 % (0-10); EOSINOPHILS % (AUTO) 0 % (0-10); LYMPHOCYTES # (AUTO) 1.4 X 10^3 (1.0-4.0); LYMPHOCYTES % (AUTO) 22 % (12-44); MEAN CORPUSCULAR HEMOGLOBIN 28 PG (25-34); MEAN CORPUSCULAR HGB CONC 31 G/DL (32-36); MEAN CORPUSCULAR VOLUME 89 FL (80-99); MONOCYTES # (AUTO) 0.3 X 10^3 (0.0-1.0); MONOCYTES % (AUTO) 4 % (0-12); NEUTROPHILS # (AUTO) 4.7 X 10^3 (1.8-7.8); NEUTROPHILS % (AUTO) 74 % (42-75); PLATELET COUNT 489 10^3/uL (130-400); RED BLOOD COUNT 2.85 10^6/uL (4.35-5.85); RED CELL DISTRIBUTION WIDTH 17.6 % (10.0-14.5); WHITE BLOOD COUNT 6.3 10^3/uL (4.3-11.0)
[2016-08-29] MEDS: HYDROcodone/APAP 10 MG/325 MG (LORTAB) TAB PO PRN ×5 (04:40→23:15)
[2016-08-29 04:59] LABS: CREATININE SERUM 0.92 MG/DL (0.60-1.30); POTASSIUM 4.1 MMOL/L (3.6-5.0)
[2016-08-29 05:00] LABS: CALCIUM 8.8 MG/DL (8.5-10.1); MAGNESIUM 2.1 MG/DL (1.8-2.4)
[2016-08-29] MEDS: POTASSIUM CL 10MEQ/50ML IVPB 50 ML IV SCH (06:00)
[2016-08-29] MEDS: MAGNESIUM 1 GM/100 ML IVPB 100 ML IV SCH (06:00)
[2016-08-29] MEDS: KCL 20 MEQ TAB (K-DUR) PO SCH (06:00)
[2016-08-29] MEDS: methylPREDNISolone 40 MG/ML (Solu-MEDROL) VIAL IV SCH ×3 (06:32→22:30)
[2016-08-29] MEDS: NS IV 1000 ML 1,000 ML IV SCH ×2 (07:20→17:54)
--- NOTE | 2016-08-29 07:32 | Diagnostic Imaging Report ---
EXAM: CHEST 1 VIEW, AP/PA ONLY INDICATION: Hypoxia. COMPARISON: Chest radiographs 08/28/2016. FINDINGS: Since yesterday, there is improved aeration of the lungs. There is some mild residual atelectasis and/or infiltrate in the lung bases. Normal heart size and pulmonary vascularity. Calcified aorta. Persistent prominence of the interstitium. Tunneled right IJ port CVC tip low SVC. No pleural effusion or pneumothorax. Postoperative changes in the lower cervical spine. IMPRESSION: Improved aeration since yesterday. There is some persistent atelectasis and or infiltrate in the lung bases. Dictated by: Dictated on workstation # [id number]
[2016-08-29] MEDS: RT-ALBUTEROL/IPRATROPIUM 3 ML (DUONEB) VIAL INH SCH ×3 (07:54→18:33)
[2016-08-29] MEDS: VANCOMYCIN 1,750 MG/NS 500 ML IVPB IV SCH ×4 (07:55→18:38)
[2016-08-29] MEDS: CARVEDILOL 12.5 MG (COREG) TABLET PO SCH ×2 (07:55→15:59)
[2016-08-29] MEDS: inSUlin (REGULAR) HUMAN 1 UNIT/0.01 ML (CHARGE PER UNIT) SC SCH ×4 (07:57→21:11)
[2016-08-29] MEDS: ARIPIPRAZOLE 10 MG (ABILIFY) TAB PO SCH ×2 (08:16→21:00)
[2016-08-29] MEDS: ISOSORBIDE MONONITRATE 60 MG (IMDUR) TAB PO SCH (08:16)
[2016-08-29] MEDS: LACTOBACILLUS Acidoph/Bulgar (LACTINEX/FLORANEX) TAB PO SCH (08:16)
[2016-08-29] MEDS: MAGNESIUM OXIDE (MAG-OX)400 MG TAB PO SCH (08:16)
[2016-08-29] MEDS: PANTOPRAZOLE 40 MG (PROTONIX) TAB PO SCH ×2 (08:17→21:00)
[2016-08-29] MEDS: ASPIRIN 81 MG CHEW (CHILDREN'S ASA) PO SCH (08:17)
[2016-08-29] MEDS: FUROSEMIDE 40 MG (LASIX) TAB PO SCH (08:17)
[2016-08-29] MEDS ORDERED: RT-ADVAIR HFA 115/21 MCG PER PUFF IH ONE ×2 (09:59→18:36)
[2016-08-29] MEDS: ADVAIR HFA 115/21 MCG INHALER 8 GM IH SCH ×2 (09:59→18:36)
[2016-08-29] MEDS: UMECLIDINIUM BROMIDE (INCRUSE ELLIPTA) 7'S IH SCH (10:05)
[2016-08-29] MEDS: NYSTATIN CREAM (MYCOSTATIN) 30 GM TUBE TP SCH ×2 (10:10→21:14)
[2016-08-29] MEDS: FLUTICASONE NASAL SPRAY (FLONASE) 16 GM BTL NS SCH ×2 (10:10→21:00)
[2016-08-29] MEDS ORDERED: amLODIPine 5 MG (NORVASC) TAB PO NR ×2 (10:30→12:35)
[2016-08-29] MEDS ORDERED: cloNIDine 0.1 MG (CATAPRES) TAB PO NR ×2 (10:30→12:37)
[2016-08-29] MEDS ORDERED: ARTIFICAL TEARS 0.4 ML UNIT DOSE (REFRESH PLUS) OU PRN (12:45)
--- NOTE | 2016-08-29 15:57 | CONSULTATION REPORT ---
DATE OF SERVICE: 08/29/2016 ATTENDING PHYSICIAN: Dr. Brower, Dr. Mccauley. SUMMARY: A 71-year-old white lady who has seen in the past, has not seen me for few years, was seen before for a history of UTI and incontinence, was admitted to the emergency room with pneumonia and UTI. Catheter was inserted; she was started on IV antibiotics, and admitted to the ICU. The patient is not a great historian. She complains of lethargic and is on medications. She still admits to UTIs and incontinence. Her CT scan showed some air in and around the bladder wall. No gross hematuria. IMPRESSION: Urinary tract infection, question gas-forming organism, doubt emphysematous cystitis or trauma. PLAN: Continue present management. May repeat CT scan of the pelvis in few days. Job ID: [id number] DocumentID: [id number] Dictated Date: 08/29/2016 11:58:59 Desktop Support Specialist Date: 08/29/2016 14:24:57 Dictated By: PAVEL YOUNG MD
[2016-08-29] MEDS: LOSARTAN 50 MG (COZAAR) TAB PO SCH (15:59)
[2016-08-29] MEDS ORDERED: TIOTROPIUM BROMIDE (SPIRIVA) 5'S INHALER IH SCH (17:00)
[2016-08-29] MEDS: cloNIDine 0.2 MG PATCH (CATAPRES TTS) TDSY TD SCH (17:17)
--- NOTE | 2016-08-29 18:00 | Progress Note (SOAP) ---
Subjective Subjective/Events-last exam Fwup bibasilar pneumonia, respiratory distress with hypoxia, UTI, COPD exacerbation, acute on chronic anemia, lung cancer with mets. Cough but nonproductive. Pain much better. Objective Exam Vital Signs Date Time Temp Pulse Resp B/P (MAP) Pulse Ox O2 Delivery O2 Flow Rate FiO2 08/29/16 16:09 96 4.00 08/29/16 16:00 67 18 119/87 96 Nasal Cannula 4.00 08/29/16 15:00 89 17 180/116 Nasal Cannula 4.00 08/29/16 14:00 64 19 192/92 94 Nasal Cannula 4.00 08/29/16 13:00 80 26 183/100 Nasal Cannula 4.00 08/29/16 13:00 68 08/29/16 12:56 96 4.00 08/29/16 12:00 61 12 177/97 94 Nasal Cannula 4.00 08/29/16 12:00 96 4.00 08/29/16 11:00 60 8 205/116 95 Nasal Cannula 4.00 08/29/16 10:00 65 14 200/111 93 Nasal Cannula 4.00 08/29/16 09:00 64 12 198/112 95 Nasal Cannula 4.00 08/29/16 08:00 96 4.00 08/29/16 08:00 60 13 133/91 99 Nasal Cannula 4.00 08/29/16 08:00 96 4.00 08/29/16 07:00 64 11 180/96 96 Nasal Cannula 4.00 08/29/16 07:00 61 08/29/16 06:00 64 11 177/92 95 Nasal Cannula 4.00 08/29/16 05:00 87 18 144/83 97 Nasal Cannula 4.00 08/29/16 04:00 96.9 75 15 145/70 86 Nasal Cannula 4.00 08/29/16 04:00 97 4.00 08/29/16 03:00 79 13 136/91 93 Nasal Cannula 4.00 08/29/16 02:00 77 13 133/68 93 Nasal Cannula 4.00 08/29/16 01:00 76 12 141/73 93 Nasal Cannula 4.00 08/29/16 01:00 76 08/29/16 00:00 97.5 83 17 162/75 96 Nasal Cannula 4.00 08/29/16 00:00 97 4.00 08/28/16 23:00 93 15 160/75 97 Nasal Cannula 4.00 08/28/16 22:00 90 16 135/96 96 Nasal Cannula 4.00 08/28/16 21:00 86 18 100/52 96 Nasal Cannula 4.00 08/28/16 20:20 98.4 85 17 110/86 94 4.00 08/28/16 20:00 97 4.00 08/28/16 20:00 97.4 80 14 126/118 89 Nasal Cannula 4.00 08/28/16 19:06 96 4.00 08/28/16 19:00 77 23 113/63 95 Nasal Cannula 2.00 08/28/16 19:00 77 08/28/16 18:39 97.8 82 14 99/48 100 2.00 08/28/16 18:24 98.8 84 13 117/67 2.00 08/28/16 18:00 81 11 101/75 96 Nasal Cannula 2.00 I & O 08/29/16 07:00 Intake Total 2459 ml Output Total 4300 ml Balance -1841 ml Capillary Refill : Less Than 3 Seconds General Appearance: No Apparent Distress Neck: Supple Respiratory: Crackles, Decreased Breath Sounds Cardiovascular: Regular Rate, Rhythm, Systolic Murmur Gastrointestinal: normal bowel sounds, non tender, soft Extremity: Non Tender, No Calf Tenderness, No Pedal Edema Neurologic/Psychiatric: Alert Results Lab Laboratory Tests 08/28/16 22:36: Glucometer 434*H 08/29/16 04:30: White Blood Count 6.3, Red Blood Count 2.85L, Hemoglobin 7.9L, Hematocrit 25L, Mean Corpuscular Volume 89, Mean Corpuscular Hemoglobin 28, Mean Corpuscular Hemoglobin Concent 31L, Red Cell Distribution Width 17.6H, Platelet Count 489H, Mean Platelet Volume 10.0, Neutrophils (%) (Auto) 74, Lymphocytes (%) (Auto) 22 , Monocytes (%) (Auto) 4, Eosinophils (%) (Auto) 0, Basophils (%) (Auto) 1, Neutrophils # (Auto) 4.7, Lymphocytes # (Auto) 1.4, Monocytes # (Auto) 0.3, Eosinophils # (Auto) 0.0, Basophils # (Auto) 0.0, Sodium Level 138, Potassium Level 4.1, Chloride Level 99, Carbon Dioxide Level 26, Anion Gap 13, Blood Urea Nitrogen 23H, Creatinine 0.92, Estimat Glomerular Filtration Rate 60, BUN/ Creatinine Ratio 25, Glucose Level 305H, Calcium Level 8.8, Magnesium Level 2.1 08/29/16 12:09: Glucometer 357H 08/29/16 17:08: Glucometer 504*H Microbiology 08/28/16 Blood Culture - Preliminary, Resulted No growth 08/28/16 Urine Culture - Preliminary, Resulted Escherichia Coli Assessment/Plan Assessment/Plan Assess & Plan/Chief Complaint 1. Bibasilar pneumonia--continue triple abx 2. Acute Respiratory Distress with Acute Hypoxia--on NC 3. COPD exacerbation--wean solumedrol 4. UTI--continue abx and await urine cx results 5. Acute on Chronic Anemia--S/P transfusion--will repeat CBC in AM 6. Uncontrolled DM--insulin requiring--increase levemir dose 7. Uncontrolled HTN--add amlodopine and catapres patch 8. Chronic Pain--improved with fentanyl patch Clinical Quality Measures DVT/VTE Risk/Contraindication: Risk Factor Score Per Nursin RFS Level Per Nursing on Admit: 3=High CHRISTIAN SALES DO August 29, 2016 6:00 pm
--- NOTE | 2016-08-29 18:06 | Progress Note (SOAP) ---
Subjective Subjective/Events-last exam She states she is feeling much better, but still complains of nonproductive cough; Objective Exam Vital Signs Date Time Temp Pulse Resp B/P (MAP) Pulse Ox O2 Delivery O2 Flow Rate FiO2 08/29/16 16:09 96 4.00 08/29/16 16:00 67 18 119/87 96 Nasal Cannula 4.00 08/29/16 15:00 89 17 180/116 Nasal Cannula 4.00 08/29/16 14:00 64 19 192/92 94 Nasal Cannula 4.00 08/29/16 13:00 80 26 183/100 Nasal Cannula 4.00 08/29/16 13:00 68 08/29/16 12:56 96 4.00 08/29/16 12:00 61 12 177/97 94 Nasal Cannula 4.00 08/29/16 12:00 96 4.00 08/29/16 11:00 60 8 205/116 95 Nasal Cannula 4.00 08/29/16 10:00 65 14 200/111 93 Nasal Cannula 4.00 08/29/16 09:00 64 12 198/112 95 Nasal Cannula 4.00 08/29/16 08:00 96 4.00 08/29/16 08:00 60 13 133/91 99 Nasal Cannula 4.00 08/29/16 08:00 96 4.00 08/29/16 07:00 64 11 180/96 96 Nasal Cannula 4.00 08/29/16 07:00 61 08/29/16 06:00 64 11 177/92 95 Nasal Cannula 4.00 08/29/16 05:00 87 18 144/83 97 Nasal Cannula 4.00 08/29/16 04:00 96.9 75 15 145/70 86 Nasal Cannula 4.00 08/29/16 04:00 97 4.00 08/29/16 03:00 79 13 136/91 93 Nasal Cannula 4.00 08/29/16 02:00 77 13 133/68 93 Nasal Cannula 4.00 08/29/16 01:00 76 12 141/73 93 Nasal Cannula 4.00 08/29/16 01:00 76 08/29/16 00:00 97.5 83 17 162/75 96 Nasal Cannula 4.00 08/29/16 00:00 97 4.00 08/28/16 23:00 93 15 160/75 97 Nasal Cannula 4.00 08/28/16 22:00 90 16 135/96 96 Nasal Cannula 4.00 08/28/16 21:00 86 18 100/52 96 Nasal Cannula 4.00 08/28/16 20:20 98.4 85 17 110/86 94 4.00 08/28/16 20:00 97 4.00 08/28/16 20:00 97.4 80 14 126/118 89 Nasal Cannula 4.00 08/28/16 19:06 96 4.00 08/28/16 19:00 77 23 113/63 95 Nasal Cannula 2.00 08/28/16 19:00 77 08/28/16 18:39 97.8 82 14 99/48 100 2.00 08/28/16 18:24 98.8 84 13 117/67 2.00 08/28/16 18:00 81 11 101/75 96 Nasal Cannula 2.00 I & O 08/29/16 07:00 Intake Total 2459 ml Output Total 4300 ml Balance -1841 ml Capillary Refill : Less Than 3 Seconds General Appearance: No Apparent Distress, Obese HEENT: PERRL/EOMI Neck: Non Tender, Supple Respiratory: Crackles (at bases;) Cardiovascular: Regular Rate, Rhythm, No Gallop, No JVD Gastrointestinal: normal bowel sounds, non tender, soft, other (obese abdomen) Neurologic/Psychiatric: Alert, Oriented x3, No Motor/Sensory Deficits Results Lab Laboratory Tests 08/28/16 22:36: Glucometer 434*H 08/29/16 04:30: White Blood Count 6.3, Red Blood Count 2.85L, Hemoglobin 7.9L, Hematocrit 25L, Mean Corpuscular Volume 89, Mean Corpuscular Hemoglobin 28, Mean Corpuscular Hemoglobin Concent 31L, Red Cell Distribution Width 17.6H, Platelet Count 489H, Mean Platelet Volume 10.0, Neutrophils (%) (Auto) 74, Lymphocytes (%) (Auto) 22 , Monocytes (%) (Auto) 4, Eosinophils (%) (Auto) 0, Basophils (%) (Auto) 1, Neutrophils # (Auto) 4.7, Lymphocytes # (Auto) 1.4, Monocytes # (Auto) 0.3, Eosinophils # (Auto) 0.0, Basophils # (Auto) 0.0, Sodium Level 138, Potassium Level 4.1, Chloride Level 99, Carbon Dioxide Level 26, Anion Gap 13, Blood Urea Nitrogen 23H, Creatinine 0.92, Estimat Glomerular Filtration Rate 60, BUN/ Creatinine Ratio 25, Glucose Level 305H, Calcium Level 8.8, Magnesium Level 2.1 08/29/16 12:09: Glucometer 357H 08/29/16 17:08: Glucometer 504*H Microbiology 08/28/16 Blood Culture - Preliminary, Resulted No growth 08/28/16 Urine Culture - Preliminary, Resulted Escherichia Coli Assessment/Plan Assessment/Plan Assess & Plan/Chief Complaint 1. Escherichia coli UTI, sensitive to meropenem; Fever-has resolved since antibiotics were given; 2. Altered mental status--appears much mentally cleared today; 3. Bilateral Pneumonia--improved on IV vancomycin, meropenem, and MAT protocol 4. Anemia-multifactorial in origin arising from metastatic lung cancer, recent chemotherapy, and anemia of chronic disease. Hemoglobin is 7.9 after receiving 1 unit packed RBCs. a. Check CBC in a.m. and if hemoglobin less than 7.8 we'll transfuse. 5. Reactive thrombocytosis-multifactorial arising from malignancy and infection --platelet count improved with IV antibiotics. 6. Abnormal abdominal/pelvic CT scan --free air around bladder noted urology is following; 7. Uncontrolled hypertension related to known pheochromocytoma-improved with antihypertensive medications. 8. Uncontrolled Diabetes--Dr. Brower is managing 9. 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 History of biopsy-proven left adrenal pheochromocytoma; Clinical Quality Measures DVT/VTE Risk/Contraindication: Risk Factor Score Per Nursin RFS Level Per Nursing on Admit: 3=AMRIK Duff MD August 29, 2016 18:06
[2016-08-29] MEDS: DONEPEZIL 5 MG (ARICEPT) TAB PO SCH (21:00)
[2016-08-29] MEDS ORDERED: inSUlin DETERMIR 1 UNIT/0.01 ML (LEVEMIR) CHARGE PER UNIT SQ SCH (21:00)
[2016-08-29] MEDS: SIMvastatin 20 MG (ZOCOR) TAB PO SCH (21:00)
[2016-08-29] MEDS: MEMANTINE 10 MG (NAMENDA) TABLET PO SCH (21:00)
[2016-08-29] MEDS: POLYETHYLENE GLYCOL 17 GM (MIRALAX) PACK PO SCH (21:00)
[2016-08-29] MEDS: DULoxetine 30 MG (CYMBALTA) CAP PO SCH (21:00)
[2016-08-30] VITALS (14 sets, daily range): BP systolic 106–189; BP diastolic 80–103
[2016-08-30] MEDS: MEROPENEM 500 MG in NS (IVPB) 100 ML IV SCH ×5 (00:36→23:55)
[2016-08-30] MEDS ORDERED: meTOprolol 5 MG/5 ML (LOPRESSOR) VIAL IV ONE (01:45)
[2016-08-30] MEDS ORDERED: hydrALAZINE (APESOLINE) 20 MG/ML VIAL IV ONE ×2 (01:45)
[2016-08-30 04:31] LABS: BASOPHILS # (AUTO) 0.5 10^3/uL (0.0-0.1); BASOPHILS % (AUTO) 3 % (0-10); EOSINOPHILS % (AUTO) 0 % (0-10); LYMPHOCYTES # (AUTO) 2.3 X 10^3 (1.0-4.0); LYMPHOCYTES % (AUTO) 12 % (12-44); MEAN CORPUSCULAR HEMOGLOBIN 28 PG (25-34); MEAN CORPUSCULAR HGB CONC 32 G/DL (32-36); MEAN CORPUSCULAR VOLUME 88 FL (80-99); MEAN PLATELET VOLUME 9.7 FL (7.4-10.4); MONOCYTES # (AUTO) 1.2 X 10^3 (0.0-1.0); MONOCYTES % (AUTO) 7 % (0-12); NEUTROPHILS # (AUTO) 14.4 X 10^3 (1.8-7.8); NEUTROPHILS % (AUTO) 79 % (42-75); PLATELET COUNT 594 10^3/uL (130-400); RED BLOOD COUNT 3.35 10^6/uL (4.35-5.85); RED CELL DISTRIBUTION WIDTH 18.1 % (10.0-14.5); WHITE BLOOD COUNT 18.3 10^3/uL (4.3-11.0)
[2016-08-30 04:50] LABS: CALCIUM 9.4 MG/DL (8.5-10.1); CREATININE SERUM 0.94 MG/DL (0.60-1.30); POTASSIUM 4.1 MMOL/L (3.6-5.0)
[2016-08-30 05:07] LABS: BAND NEUTROPHILS 5 %; LYMPHOCYTES % (MANUAL) 19 %; NEUTROPHILS % (MANUAL) 75 %
[2016-08-30] MEDS: HYDROcodone/APAP 10 MG/325 MG (LORTAB) TAB PO PRN ×4 (05:33→20:52)
[2016-08-30] MEDS: MAGNESIUM 1 GM/100 ML IVPB 100 ML IV SCH (06:00)
[2016-08-30] MEDS ORDERED: TROUGH ORDER-PHARMACY XX NR (06:00)
[2016-08-30] MEDS: POTASSIUM CL 10MEQ/50ML IVPB 50 ML IV SCH (06:00)
[2016-08-30] MEDS: KCL 20 MEQ TAB (K-DUR) PO SCH (06:00)
[2016-08-30] MEDS: methylPREDNISolone 40 MG/ML (Solu-MEDROL) VIAL IV SCH ×3 (06:10→20:54)
[2016-08-30] MEDS: ADVAIR HFA 115/21 MCG INHALER 8 GM IH SCH ×2 (06:55→20:15)
[2016-08-30] MEDS ORDERED: RT-ADVAIR HFA 115/21 MCG PER PUFF IH ONE ×3 (06:55→20:15)
[2016-08-30] MEDS: UMECLIDINIUM BROMIDE (INCRUSE ELLIPTA) 7'S IH SCH (06:56)
[2016-08-30] MEDS: RT-ALBUTEROL/IPRATROPIUM 3 ML (DUONEB) VIAL INH SCH ×3 (06:56→20:14)
[2016-08-30] MEDS: VANCOMYCIN 1,750 MG/NS 500 ML IVPB IV SCH ×2 (07:00)
[2016-08-30] MEDS: inSUlin (REGULAR) HUMAN 1 UNIT/0.01 ML (CHARGE PER UNIT) SC SCH ×4 (07:15→21:00)
[2016-08-30] MEDS: CARVEDILOL 12.5 MG (COREG) TABLET PO SCH ×2 (07:16→15:26)
[2016-08-30] MEDS: ARIPIPRAZOLE 10 MG (ABILIFY) TAB PO SCH ×2 (09:35→20:53)
[2016-08-30] MEDS: FUROSEMIDE 40 MG (LASIX) TAB PO SCH (09:35)
[2016-08-30] MEDS: ISOSORBIDE MONONITRATE 60 MG (IMDUR) TAB PO SCH (09:35)
[2016-08-30] MEDS: PANTOPRAZOLE 40 MG (PROTONIX) TAB PO SCH ×2 (09:35→20:52)
[2016-08-30] MEDS: MAGNESIUM OXIDE (MAG-OX)400 MG TAB PO SCH (09:36)
[2016-08-30] MEDS: LACTOBACILLUS Acidoph/Bulgar (LACTINEX/FLORANEX) TAB PO SCH (09:36)
[2016-08-30] MEDS: ASPIRIN 81 MG CHEW (CHILDREN'S ASA) PO SCH (09:36)
[2016-08-30] MEDS: FLUTICASONE NASAL SPRAY (FLONASE) 16 GM BTL NS SCH ×2 (09:47→21:06)
[2016-08-30] MEDS: NYSTATIN CREAM (MYCOSTATIN) 30 GM TUBE TP SCH ×2 (09:47→21:02)
[2016-08-30] MEDS ORDERED: METHYLNALTREXONE 12 MG/0.6 ML (RELISTOR) VIAL SQ NR (13:32)
--- NOTE | 2016-08-30 14:03 | Progress Note (SOAP) ---
Subjective Subjective/Events-last exam Reports constipation and abdominal pain. Objective Exam Vital Signs Date Time Temp Pulse Resp B/P (MAP) Pulse Ox O2 Delivery O2 Flow Rate FiO2 08/30/16 07:00 102 08/30/16 07:00 95 5.00 08/30/16 06:58 95 5.00 08/30/16 06:57 95 5.00 08/30/16 06:00 93 14 178/96 96 Nasal Cannula 5.00 08/30/16 05:00 90 11 176/92 96 Nasal Cannula 5.00 08/30/16 04:00 96 5.00 08/30/16 04:00 97.0 96 14 161/80 94 Nasal Cannula 5.00 08/30/16 03:00 93 17 177/86 94 Nasal Cannula 5.00 08/30/16 02:00 69 14 163/88 95 Nasal Cannula 5.00 08/30/16 01:00 70 08/30/16 01:00 70 14 189/103 96 Nasal Cannula 5.00 08/30/16 00:00 97.3 72 18 180/85 96 Nasal Cannula 5.00 08/30/16 00:00 96 5.00 08/29/16 23:00 86 15 192/99 99 Nasal Cannula 5.00 08/29/16 22:00 74 11 194/111 92 Nasal Cannula 5.00 08/29/16 21:00 76 16 183/100 98 Nasal Cannula 5.00 08/29/16 20:00 96.8 80 15 189/97 89 Nasal Cannula 5.00 08/29/16 20:00 98 5.00 08/29/16 19:00 73 08/29/16 19:00 73 16 200/96 77 Nasal Cannula 4.00 08/29/16 18:33 93 5.00 08/29/16 18:00 72 12 199/107 94 Nasal Cannula 4.00 08/29/16 17:00 76 20 213/119 93 Nasal Cannula 4.00 08/29/16 16:09 96 4.00 08/29/16 16:00 67 18 119/87 96 Nasal Cannula 4.00 08/29/16 15:00 89 17 180/116 Nasal Cannula 4.00 08/29/16 14:00 64 19 192/92 94 Nasal Cannula 4.00 I & O 08/30/16 07:00 Intake Total 5339 ml Output Total 7850 ml Balance -2511 ml Capillary Refill : Less Than 3 Seconds General Appearance: Mild Distress, Obese HEENT: PERRL/EOMI Neck: Supple Respiratory: Crackles Cardiovascular: Regular Rate, Rhythm Gastrointestinal: normal bowel sounds, soft Neurologic/Psychiatric: Alert, Oriented x3, circulator II-XII Norm as Tested Results Lab Laboratory Tests 08/30/16 04:25 Laboratory Tests 08/29/16 17:08: Glucometer 504*H 08/29/16 21:06: Glucometer 415*H 08/30/16 04:25: White Blood Count 18.3H, Red Blood Count 3.35L, Hemoglobin 9.5#L, Hematocrit 30L , Mean Corpuscular Volume 88, Mean Corpuscular Hemoglobin 28, Mean Corpuscular Hemoglobin Concent 32, Red Cell Distribution Width 18.1H, Platelet Count 594H, Mean Platelet Volume 9.7, Neutrophils (%) (Auto) 79H, Lymphocytes (%) (Auto) 12 , Monocytes (%) (Auto) 7, Eosinophils (%) (Auto) 0, Basophils (%) (Auto) 3, Neutrophils # (Auto) 14.4H, Lymphocytes # (Auto) 2.3, Monocytes # (Auto) 1.2H, Eosinophils # (Auto) 0.0, Basophils # (Auto) 0.5H, Neutrophils % (Manual) 75, Lymphocytes % (Manual) 19, Monocytes % (Manual) 1, Band Neutrophils 5, Hypersegmented Neutrophils MODERATE, Blood Morphology Comment NORMAL, Sodium Level 137, Potassium Level 4.1, Chloride Level 97L, Carbon Dioxide Level 27, Anion Gap 13, Blood Urea Nitrogen 20H, Creatinine 0.94, Estimat Glomerular Filtration Rate 59, BUN/Creatinine Ratio 21, Glucose Level 251H, Calcium Level 9.4 08/30/16 06:05: Vancomycin Level Trough 30.5*H 08/30/16 12:54: Glucometer 272H 08/30/16 13:01: Lab Scanned Report Transfusion Reaction Form Microbiology 08/28/16 Blood Culture - Preliminary, Resulted No growth 08/28/16 Urine Culture - Final, Complete Escherichia Coli Assessment/Plan Assessment/Plan Assess & Plan/Chief Complaint 1. Escherichia coli UTI, sensitive to meropenem; Fever-has resolved since antibiotics were given; 2. Altered mental status--resolved; 3. Bilateral Pneumonia--improved on IV vancomycin, meropenem, and MAT protocol 4. Anemia-multifactorial in origin arising from metastatic lung cancer, recent chemotherapy, and anemia of chronic disease. Hemoglobin is 7.9 after receiving 1 unit packed RBCs. a. Check CBC in a.m. and if hemoglobin less than 7.8 we'll transfuse. 5. Reactive thrombocytosis-multifactorial arising from malignancy and infection --platelet count improved with IV antibiotics. 6. Abnormal abdominal/pelvic CT scan --free air around bladder noted urology is following; 7. Uncontrolled hypertension related to known pheochromocytoma-improved with antihypertensive medications. 8. Uncontrolled Diabetes--Dr. Brower is managing 9. 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 History of biopsy-proven left adrenal pheochromocytoma; Clinical Quality Measures DVT/VTE Risk/Contraindication: Risk Factor Score Per Nursin RFS Level Per Nursing on Admit: 3=High AMRIK GASPAR MD August 30, 2016 14:03
[2016-08-30] MEDS: IBUPROFEN 600 MG (MOTRIN) TAB PO PRN (15:26)
[2016-08-30] MEDS: LOSARTAN 50 MG (COZAAR) TAB PO SCH (15:26)
--- NOTE | 2016-08-30 16:53 | Progress Note (SOAP) ---
Subjective Subjective/Events-last exam Fwup bibasilar pneumonia, respiratory distress with hypoxia, UTI, COPD exacerbation, acute on chronic anemia, lung cancer with mets. C/O constipation/ abdominal pain. Objective Exam Vital Signs Date Time Temp Pulse Resp B/P (MAP) Pulse Ox O2 Delivery O2 Flow Rate FiO2 08/30/16 14:58 95 5.00 08/30/16 14:00 78 13 08/30/16 13:00 92 9 08/30/16 13:00 95 08/30/16 12:00 97.0 Nasal Cannula 5.00 08/30/16 12:00 96 5.00 08/30/16 12:00 91 9 152/91 97 Nasal Cannula 5.00 08/30/16 11:00 89 13 166/90 97 Nasal Cannula 5.00 08/30/16 10:00 88 15 159/87 96 Nasal Cannula 5.00 08/30/16 09:00 98 7 106/81 98 Nasal Cannula 5.00 08/30/16 08:00 109 15 140/80 Nasal Cannula 5.00 08/30/16 08:00 96 5.00 08/30/16 08:00 97.4 Nasal Cannula 5.00 08/30/16 07:00 102 08/30/16 07:00 95 5.00 08/30/16 07:00 98 7 106/81 98 Nasal Cannula 5.00 08/30/16 06:58 95 5.00 08/30/16 06:57 95 5.00 08/30/16 06:00 93 14 178/96 96 Nasal Cannula 5.00 08/30/16 05:00 90 11 176/92 96 Nasal Cannula 5.00 08/30/16 04:00 96 5.00 08/30/16 04:00 97.0 96 14 161/80 94 Nasal Cannula 5.00 08/30/16 03:00 93 17 177/86 94 Nasal Cannula 5.00 08/30/16 02:00 69 14 163/88 95 Nasal Cannula 5.00 08/30/16 01:00 70 08/30/16 01:00 70 14 189/103 96 Nasal Cannula 5.00 08/30/16 00:00 97.3 72 18 180/85 96 Nasal Cannula 5.00 08/30/16 00:00 96 5.00 08/29/16 23:00 86 15 192/99 99 Nasal Cannula 5.00 08/29/16 22:00 74 11 194/111 92 Nasal Cannula 5.00 08/29/16 21:00 76 16 183/100 98 Nasal Cannula 5.00 08/29/16 20:00 96.8 80 15 189/97 89 Nasal Cannula 5.00 08/29/16 20:00 98 5.00 08/29/16 19:00 73 08/29/16 19:00 73 16 200/96 77 Nasal Cannula 4.00 08/29/16 18:33 93 5.00 08/29/16 18:00 72 12 199/107 94 Nasal Cannula 4.00 08/29/16 17:00 76 20 213/119 93 Nasal Cannula 4.00 I & O 08/30/16 07:00 Intake Total 5339 ml Output Total 7850 ml Balance -2511 ml Capillary Refill : Less Than 3 Seconds General Appearance: No Apparent Distress Respiratory: Decreased Breath Sounds, Rhonci Cardiovascular: Regular Rate, Rhythm, Systolic Murmur Gastrointestinal: normal bowel sounds, soft, tenderness (generalized but especially in lower quadrants) Extremity: Non Tender, No Calf Tenderness, No Pedal Edema Neurologic/Psychiatric: Alert, Oriented x3 Results Lab Laboratory Tests 08/29/16 17:08: Glucometer 504*H 08/29/16 21:06: Glucometer 415*H 08/30/16 04:25: White Blood Count 18.3H, Red Blood Count 3.35L, Hemoglobin 9.5#L, Hematocrit 30L , Mean Corpuscular Volume 88, Mean Corpuscular Hemoglobin 28, Mean Corpuscular Hemoglobin Concent 32, Red Cell Distribution Width 18.1H, Platelet Count 594H, Mean Platelet Volume 9.7, Neutrophils (%) (Auto) 79H, Lymphocytes (%) (Auto) 12 , Monocytes (%) (Auto) 7, Eosinophils (%) (Auto) 0, Basophils (%) (Auto) 3, Neutrophils # (Auto) 14.4H, Lymphocytes # (Auto) 2.3, Monocytes # (Auto) 1.2H, Eosinophils # (Auto) 0.0, Basophils # (Auto) 0.5H, Neutrophils % (Manual) 75, Lymphocytes % (Manual) 19, Monocytes % (Manual) 1, Band Neutrophils 5, Hypersegmented Neutrophils MODERATE, Blood Morphology Comment NORMAL, Sodium Level 137, Potassium Level 4.1, Chloride Level 97L, Carbon Dioxide Level 27, Anion Gap 13, Blood Urea Nitrogen 20H, Creatinine 0.94, Estimat Glomerular Filtration Rate 59, BUN/Creatinine Ratio 21, Glucose Level 251H, Calcium Level 9.4 08/30/16 06:05: Vancomycin Level Trough 30.5*H 08/30/16 12:54: Glucometer 272H 08/30/16 13:01: Lab Scanned Report Transfusion Reaction Form 08/30/16 16:00: Glucometer 277H Microbiology 08/28/16 Blood Culture - Preliminary, Resulted No growth 08/28/16 Urine Culture - Final, Complete Escherichia Coli Assessment/Plan Assessment/Plan Assess & Plan/Chief Complaint 1. Bibasilar pneumonia--continue triple abx, CXR in AM 2. Acute Respiratory Distress with Acute Hypoxia--on NC 3. COPD exacerbation--wean solumedrol 4. UTI--continue abx and await urine cx results 5. Acute on Chronic Anemia--S/P transfusion--H/H improved 6. Uncontrolled DM--insulin requiring--increase levemir dose 7. Uncontrolled HTN--improved, continue current meds 8. Chronic Pain--improved with fentanyl patch 9. Constipation--give relistor 10. Transfer to medical floor 11. Discussed code status with patient and recommended at minimum to do DNI and no chest compressions--patient states she will talk to her daughter Clinical Quality Measures DVT/VTE Risk/Contraindication: Risk Factor Score Per Nursin RFS Level Per Nursing on Admit: 3=High CHRISTIAN SALES DO August 30, 2016 4:53 pm
[2016-08-30] MEDS: ACETAMINOPHEN 325 MG TABLET/CAPLET (TYLENOL) PO PRN (17:39)
[2016-08-30] MEDS: MEMANTINE 10 MG (NAMENDA) TABLET PO SCH (20:51)
[2016-08-30] MEDS: DULoxetine 30 MG (CYMBALTA) CAP PO SCH (20:51)
[2016-08-30] MEDS: DONEPEZIL 5 MG (ARICEPT) TAB PO SCH (20:51)
[2016-08-30] MEDS: POLYETHYLENE GLYCOL 17 GM (MIRALAX) PACK PO SCH (20:51)
[2016-08-30] MEDS: SENNA W/DOCUSATE (SENOKOT S) TABLET PO SCH (20:52)
[2016-08-30] MEDS: SIMvastatin 20 MG (ZOCOR) TAB PO SCH (20:52)
[2016-08-30] MEDS: inSUlin DETERMIR 1 UNIT/0.01 ML (LEVEMIR) CHARGE PER UNIT SQ SCH (21:01)
[2016-08-31] VITALS: BP 134/61
[2016-08-31] MEDS: HYDROcodone/APAP 10 MG/325 MG (LORTAB) TAB PO PRN ×4 (00:52→23:32)
[2016-08-31 04:00] VITALS: BP 183/77
[2016-08-31] MEDS: MEROPENEM 500 MG in NS (IVPB) 100 ML IV SCH ×4 (05:42→23:31)
[2016-08-31 05:53] LABS: BASOPHILS # (AUTO) 0.2 10^3/uL (0.0-0.1); BASOPHILS % (AUTO) 1 % (0-10); EOSINOPHILS % (AUTO) 0 % (0-10); LYMPHOCYTES # (AUTO) 2.3 X 10^3 (1.0-4.0); LYMPHOCYTES % (AUTO) 12 % (12-44); MEAN CORPUSCULAR HEMOGLOBIN 28 PG (25-34); MEAN CORPUSCULAR HGB CONC 31 G/DL (32-36); MEAN CORPUSCULAR VOLUME 89 FL (80-99); MEAN PLATELET VOLUME 9.6 FL (7.4-10.4); MONOCYTES # (AUTO) 1.9 X 10^3 (0.0-1.0); MONOCYTES % (AUTO) 10 % (0-12); NEUTROPHILS # (AUTO) 15.3 X 10^3 (1.8-7.8); NEUTROPHILS % (AUTO) 78 % (42-75); PLATELET COUNT 508 10^3/uL (130-400); RED BLOOD COUNT 3.34 10^6/uL (4.35-5.85); RED CELL DISTRIBUTION WIDTH 18.4 % (10.0-14.5); WHITE BLOOD COUNT 19.7 10^3/uL (4.3-11.0)
[2016-08-31 06:15] LABS: CALCIUM 9.2 MG/DL (8.5-10.1); CREATININE SERUM 0.92 MG/DL (0.60-1.30); POTASSIUM 4.4 MMOL/L (3.6-5.0)
[2016-08-31] MEDS: CARVEDILOL 12.5 MG (COREG) TABLET PO SCH ×3 (06:23→16:44)
[2016-08-31] MEDS: inSUlin (REGULAR) HUMAN 1 UNIT/0.01 ML (CHARGE PER UNIT) SC SCH ×4 (06:23→21:13)
[2016-08-31] MEDS: RT-ALBUTEROL/IPRATROPIUM 3 ML (DUONEB) VIAL INH SCH ×3 (07:40→19:35)
[2016-08-31] MEDS: UMECLIDINIUM BROMIDE (INCRUSE ELLIPTA) 7'S IH SCH (07:42)
[2016-08-31] MEDS: ADVAIR HFA 115/21 MCG INHALER 8 GM IH SCH ×2 (07:43→19:39)
[2016-08-31] MEDS ORDERED: RT-ADVAIR HFA 115/21 MCG PER PUFF IH ONE ×3 (07:43→19:39)
[2016-08-31] MEDS ORDERED: TROUGH ORDER-PHARMACY XX NR (08:00)
[2016-08-31 08:41] VITALS: BP 150/60
[2016-08-31] MEDS: ISOSORBIDE MONONITRATE 60 MG (IMDUR) TAB PO SCH (10:12)
[2016-08-31] MEDS: SENNA W/DOCUSATE (SENOKOT S) TABLET PO SCH ×2 (10:12→21:13)
[2016-08-31] MEDS: LACTOBACILLUS Acidoph/Bulgar (LACTINEX/FLORANEX) TAB PO SCH (10:13)
[2016-08-31] MEDS: FUROSEMIDE 40 MG (LASIX) TAB PO SCH (10:13)
[2016-08-31] MEDS: VANCOMYCIN 1,750 MG/NS 500 ML IVPB IV SCH ×2 (10:13)
[2016-08-31] MEDS: MAGNESIUM OXIDE (MAG-OX)400 MG TAB PO SCH (10:13)
[2016-08-31] MEDS: PANTOPRAZOLE 40 MG (PROTONIX) TAB PO SCH ×2 (10:13→21:13)
[2016-08-31] MEDS: ASPIRIN 81 MG CHEW (CHILDREN'S ASA) PO SCH (10:13)
[2016-08-31] MEDS: FLUTICASONE NASAL SPRAY (FLONASE) 16 GM BTL NS SCH ×2 (10:17→21:12)
[2016-08-31] MEDS: methylPREDNISolone 40 MG/ML (Solu-MEDROL) VIAL IV SCH (10:19)
[2016-08-31] MEDS: ARIPIPRAZOLE 10 MG (ABILIFY) TAB PO SCH ×2 (10:20→21:13)
[2016-08-31] MEDS: NYSTATIN CREAM (MYCOSTATIN) 30 GM TUBE TP SCH ×2 (10:20→21:12)
--- NOTE | 2016-08-31 11:23 | Progress Note-Urology ---
Progress Note-Urology Progress Notes/Assess & Plan Progress/Assessment & Plan FEELING AND LOOKING BETTER. YISEL KAY. CT PELVIS TODAY Final Diagnosis CYSTITIS PAVEL YOUNG MD August 31, 2016 11:23
[2016-08-31] MEDS ORDERED: NS 100 ML (IVPB) BAG IV ONE (14:15)
[2016-08-31] MEDS ORDERED: CATHETER FLUSH 10 ML SYR IV PRN (14:15)
[2016-08-31] MEDS ORDERED: IOHEXOL 350 MG/ML 100 ML (OMNIPAQUE 350) VIAL IV ONE (14:15)
[2016-08-31 15:35] VITALS: BP 135/71
--- NOTE | 2016-08-31 16:04 | Diagnostic Imaging Report ---
AP and lateral views of the chest. INDICATION: Pneumonia followup. COMPARISON: 08/29/2016. FINDINGS: There is a mild bibasilar infiltrates or atelectasis slightly increased in the right lung base compared to 08/29/2016. The heart size is the borderline. No significant effusion. No pneumothorax. The mediastinum and markus appear unremarkable. There is cervical fusion hardware seen. The infusion port is noted with the tip at SVC level. IMPRESSION: Bibasilar mild opacities increased in the right lung base may relate to infiltrates or atelectasis. Dictated by: Dictated on workstation # [id number]
--- NOTE | 2016-08-31 16:04 | Diagnostic Imaging Report ---
PROCEDURE; CT pelvis with and without contrast. TECHNIQUE: After oral contrast administration, imaging was obtained from the iliac crest to the lesser trochanters. Repeat imaging was performed after intravenous contrast administration. INDICATION: Cystitis. Fever. Bilateral hip pain. CONTRAST: 100 mL of Omnipaque 350 is administered intravenously. FINDINGS: The urinary bladder demonstrates an air-fluid level. The air in the bladder could be from recent catheterization or infection. There is severe dilatation of the cecum which projects into the pelvis with diameter of 12 cm and appears to be filled with fecal material. No definite evidence of pneumatosis. No significant free fluid or fluid collection in the pelvis is seen. The osseous structures demonstrate 3.4 x 3.1 cm lytic mass in the right side aspect of the L5 vertebral body. This has been previously treated with ablation and cementoplasty. There is also internal fixation hardware seen in the proximal right femur. IMPRESSION: 1. There is a severe dilatation of the cecum, filled with the fecal material. There is no significant wall thickening or evidence of pneumatosis seen at this point. 2. The urinary bladder has an air-fluid level without wall thickening and with no extraluminal air, and improvement compared to 08/28/2016 exam. The air could be from recent catheterization of gas forming infection. 3. A stable 3.4 cm lytic mass in the L5 vertebral body. Dr. Chavarria was called and voice message about the findings was left for him at time of this dictation. Dictated by: Dictated on workstation # [id number]
[2016-08-31] MEDS: LOSARTAN 50 MG (COZAAR) TAB PO SCH (16:45)
--- NOTE | 2016-08-31 17:42 | Progress Note (SOAP) ---
Subjective Subjective/Events-last exam Fwup bibasilar pneumonia, respiratory distress with hypoxia, UTI, COPD exacerbation, acute on chronic anemia, lung cancer with mets. Confusion today per nursing. Objective Exam Vital Signs Date Time Temp Pulse Resp B/P (MAP) Pulse Ox O2 Delivery O2 Flow Rate FiO2 08/31/16 15:35 97.2 78 16 135/71 95 Nasal Cannula 5.00 08/31/16 14:53 95 08/31/16 12:00 97.3 98 24 95 Nasal Cannula 5.00 08/31/16 08:41 98.5 93 20 150/60 96 Nasal Cannula 5.00 08/31/16 08:00 5.00 08/31/16 07:43 96 5.00 08/31/16 04:00 98.5 91 22 183/77 95 Nasal Cannula 5.00 08/31/16 00:00 97.5 99 22 134/61 94 Nasal Cannula 5.00 08/30/16 20:50 96 5.00 08/30/16 20:22 96 5.00 08/30/16 20:16 96 5.00 I & O 08/31/16 07:00 Intake Total 2900 ml Output Total 4024 ml Balance -1124 ml Capillary Refill : Less Than 3 SecondsLess Than 3 Seconds General Appearance: Mild Distress Neck: Supple Respiratory: Crackles Cardiovascular: Regular Rate, Rhythm Gastrointestinal: normal bowel sounds, non tender, soft Extremity: No Calf Tenderness, No Pedal Edema Neurologic/Psychiatric: Alert Results Lab Laboratory Tests 08/30/16 20:46: Glucometer 331H 08/31/16 05:40: White Blood Count 19.7H, Red Blood Count 3.34L, Hemoglobin 9.3L, Hematocrit 30L , Mean Corpuscular Volume 89, Mean Corpuscular Hemoglobin 28, Mean Corpuscular Hemoglobin Concent 31L, Red Cell Distribution Width 18.4H, Platelet Count 508H, Mean Platelet Volume 9.6, Neutrophils (%) (Auto) 78H, Lymphocytes (%) (Auto) 12 , Monocytes (%) (Auto) 10, Eosinophils (%) (Auto) 0, Basophils (%) (Auto) 1, Neutrophils # (Auto) 15.3H, Lymphocytes # (Auto) 2.3, Monocytes # (Auto) 1.9H, Eosinophils # (Auto) 0.0, Basophils # (Auto) 0.2H, Sodium Level 138, Potassium Level 4.4, Chloride Level 98, Carbon Dioxide Level 28, Anion Gap 12, Blood Urea Nitrogen 27H, Creatinine 0.92, Estimat Glomerular Filtration Rate 60, BUN/ Creatinine Ratio 29, Glucose Level 226H, Calcium Level 9.2, Vancomycin Level Trough 17.8, Smear Scan YES 08/31/16 05:45: Glucometer 238H 08/31/16 11:14: Glucometer 173H 08/31/16 16:36: Glucometer 164H Microbiology 08/28/16 Blood Culture - Preliminary, Resulted No growth 08/28/16 Urine Culture - Final, Complete Escherichia Coli Assessment/Plan Assessment/Plan Assess & Plan/Chief Complaint 1. Bibasilar pneumonia--CXR worsening so will add Levaquin 2. Acute Respiratory Distress with Acute Hypoxia--on NC 3. COPD exacerbation--stop solumedrol 4. UTI--continue abx and await urine cx results 5. Acute on Chronic Anemia--S/P transfusion--H/H improved 6. Uncontrolled DM--insulin requiring--continue levemir dose with SSI 7. Uncontrolled HTN--improved, continue current meds 8. Chronic Pain--improved with fentanyl patch 9. Constipation--continue senokot/miralax 10. Confusion--see if improves with DC of solumedrol Clinical Quality Measures DVT/VTE Risk/Contraindication: Risk Factor Score Per Nursin RFS Level Per Nursing on Admit: 3=High CHRISTIAN SALES DO August 31, 2016 17:42
[2016-08-31] MEDS ORDERED: LEVOFLOXACIN 500 MG/100 ML IV 100 ML IV NR (17:44)
[2016-08-31] MEDS: predniSONE 20 MG TAB PO SCH (18:13)
[2016-08-31 19:25] VITALS: BP 134/86
[2016-08-31] MEDS: POLYETHYLENE GLYCOL 17 GM (MIRALAX) PACK PO SCH (21:11)
[2016-08-31] MEDS: DULoxetine 30 MG (CYMBALTA) CAP PO SCH (21:13)
[2016-08-31] MEDS: inSUlin DETERMIR 1 UNIT/0.01 ML (LEVEMIR) CHARGE PER UNIT SQ SCH (21:13)
[2016-08-31] MEDS: SIMvastatin 20 MG (ZOCOR) TAB PO SCH (21:14)
[2016-08-31] MEDS: FENTANYL PATCH REMOVAL TP SCH (21:14)
[2016-08-31] MEDS: MEMANTINE 10 MG (NAMENDA) TABLET PO SCH (21:14)
[2016-08-31] MEDS: DONEPEZIL 5 MG (ARICEPT) TAB PO SCH (21:14)
[2016-09-01] MEDS: fentaNYL PATCH 25 MCG (DURAGESIC) TD SCH (00:33)
[2016-09-01 03:25] VITALS: BP 143/67
[2016-09-01 05:23] LABS: BASOPHILS # (AUTO) 0.1 10^3/uL (0.0-0.1); BASOPHILS % (AUTO) 1 % (0-10); EOSINOPHILS % (AUTO) 0 % (0-10); LYMPHOCYTES # (AUTO) 2.3 X 10^3 (1.0-4.0); LYMPHOCYTES % (AUTO) 15 % (12-44); MEAN CORPUSCULAR HEMOGLOBIN 28 PG (25-34); MEAN CORPUSCULAR HGB CONC 31 G/DL (32-36); MEAN CORPUSCULAR VOLUME 90 FL (80-99); MONOCYTES # (AUTO) 2.1 X 10^3 (0.0-1.0); MONOCYTES % (AUTO) 14 % (0-12); NEUTROPHILS # (AUTO) 10.6 X 10^3 (1.8-7.8); NEUTROPHILS % (AUTO) 70 % (42-75); PLATELET COUNT 377 10^3/uL (130-400); RED CELL DISTRIBUTION WIDTH 18.6 % (10.0-14.5); WHITE BLOOD COUNT 15.1 10^3/uL (4.3-11.0)
[2016-09-01 05:41] LABS: ANION GAP 12 MMOL/L (5-14); BLOOD UREA NITROGEN 32 MG/DL (7-18); BUN/CREATININE RATIO 36; CALCIUM 9.1 MG/DL (8.5-10.1); CARBON DIOXIDE 28 MMOL/L (21-32); CHLORIDE 99 MMOL/L (98-107); GFR ESTIMATED > 60; GLUCOSE 110 MG/DL (70-105); POTASSIUM 4.2 MMOL/L (3.6-5.0); SODIUM 139 MMOL/L (135-145)
[2016-09-01] MEDS: inSUlin (REGULAR) HUMAN 1 UNIT/0.01 ML (CHARGE PER UNIT) SC SCH ×4 (05:46→21:29)
[2016-09-01] MEDS: predniSONE 20 MG TAB PO SCH ×2 (06:12→16:37)
[2016-09-01] MEDS: CARVEDILOL 12.5 MG (COREG) TABLET PO SCH ×2 (06:12→16:37)
[2016-09-01] MEDS: MEROPENEM 500 MG in NS (IVPB) 100 ML IV SCH ×3 (06:12→17:46)
[2016-09-01] MEDS: HYDROcodone/APAP 10 MG/325 MG (LORTAB) TAB PO PRN ×3 (06:16→18:02)
[2016-09-01] MEDS: RT-ALBUTEROL/IPRATROPIUM 3 ML (DUONEB) VIAL INH SCH ×3 (06:58→19:03)
[2016-09-01] MEDS: ADVAIR HFA 115/21 MCG INHALER 8 GM IH SCH ×2 (06:59→19:11)
[2016-09-01] MEDS: UMECLIDINIUM BROMIDE (INCRUSE ELLIPTA) 7'S IH SCH (06:59)
[2016-09-01] MEDS ORDERED: RT-ADVAIR HFA 115/21 MCG PER PUFF IH ONE ×4 (06:59→19:11)
[2016-09-01 08:52] VITALS: BP 145/61
[2016-09-01] MEDS: LEVOFLOXACIN 500 MG/100 ML IV 100 ML IV SCH (09:07)
[2016-09-01] MEDS: FLUTICASONE NASAL SPRAY (FLONASE) 16 GM BTL NS SCH ×2 (09:07→21:00)
[2016-09-01] MEDS: VANCOMYCIN 1,750 MG/NS 500 ML IVPB IV SCH ×2 (09:07)
[2016-09-01] MEDS: FUROSEMIDE 40 MG (LASIX) TAB PO SCH (09:07)
[2016-09-01] MEDS: PANTOPRAZOLE 40 MG (PROTONIX) TAB PO SCH ×2 (09:07→21:30)
[2016-09-01] MEDS: ASPIRIN 81 MG CHEW (CHILDREN'S ASA) PO SCH (09:08)
[2016-09-01] MEDS: DULoxetine 30 MG (CYMBALTA) CAP PO SCH ×2 (09:08→21:30)
[2016-09-01] MEDS: SENNA W/DOCUSATE (SENOKOT S) TABLET PO SCH ×2 (09:08→21:30)
[2016-09-01] MEDS: ARIPIPRAZOLE 10 MG (ABILIFY) TAB PO SCH ×2 (09:08→21:30)
[2016-09-01] MEDS: LACTOBACILLUS Acidoph/Bulgar (LACTINEX/FLORANEX) TAB PO SCH (09:08)
[2016-09-01] MEDS: NYSTATIN CREAM (MYCOSTATIN) 30 GM TUBE TP SCH ×2 (09:09→21:31)
[2016-09-01] MEDS: MAGNESIUM OXIDE (MAG-OX)400 MG TAB PO SCH (09:15)
[2016-09-01] MEDS: ISOSORBIDE MONONITRATE 60 MG (IMDUR) TAB PO SCH (09:15)
--- NOTE | 2016-09-01 09:49 | Progress Note-Urology ---
Progress Note-Urology Progress Notes/Assess & Plan Progress/Assessment & Plan BLADDER BETTER ON CT BUT ABNORMAL CECUM, NO SYMPTOMS OR COMPLAINTS, WE WILL BRING TO ATTENTION OF DR SALES Final Diagnosis CYSTITIS PAVEL YOUNG MD September 01, 2016 09:49
--- NOTE | 2016-09-01 10:51 | Progress Note (SOAP) ---
Subjective Subjective/Events-last exam Fwup bibasilar pneumonia, respiratory distress with hypoxia, UTI, COPD exacerbation, acute on chronic anemia, lung cancer with mets. Resting comfortably in bed. Objective Exam Vital Signs Date Time Temp Pulse Resp B/P (MAP) Pulse Ox O2 Delivery O2 Flow Rate FiO2 09/01/16 08:52 96.0 73 20 145/61 94 Nasal Cannula 5.00 09/01/16 08:00 5.00 09/01/16 07:02 95 5.00 09/01/16 07:01 95 5.00 09/01/16 07:01 95 5.00 09/01/16 03:25 96.6 75 18 143/67 94 Nasal Cannula 5.00 08/31/16 21:20 5.00 08/31/16 19:43 5.00 08/31/16 19:39 94 5.00 08/31/16 19:25 98.2 85 24 134/86 96 Nasal Cannula 5.00 08/31/16 15:35 97.2 78 16 135/71 95 Nasal Cannula 5.00 08/31/16 14:53 95 08/31/16 12:00 97.3 98 24 95 Nasal Cannula 5.00 I & O 09/01/16 07:00 Intake Total 2587 ml Output Total 850 ml Balance 1737 ml Capillary Refill : Less Than 3 SecondsLess Than 3 Seconds General Appearance: No Apparent Distress Neck: Supple Respiratory: Rhonci Cardiovascular: Regular Rate, Rhythm, Systolic Murmur Gastrointestinal: normal bowel sounds, soft Extremity: Non Tender, No Calf Tenderness, No Pedal Edema Neurologic/Psychiatric: Motor Weakness (generalized) Results Lab Laboratory Tests 08/31/16 11:14: Glucometer 173H 08/31/16 16:36: Glucometer 164H 08/31/16 20:54: Glucometer 290H 09/01/16 05:10: White Blood Count 15.1H, Red Blood Count 3.10L, Hemoglobin 8.7L, Hematocrit 28L , Mean Corpuscular Volume 90, Mean Corpuscular Hemoglobin 28, Mean Corpuscular Hemoglobin Concent 31L, Red Cell Distribution Width 18.6H, Platelet Count 377, Mean Platelet Volume 10.0, Neutrophils (%) (Auto) 70, Lymphocytes (%) (Auto) 15 , Monocytes (%) (Auto) 14H, Eosinophils (%) (Auto) 0, Basophils (%) (Auto) 1, Neutrophils # (Auto) 10.6H, Lymphocytes # (Auto) 2.3, Monocytes # (Auto) 2.1H, Eosinophils # (Auto) 0.0, Basophils # (Auto) 0.1, Sodium Level 139, Potassium Level 4.2, Chloride Level 99, Carbon Dioxide Level 28, Anion Gap 12, Blood Urea Nitrogen 32H, Creatinine 0.90, Estimat Glomerular Filtration Rate > 60, BUN/ Creatinine Ratio 36, Glucose Level 110H, Calcium Level 9.1 Microbiology 08/28/16 Blood Culture - Preliminary, Resulted No growth 08/28/16 Urine Culture - Final, Complete Escherichia Coli Assessment/Plan Assessment/Plan Assess & Plan/Chief Complaint 1. Bibasilar pneumonia--now on triple therapy and WBC count has came down today 2. Acute Respiratory Distress with Acute Hypoxia--improved, on NC 3. COPD exacerbation--Continue SVNS and prednisone 4. UTI--urine cx grew out E coli with broad sensitivity so continue current abx 5. Acute on Chronic Anemia--S/P transfusion--monitor H/H 6. Uncontrolled DM--insulin requiring--continue levemir dose with SSI 7. Uncontrolled HTN--improved, continue current meds 8. Chronic Pain--improved with fentanyl patch 9. Constipation--continue senokot/miralax and add relistor 10. Confusion--back on home meds Clinical Quality Measures DVT/VTE Risk/Contraindication: Risk Factor Score Per Nursin RFS Level Per Nursing on Admit: 3=High CHRISTIAN SALES DO September 01, 2016 10:51
[2016-09-01 12:56] VITALS: BP 165/79
[2016-09-01 15:55] VITALS: BP 160/71
[2016-09-01] MEDS: LOSARTAN 50 MG (COZAAR) TAB PO SCH (16:37)
[2016-09-01 19:40] VITALS: BP 107/68
[2016-09-01] MEDS: POLYETHYLENE GLYCOL 17 GM (MIRALAX) PACK PO SCH (21:29)
[2016-09-01] MEDS: inSUlin DETERMIR 1 UNIT/0.01 ML (LEVEMIR) CHARGE PER UNIT SQ SCH (21:29)
[2016-09-01] MEDS: DONEPEZIL 5 MG (ARICEPT) TAB PO SCH (21:30)
[2016-09-01] MEDS: MEMANTINE 10 MG (NAMENDA) TABLET PO SCH (21:30)
[2016-09-01] MEDS: SIMvastatin 20 MG (ZOCOR) TAB PO SCH (21:30)
[2016-09-02] VITALS: BP 105/65
[2016-09-02] MEDS: MEROPENEM 500 MG in NS (IVPB) 100 ML IV SCH ×4 (00:30→18:33)
[2016-09-02 04:00] VITALS: BP 122/75
[2016-09-02 05:23] LABS: BASOPHILS # (AUTO) 0.1 10^3/uL (0.0-0.1); BASOPHILS % (AUTO) 0 % (0-10); EOSINOPHILS % (AUTO) 0 % (0-10); LYMPHOCYTES # (AUTO) 2.6 X 10^3 (1.0-4.0); LYMPHOCYTES % (AUTO) 18 % (12-44); MEAN CORPUSCULAR HEMOGLOBIN 28 PG (25-34); MEAN CORPUSCULAR HGB CONC 31 G/DL (32-36); MEAN CORPUSCULAR VOLUME 91 FL (80-99); MEAN PLATELET VOLUME 9.8 FL (7.4-10.4); MONOCYTES # (AUTO) 2.1 X 10^3 (0.0-1.0); MONOCYTES % (AUTO) 15 % (0-12); NEUTROPHILS # (AUTO) 9.9 X 10^3 (1.8-7.8); NEUTROPHILS % (AUTO) 67 % (42-75); PLATELET COUNT 330 10^3/uL (130-400); RED BLOOD COUNT 3.09 10^6/uL (4.35-5.85); RED CELL DISTRIBUTION WIDTH 18.9 % (10.0-14.5); WHITE BLOOD COUNT 14.7 10^3/uL (4.3-11.0)
[2016-09-02] MEDS: HYDROcodone/APAP 10 MG/325 MG (LORTAB) TAB PO PRN ×3 (05:31→22:42)
[2016-09-02 05:45] LABS: ANION GAP 11 MMOL/L (5-14); BLOOD UREA NITROGEN 30 MG/DL (7-18); BUN/CREATININE RATIO 33; CALCIUM 8.7 MG/DL (8.5-10.1); CARBON DIOXIDE 29 MMOL/L (21-32); CHLORIDE 101 MMOL/L (98-107); CREATININE SERUM 0.91 MG/DL (0.60-1.30); GFR ESTIMATED > 60; GLUCOSE 123 MG/DL (70-105); POTASSIUM 4.6 MMOL/L (3.6-5.0); SODIUM 141 MMOL/L (135-145)
[2016-09-02] MEDS: inSUlin (REGULAR) HUMAN 1 UNIT/0.01 ML (CHARGE PER UNIT) SC SCH ×4 (05:49→21:11)
[2016-09-02] MEDS: predniSONE 20 MG TAB PO SCH ×2 (06:06→16:49)
[2016-09-02] MEDS: CARVEDILOL 12.5 MG (COREG) TABLET PO SCH ×2 (06:06→16:50)
[2016-09-02] MEDS ORDERED: TROUGH ORDER-PHARMACY XX ONE (08:00)
[2016-09-02 08:50] VITALS: BP 139/69
[2016-09-02] MEDS: VANCOMYCIN 1,750 MG/NS 500 ML IVPB IV SCH ×2 (09:32)
[2016-09-02] MEDS: FLUTICASONE NASAL SPRAY (FLONASE) 16 GM BTL NS SCH ×2 (09:33→20:46)
[2016-09-02] MEDS: NYSTATIN CREAM (MYCOSTATIN) 30 GM TUBE TP SCH ×2 (09:34→20:49)
[2016-09-02] MEDS: FUROSEMIDE 40 MG (LASIX) TAB PO SCH (09:34)
[2016-09-02] MEDS: DULoxetine 30 MG (CYMBALTA) CAP PO SCH ×2 (09:34→20:47)
[2016-09-02] MEDS: ARIPIPRAZOLE 10 MG (ABILIFY) TAB PO SCH ×2 (09:34→20:48)
[2016-09-02] MEDS: PANTOPRAZOLE 40 MG (PROTONIX) TAB PO SCH ×2 (09:34→20:48)
[2016-09-02] MEDS: SENNA W/DOCUSATE (SENOKOT S) TABLET PO SCH ×2 (09:34→20:47)
[2016-09-02] MEDS: MAGNESIUM OXIDE (MAG-OX)400 MG TAB PO SCH (09:34)
[2016-09-02] MEDS: LACTOBACILLUS Acidoph/Bulgar (LACTINEX/FLORANEX) TAB PO SCH (09:34)
[2016-09-02] MEDS: ASPIRIN 81 MG CHEW (CHILDREN'S ASA) PO SCH (09:35)
[2016-09-02] MEDS: ISOSORBIDE MONONITRATE 60 MG (IMDUR) TAB PO SCH (09:39)
[2016-09-02] MEDS: LEVOFLOXACIN 500 MG/100 ML IV 100 ML IV SCH (09:40)
[2016-09-02] MEDS: RT-ALBUTEROL/IPRATROPIUM 3 ML (DUONEB) VIAL INH SCH ×3 (11:27→20:04)
--- NOTE | 2016-09-02 13:06 | Progress Note (SOAP) ---
Subjective Subjective 71 yo F admitted for uti, pneumonia- with history of metastatic lung cancer Pt reports she is improving daily- on her baseline 5L oxygen- she had a good bowel movement today- she says it was due because she had not pooped in nearly 3 weeks. -No overnight events. -Pt did have hypoglycemia this AM of 40- pt given po fluid, food and it recovered to 80. Review of Systems General: No Chills, No Night Sweats HEENT: No Head Aches Pulmonary: Dyspnea, Cough Cardiovascular: No: Chest Pain, Palpitations Gastrointestinal: No: Abdominal Pain, Nausea, Vomiting Genitourinary: No Dysuria, No Frequency Musculoskeletal: back pain, No: neck pain Neurological: Weakness Objective Exam Vital Signs Vital Signs Date Time Temp Pulse Resp B/P (MAP) Pulse Ox O2 Delivery O2 Flow Rate FiO2 09/02/16 10:31 5.00 09/02/16 08:50 97.7 59 20 139/69 95 Nasal Cannula 5.00 09/02/16 04:00 96.0 63 18 122/75 97 Nasal Cannula 5.00 09/02/16 00:00 97.1 67 18 105/65 97 Nasal Cannula 5.00 09/01/16 20:00 5.00 09/01/16 19:40 97.6 61 16 107/68 93 Nasal Cannula 6.00 09/01/16 19:11 5.00 09/01/16 19:03 92 5.00 09/01/16 15:55 96.6 80 16 160/71 92 Nasal Cannula 6.00 09/01/16 14:20 94 5.00 I & O 09/02/16 07:00 Intake Total 1820 ml Output Total 950 ml Balance 870 ml General Appearance: No Apparent Distress, Obese Eyes: Bilateral Eye EOMI, Bilateral Eye Normal Inspection, Bilateral Eye PERRL HEENT: PERRL/EOMI Neck: Supple Respiratory: Respiratory Distress (coarse breath sounds throughout- bruise on right side of back from previous falls.) Cardiovascular: Regular Rate, Rhythm Gastrointestinal: Normal Bowel Sounds, Soft, Tenderness (left lower quadrant and suprapubic) Rectal: Deferred Back: Vertebral Tenderness Extremity: Non Tender, No Calf Tenderness, No Pedal Edema Neurologic/Psychiatric: Alert, Oriented x3, plant utility person II-XII Norm as Tested Skin: Normal Color, Warm/Dry Results Lab Laboratory Tests 09/01/16 16:12: Glucometer 204H 09/01/16 20:41: Glucometer 241H 09/02/16 05:11: White Blood Count 14.7H, Red Blood Count 3.09L, Hemoglobin 8.7L, Hematocrit 28L , Mean Corpuscular Volume 91, Mean Corpuscular Hemoglobin 28, Mean Corpuscular Hemoglobin Concent 31L, Red Cell Distribution Width 18.9H, Platelet Count 330, Mean Platelet Volume 9.8, Neutrophils (%) (Auto) 67, Lymphocytes (%) (Auto) 18, Monocytes (%) (Auto) 15H, Eosinophils (%) (Auto) 0, Basophils (%) (Auto) 0, Neutrophils # (Auto) 9.9H, Lymphocytes # (Auto) 2.6, Monocytes # (Auto) 2.1H, Eosinophils # (Auto) 0.0, Basophils # (Auto) 0.1, Sodium Level 141, Potassium Level 4.6, Chloride Level 101, Carbon Dioxide Level 29, Anion Gap 11, Blood Urea Nitrogen 30H, Creatinine 0.91, Estimat Glomerular Filtration Rate > 60, BUN /Creatinine Ratio 33, Glucose Level 123H, Calcium Level 8.7 09/02/16 05:15: Glucometer 136H 09/02/16 08:20: Vancomycin Level Trough 24.2H 09/02/16 09:55: Glucometer 43*L 09/02/16 10:03: Glucometer 55*L 09/02/16 10:47: Glucometer 80 Microbiology 08/28/16 Blood Culture - Preliminary, Resulted No growth 08/28/16 Urine Culture - Final, Complete Escherichia Coli Assessment/Plan Assessment/Plan Assessment/Plan 71 yo F - Escherichia coli UTI, -on meropenem, Dr. scmhitz, urology. - Bilateral Pneumonia--on 5L NC, baseline- continue IV vancomycin, meropenem, levoquin (it is listed as an allergy though- cont monitor) RT protocol, prednisone po. -Anemia of chronic disease - s/p transfusion 1unit pRBC .05.16 continue to monitor Hgb -HTN- continue meds -DMII- continue insulin regimen -metastatic adenocarcinoma of lung with metastasis- L5 lytic lesion seen on CT. Dr. Mccauley following -left adrenal pheochromocytoma- monitor bp -constipation- noted on CT- cont bowel regimen- last BM 09/02/16- Dispo: continue inpt stay- continue abx. monitor hgb. Problems: Clinical Quality Measures DVT/VTE Risk/Contraindication: Risk Factor Score Per Nursin RFS Level Per Nursing on Admit: 3=High PAN SUERO MD September 02, 2016 13:06
[2016-09-02] MEDS: UMECLIDINIUM BROMIDE (INCRUSE ELLIPTA) 7'S IH SCH (14:20)
[2016-09-02] MEDS ORDERED: RT-ADVAIR HFA 115/21 MCG PER PUFF IH ONE ×3 (14:24→22:05)
[2016-09-02] MEDS: ADVAIR HFA 115/21 MCG INHALER 8 GM IH SCH ×2 (14:24→20:04)
[2016-09-02 16:00] VITALS: BP 126/62
[2016-09-02] MEDS: LOSARTAN 50 MG (COZAAR) TAB PO SCH (16:50)
[2016-09-02] MEDS: SIMvastatin 20 MG (ZOCOR) TAB PO SCH (20:47)
[2016-09-02] MEDS: DONEPEZIL 5 MG (ARICEPT) TAB PO SCH (20:48)
[2016-09-02] MEDS: MEMANTINE 10 MG (NAMENDA) TABLET PO SCH (20:48)
[2016-09-02] MEDS: POLYETHYLENE GLYCOL 17 GM (MIRALAX) PACK PO SCH (20:48)
[2016-09-02] MEDS: ACETAMINOPHEN 325 MG TABLET/CAPLET (TYLENOL) PO PRN (21:11)
[2016-09-02] MEDS: inSUlin DETERMIR 1 UNIT/0.01 ML (LEVEMIR) CHARGE PER UNIT SQ SCH (21:11)
[2016-09-03] VITALS: BP 127/72
[2016-09-03] MEDS: MEROPENEM 500 MG in NS (IVPB) 100 ML IV SCH ×5 (00:41→23:34)
[2016-09-03] MEDS ORDERED: TROUGH ORDER-PHARMACY XX NR (06:00)
[2016-09-03] MEDS: inSUlin (REGULAR) HUMAN 1 UNIT/0.01 ML (CHARGE PER UNIT) SC SCH ×4 (06:06→21:02)
[2016-09-03] MEDS: predniSONE 20 MG TAB PO SCH ×2 (06:06→17:46)
[2016-09-03] MEDS: CARVEDILOL 12.5 MG (COREG) TABLET PO SCH ×2 (06:07→17:46)
[2016-09-03] MEDS: HYDROcodone/APAP 10 MG/325 MG (LORTAB) TAB PO PRN ×3 (06:18→23:35)
[2016-09-03 06:46] LABS: BASOPHILS # (AUTO) 0.2 10^3/uL (0.0-0.1); BASOPHILS % (AUTO) 1 % (0-10); EOSINOPHILS % (AUTO) 0 % (0-10); LYMPHOCYTES % (AUTO) 15 % (12-44); MEAN CORPUSCULAR HEMOGLOBIN 28 PG (25-34); MEAN CORPUSCULAR HGB CONC 31 G/DL (32-36); MEAN CORPUSCULAR VOLUME 91 FL (80-99); MEAN PLATELET VOLUME 10.7 FL (7.4-10.4); MONOCYTES % (AUTO) 10 % (0-12); NEUTROPHILS # (AUTO) 14.7 X 10^3 (1.8-7.8); NEUTROPHILS % (AUTO) 74 % (42-75); PLATELET COUNT 349 10^3/uL (130-400); RED BLOOD COUNT 3.68 10^6/uL (4.35-5.85); RED CELL DISTRIBUTION WIDTH 20.1 % (10.0-14.5); WHITE BLOOD COUNT 19.8 10^3/uL (4.3-11.0)
[2016-09-03] MEDS: RT-ALBUTEROL/IPRATROPIUM 3 ML (DUONEB) VIAL INH SCH ×3 (06:57→20:32)
[2016-09-03 06:58] LABS: ANION GAP 14 MMOL/L (5-14); BLOOD UREA NITROGEN 30 MG/DL (7-18); BUN/CREATININE RATIO 33; CALCIUM 9.2 MG/DL (8.5-10.1); CARBON DIOXIDE 24 MMOL/L (21-32); CHLORIDE 100 MMOL/L (98-107); GFR ESTIMATED > 60; GLUCOSE 95 MG/DL (70-105); POTASSIUM 5.3 MMOL/L (3.6-5.0); SODIUM 138 MMOL/L (135-145)
[2016-09-03] MEDS: ADVAIR HFA 115/21 MCG INHALER 8 GM IH SCH ×2 (06:58→20:33)
[2016-09-03] MEDS: UMECLIDINIUM BROMIDE (INCRUSE ELLIPTA) 7'S IH SCH (06:58)
[2016-09-03] MEDS ORDERED: RT-ADVAIR HFA 115/21 MCG PER PUFF IH ONE ×3 (06:58→20:33)
[2016-09-03] MEDS: SENNA W/DOCUSATE (SENOKOT S) TABLET PO SCH ×2 (07:54→21:15)
[2016-09-03] MEDS: VANCOMYCIN 1 GM/NS 250 ML IVPB IV SCH ×2 (08:05)
[2016-09-03] MEDS: FUROSEMIDE 40 MG (LASIX) TAB PO SCH (08:10)
[2016-09-03] MEDS: LACTOBACILLUS Acidoph/Bulgar (LACTINEX/FLORANEX) TAB PO SCH (08:11)
[2016-09-03] MEDS: PANTOPRAZOLE 40 MG (PROTONIX) TAB PO SCH ×2 (08:11→21:15)
[2016-09-03] MEDS: ASPIRIN 81 MG CHEW (CHILDREN'S ASA) PO SCH (08:11)
[2016-09-03] MEDS: ARIPIPRAZOLE 10 MG (ABILIFY) TAB PO SCH ×2 (08:11→21:15)
[2016-09-03] MEDS: DULoxetine 30 MG (CYMBALTA) CAP PO SCH ×2 (08:11→21:15)
[2016-09-03] MEDS: MAGNESIUM OXIDE (MAG-OX)400 MG TAB PO SCH (08:11)
[2016-09-03] MEDS: ISOSORBIDE MONONITRATE 60 MG (IMDUR) TAB PO SCH (08:11)
[2016-09-03] MEDS: FLUTICASONE NASAL SPRAY (FLONASE) 16 GM BTL NS SCH ×2 (08:11→21:14)
[2016-09-03] MEDS: NYSTATIN CREAM (MYCOSTATIN) 30 GM TUBE TP SCH ×2 (08:12→21:16)
[2016-09-03 08:45] VITALS: BP 99/58
[2016-09-03] MEDS: LEVOFLOXACIN 500 MG/100 ML IV 100 ML IV SCH (09:11)
--- NOTE | 2016-09-03 10:06 | Progress Note (SOAP) ---
Subjective Subjective 71 yo F admitted for uti, pneumonia- with history of metastatic lung cancer Pt reports she is improving daily- on her baseline 5L oxygen- she had another good bowel movement today- -No overnight events. -Pt did have hypoglycemia again this AM 50s- brought back up with po. Will decrease her nighttime levemir in half 70->35units. Review of Systems General: No Chills, No Night Sweats HEENT: No Head Aches Pulmonary: Dyspnea, Cough Cardiovascular: No: Chest Pain, Palpitations Gastrointestinal: No: Abdominal Pain, Nausea, Vomiting Genitourinary: No Dysuria, No Frequency Musculoskeletal: back pain, No: neck pain Neurological: Weakness Objective Exam Vital Signs Vital Signs Date Time Temp Pulse Resp B/P (MAP) Pulse Ox O2 Delivery O2 Flow Rate FiO2 09/03/16 08:45 96.1 64 18 99/58 09/03/16 06:59 93 5.00 09/03/16 00:00 98.0 66 18 127/72 92 Nasal Cannula 5.00 09/02/16 20:07 5.00 09/02/16 20:05 5.00 09/02/16 19:40 5.00 09/02/16 16:00 95.9 68 24 126/62 95 Nasal Cannula 5.00 09/02/16 14:20 93 5.00 09/02/16 10:31 5.00 I & O 09/03/16 07:00 Intake Total 3330 ml Output Total 600 ml Balance 2730 ml General Appearance: No Apparent Distress, Obese Eyes: Bilateral Eye EOMI, Bilateral Eye Normal Inspection, Bilateral Eye PERRL HEENT: PERRL/EOMI Neck: Supple Respiratory: Respiratory Distress (coarse breath sounds throughout- bruise on right side of back from previous falls.) Cardiovascular: Regular Rate, Rhythm Gastrointestinal: Normal Bowel Sounds, Soft, Tenderness (left lower quadrant and suprapubic) Rectal: Deferred Back: Vertebral Tenderness Extremity: Non Tender, No Calf Tenderness, No Pedal Edema Neurologic/Psychiatric: Alert, Oriented x3, fisher lampara net II-XII Norm as Tested Skin: Normal Color, Warm/Dry Results Lab Laboratory Tests 09/02/16 10:03: Glucometer 55*L 09/02/16 10:47: Glucometer 80 09/02/16 13:57: Glucometer 185H 09/02/16 16:46: Glucometer 329H 09/02/16 20:49: Glucometer 319H 09/03/16 05:34: Glucometer 51*L 09/03/16 06:05: Glucometer 75 09/03/16 06:30: White Blood Count 19.8H, Red Blood Count 3.68L, Hemoglobin 10.4L, Hematocrit 33L , Mean Corpuscular Volume 91, Mean Corpuscular Hemoglobin 28, Mean Corpuscular Hemoglobin Concent 31L, Red Cell Distribution Width 20.1H, Platelet Count 349, Mean Platelet Volume 10.7H, Neutrophils (%) (Auto) 74, Lymphocytes (%) (Auto) 15 , Monocytes (%) (Auto) 10, Eosinophils (%) (Auto) 0, Basophils (%) (Auto) 1, Neutrophils # (Auto) 14.7H, Lymphocytes # (Auto) 3.0, Monocytes # (Auto) 2.0H, Eosinophils # (Auto) 0.0, Basophils # (Auto) 0.2H, Vancomycin Level Trough 17.7 09/03/16 06:35: Sodium Level 138, Potassium Level 5.3H, Chloride Level 100, Carbon Dioxide Level 24, Anion Gap 14, Blood Urea Nitrogen 30H, Creatinine 0.90, Estimat Glomerular Filtration Rate > 60, BUN/Creatinine Ratio 33, Glucose Level 95, Calcium Level 9.2 Microbiology 08/28/16 Blood Culture - Final, Complete No growth 08/28/16 Urine Culture - Final, Complete Escherichia Coli Assessment/Plan Assessment/Plan Assessment/Plan 71 yo F - Escherichia coli UTI, -on meropenem, Dr. schmitz, urology. - Bilateral Pneumonia--on 5L NC, baseline- continue IV vancomycin, meropenem, levoquin (it is listed as an allergy though- cont monitor) RT protocol, prednisone po. -acute exacerbation of COPD- stable; steroids, oxygen, RT -Anemia of chronic disease - s/p transfusion 1unit pRBC 5..17 continue to monitor Hgb -HTN- continue meds -DMII- continue insulin regimen- decreased her levemir from 70 to 35unts qhs -metastatic adenocarcinoma of lung with metastasis- L5 lytic lesion seen on CT. Dr. Mccauley following -left adrenal pheochromocytoma- monitor bp -constipation- noted on CT- cont bowel regimen- last BM 5/7/17- Dispo: continue inpt stay- continue abx. monitor hgb. Afebrile, does not appear to be ill- monitor WBC- elevated today- will recheck in AM. K also up today- may be due to hemolysis- will recheck in AM Problems: Clinical Quality Measures DVT/VTE Risk/Contraindication: Risk Factor Score Per Nursin RFS Level Per Nursing on Admit: 3=High PAN SUERO MD September 03, 2016 10:06
[2016-09-03 15:40] VITALS: BP 153/71
[2016-09-03] MEDS: LOSARTAN 50 MG (COZAAR) TAB PO SCH (17:46)
[2016-09-03] MEDS ORDERED: inSUlin DETERMIR 1 UNIT/0.01 ML (LEVEMIR) CHARGE PER UNIT SQ SCH (21:00)
[2016-09-03] MEDS: DONEPEZIL 5 MG (ARICEPT) TAB PO SCH (21:15)
[2016-09-03] MEDS: FENTANYL PATCH REMOVAL TP SCH (21:15)
[2016-09-03] MEDS: SIMvastatin 20 MG (ZOCOR) TAB PO SCH (21:15)
[2016-09-03] MEDS: MEMANTINE 10 MG (NAMENDA) TABLET PO SCH (21:15)
[2016-09-03] MEDS: POLYETHYLENE GLYCOL 17 GM (MIRALAX) PACK PO SCH (21:16)
[2016-09-04] VITALS: BP 131/81
[2016-09-04] MEDS: HYDROcodone/APAP 10 MG/325 MG (LORTAB) TAB PO PRN ×4 (06:30→21:09)
[2016-09-04] MEDS: CARVEDILOL 12.5 MG (COREG) TABLET PO SCH ×2 (06:30→17:23)
[2016-09-04] MEDS: inSUlin (REGULAR) HUMAN 1 UNIT/0.01 ML (CHARGE PER UNIT) SC SCH ×4 (06:31→21:12)
[2016-09-04] MEDS: predniSONE 20 MG TAB PO SCH ×2 (06:31→17:23)
[2016-09-04] MEDS: MEROPENEM 500 MG in NS (IVPB) 100 ML IV SCH ×3 (06:31→17:24)
[2016-09-04] MEDS ORDERED: TROUGH ORDER-PHARMACY XX NR (07:00)
[2016-09-04] MEDS ORDERED: RT-ADVAIR HFA 115/21 MCG PER PUFF IH ONE (07:09)
[2016-09-04] MEDS: RT-ALBUTEROL/IPRATROPIUM 3 ML (DUONEB) VIAL INH SCH ×4 (07:33→19:30)
[2016-09-04] MEDS: RT-ADVAIR HFA 115/21 MCG PER PUFF IH SCH (07:37)
[2016-09-04] MEDS: UMECLIDINIUM BROMIDE (INCRUSE ELLIPTA) 7'S IH SCH (07:38)
[2016-09-04 08:00] VITALS: BP 112/57
--- NOTE | 2016-09-04 09:11 | Diagnostic Imaging Report ---
INDICATION: Pneumonia. TECHNIQUE: PA and lateral views of the chest were obtained at 0813 hours. COMPARISON: 08/31/2016. FINDINGS: The Port-A-Cath is unchanged. The heart is normal in size. The aorta is tortuous. There appears to be increased atelectatic change or infiltrate in the right base compared to the prior study. There is some residual atelectatic change or infiltrate in the left base as well. IMPRESSION: Residual infiltrate or atelectasis in the left base is again noted. There appears to be worsening atelectatic change or infiltrate in the right base. The Port-A-Cath is unchanged. There is no pneumothorax or pleural fluid. Dictated by: Dictated on workstation # [id number]
[2016-09-04] MEDS: PANTOPRAZOLE 40 MG (PROTONIX) TAB PO SCH ×2 (09:19→21:09)
[2016-09-04] MEDS: LACTOBACILLUS Acidoph/Bulgar (LACTINEX/FLORANEX) TAB PO SCH (09:19)
[2016-09-04] MEDS: ARIPIPRAZOLE 10 MG (ABILIFY) TAB PO SCH ×2 (09:19→21:09)
[2016-09-04] MEDS: MAGNESIUM OXIDE (MAG-OX)400 MG TAB PO SCH (09:19)
[2016-09-04] MEDS: ISOSORBIDE MONONITRATE 60 MG (IMDUR) TAB PO SCH (09:19)
[2016-09-04] MEDS: FUROSEMIDE 40 MG (LASIX) TAB PO SCH (09:19)
[2016-09-04] MEDS: DULoxetine 30 MG (CYMBALTA) CAP PO SCH ×2 (09:19→21:09)
[2016-09-04] MEDS: ASPIRIN 81 MG CHEW (CHILDREN'S ASA) PO SCH (09:19)
[2016-09-04] MEDS: SENNA W/DOCUSATE (SENOKOT S) TABLET PO SCH ×2 (09:19→21:08)
[2016-09-04] MEDS: FLUTICASONE NASAL SPRAY (FLONASE) 16 GM BTL NS SCH ×2 (09:21→21:12)
[2016-09-04] MEDS: LEVOFLOXACIN 500 MG/100 ML IV 100 ML IV SCH (09:21)
[2016-09-04] MEDS: NYSTATIN CREAM (MYCOSTATIN) 30 GM TUBE TP SCH ×2 (09:21→21:12)
[2016-09-04] MEDS: VANCOMYCIN 1 GM/NS 250 ML IVPB IV SCH ×2 (09:21)
[2016-09-04 10:11] LABS: BASOPHILS % (AUTO) 0 % (0-10); EOSINOPHILS % (AUTO) 0 % (0-10); LYMPHOCYTES # (AUTO) 1.4 X 10^3 (1.0-4.0); LYMPHOCYTES % (AUTO) 10 % (12-44); MEAN CORPUSCULAR HEMOGLOBIN 28 PG (25-34); MEAN CORPUSCULAR HGB CONC 30 G/DL (32-36); MEAN CORPUSCULAR VOLUME 92 FL (80-99); MEAN PLATELET VOLUME 9.8 FL (7.4-10.4); MONOCYTES # (AUTO) 1.2 X 10^3 (0.0-1.0); MONOCYTES % (AUTO) 8 % (0-12); NEUTROPHILS # (AUTO) 12.1 X 10^3 (1.8-7.8); NEUTROPHILS % (AUTO) 82 % (42-75); PLATELET COUNT 228 10^3/uL (130-400); RED BLOOD COUNT 3.03 10^6/uL (4.35-5.85); RED CELL DISTRIBUTION WIDTH 20.1 % (10.0-14.5); WHITE BLOOD COUNT 14.7 10^3/uL (4.3-11.0)
[2016-09-04 10:38] LABS: CALCIUM 8.7 MG/DL (8.5-10.1); CREATININE SERUM 0.99 MG/DL (0.60-1.30); POTASSIUM 5.2 MMOL/L (3.6-5.0)
[2016-09-04 15:35] VITALS: BP 159/72
[2016-09-04] MEDS: LOSARTAN 50 MG (COZAAR) TAB PO SCH (17:24)
--- NOTE | 2016-09-04 21:08 | Progress Note (SOAP) ---
Subjective Subjective/Events-last exam Fwup bibasilar pneumonia, respiratory distress with hypoxia, UTI, COPD exacerbation, acute on chronic anemia, lung cancer with mets. Cough improving but patient states she does not want to go back to [facility] because she is afraid she will get worse. Having routine BMs. Objective Exam Vital Signs Date Time Temp Pulse Resp B/P (MAP) Pulse Ox O2 Delivery O2 Flow Rate FiO2 09/04/16 19:32 93 6.00 09/04/16 15:35 97.2 80 20 159/72 92 Nasal Cannula 5.00 09/04/16 14:53 89 5.00 09/04/16 10:52 90 5.00 09/04/16 08:00 97.3 71 20 112/57 93 Nasal Cannula 5.00 09/04/16 08:00 5.00 09/04/16 07:33 93 5.00 09/04/16 00:00 97.1 73 24 131/81 91 Nasal Cannula 5.00 I & O 09/04/16 07:00 Intake Total 2200 ml Output Total 220 ml Balance 1980 ml Capillary Refill : Less Than 3 SecondsLess Than 3 Seconds General Appearance: No Apparent Distress Neck: Supple Respiratory: Rhonci Cardiovascular: Regular Rate, Rhythm, Systolic Murmur Gastrointestinal: normal bowel sounds, non tender, soft Extremity: Non Tender, No Calf Tenderness, No Pedal Edema Neurologic/Psychiatric: Alert Results Lab Laboratory Tests 09/04/16 05:41: Glucometer 162H 09/04/16 10:02: White Blood Count 14.7H, Red Blood Count 3.03L, Hemoglobin 8.5L, Hematocrit 28L , Mean Corpuscular Volume 92, Mean Corpuscular Hemoglobin 28, Mean Corpuscular Hemoglobin Concent 30L, Red Cell Distribution Width 20.1H, Platelet Count 228, Mean Platelet Volume 9.8, Neutrophils (%) (Auto) 82H, Lymphocytes (%) (Auto) 10L , Monocytes (%) (Auto) 8, Eosinophils (%) (Auto) 0, Basophils (%) (Auto) 0, Neutrophils # (Auto) 12.1H, Lymphocytes # (Auto) 1.4, Monocytes # (Auto) 1.2H, Eosinophils # (Auto) 0.0, Basophils # (Auto) 0.0, Sodium Level 136, Potassium Level 5.2H, Chloride Level 99, Carbon Dioxide Level 27, Anion Gap 10, Blood Urea Nitrogen 30H, Creatinine 0.99, Estimat Glomerular Filtration Rate 55, BUN/ Creatinine Ratio 30, Glucose Level 236H, Calcium Level 8.7 09/04/16 11:04: Glucometer 259H 09/04/16 16:12: Glucometer 249H 09/04/16 20:52: Glucometer 211H Microbiology 08/28/16 Blood Culture - Final, Complete No growth 08/28/16 Urine Culture - Final, Complete Escherichia Coli Assessment/Plan Assessment/Plan Assess & Plan/Chief Complaint 1. Bibasilar pneumonia--still on triple therapy and WBC count still coming down , recheck CXR 2. Acute Respiratory Distress with Acute Hypoxia--improved, on NC 3. COPD exacerbation--Continue SVNS and prednisone 4. UTI--urine cx grew out E coli with broad sensitivity so continue current abx 5. Acute on Chronic Anemia--S/P transfusion--monitor H/H 6. Uncontrolled DM--insulin requiring--increase levemir dose back up 7. Uncontrolled HTN--improved, continue current meds 8. Chronic Pain--improved with fentanyl patch 9. Constipation--continue senokot/miralax and relistor 10. Confusion--stable Clinical Quality Measures DVT/VTE Risk/Contraindication: Risk Factor Score Per Nursin RFS Level Per Nursing on Admit: 3=High CHRISTIAN SALES DO September 04, 2016 21:08
[2016-09-04] MEDS: SIMvastatin 20 MG (ZOCOR) TAB PO SCH (21:10)
[2016-09-04] MEDS: MEMANTINE 10 MG (NAMENDA) TABLET PO SCH (21:11)
[2016-09-04] MEDS: POLYETHYLENE GLYCOL 17 GM (MIRALAX) PACK PO SCH (21:11)
[2016-09-04] MEDS: DONEPEZIL 5 MG (ARICEPT) TAB PO SCH (21:12)
[2016-09-04] MEDS ORDERED: inSUlin DETERMIR 1 UNIT/0.01 ML (LEVEMIR) CHARGE PER UNIT SQ ONE (21:14)
[2016-09-04] MEDS ORDERED: FUROSEMIDE 40 MG (LASIX) TAB PO ONE (21:15)
[2016-09-04 23:15] VITALS: BP 146/67
[2016-09-05] MEDS: MEROPENEM 500 MG in NS (IVPB) 100 ML IV SCH ×5 (00:16→23:36)
[2016-09-05] MEDS: HYDROcodone/APAP 10 MG/325 MG (LORTAB) TAB PO PRN ×4 (02:50→21:39)
[2016-09-05] MEDS: predniSONE 20 MG TAB PO SCH (06:02)
[2016-09-05] MEDS: CARVEDILOL 12.5 MG (COREG) TABLET PO SCH ×2 (06:06→16:11)
[2016-09-05] MEDS: inSUlin (REGULAR) HUMAN 1 UNIT/0.01 ML (CHARGE PER UNIT) SC SCH ×4 (06:17→21:45)
[2016-09-05] MEDS ORDERED: TROUGH ORDER-PHARMACY XX NR (07:00)
[2016-09-05] MEDS: RT-ALBUTEROL/IPRATROPIUM 3 ML (DUONEB) VIAL INH SCH ×4 (07:04→18:39)
[2016-09-05] MEDS: UMECLIDINIUM BROMIDE (INCRUSE ELLIPTA) 7'S IH SCH (07:06)
[2016-09-05] MEDS: RT-ADVAIR HFA 115/21 MCG PER PUFF IH SCH (07:06)
[2016-09-05 07:52] LABS: BASOPHILS % (AUTO) 0 % (0-10); EOSINOPHILS % (AUTO) 0 % (0-10); LYMPHOCYTES # (AUTO) 2.9 X 10^3 (1.0-4.0); LYMPHOCYTES % (AUTO) 15 % (12-44); MEAN CORPUSCULAR HEMOGLOBIN 28 PG (25-34); MEAN CORPUSCULAR HGB CONC 31 G/DL (32-36); MEAN CORPUSCULAR VOLUME 92 FL (80-99); MEAN PLATELET VOLUME 10.3 FL (7.4-10.4); MONOCYTES % (AUTO) 10 % (0-12); NEUTROPHILS # (AUTO) 14.2 X 10^3 (1.8-7.8); NEUTROPHILS % (AUTO) 75 % (42-75); PLATELET COUNT 263 10^3/uL (130-400); RED BLOOD COUNT 3.31 10^6/uL (4.35-5.85); RED CELL DISTRIBUTION WIDTH 20.8 % (10.0-14.5); WHITE BLOOD COUNT 19.1 10^3/uL (4.3-11.0)
[2016-09-05 08:00] VITALS: BP 91/54
[2016-09-05 08:14] LABS: CALCIUM 9.3 MG/DL (8.5-10.1); CREATININE SERUM 1.05 MG/DL (0.60-1.30); POTASSIUM 4.6 MMOL/L (3.6-5.0)
[2016-09-05] MEDS ORDERED: fluCOnazole (DIFLUCAN) 100 MG TAB PO NR (08:30)
--- NOTE | 2016-09-05 08:44 | Progress Note (SOAP) ---
Subjective Subjective/Events-last exam Fwup bibasilar pneumonia, respiratory distress with hypoxia, UTI, COPD exacerbation, acute on chronic anemia, lung cancer with mets. Extra lasix helped breathing. Objective Exam Vital Signs Date Time Temp Pulse Resp B/P (MAP) Pulse Ox O2 Delivery O2 Flow Rate FiO2 09/05/16 07:12 93 7.00 09/04/16 23:15 97.3 74 24 146/67 95 Nasal Cannula 7.00 09/04/16 20:15 5.00 09/04/16 19:32 93 6.00 09/04/16 15:35 97.2 80 20 159/72 92 Nasal Cannula 5.00 09/04/16 14:53 89 5.00 09/04/16 10:52 90 5.00 I & O 09/05/16 07:00 Intake Total 2250 ml Output Total 775 ml Balance 1475 ml Capillary Refill : Less Than 3 SecondsLess Than 3 Seconds General Appearance: No Apparent Distress Neck: Supple Respiratory: Lungs Clear Cardiovascular: Regular Rate, Rhythm Gastrointestinal: normal bowel sounds, non tender, soft Neurologic/Psychiatric: Alert, Oriented x3 Results Lab Laboratory Tests 09/04/16 10:02: White Blood Count 14.7H, Red Blood Count 3.03L, Hemoglobin 8.5L, Hematocrit 28L , Mean Corpuscular Volume 92, Mean Corpuscular Hemoglobin 28, Mean Corpuscular Hemoglobin Concent 30L, Red Cell Distribution Width 20.1H, Platelet Count 228, Mean Platelet Volume 9.8, Neutrophils (%) (Auto) 82H, Lymphocytes (%) (Auto) 10L , Monocytes (%) (Auto) 8, Eosinophils (%) (Auto) 0, Basophils (%) (Auto) 0, Neutrophils # (Auto) 12.1H, Lymphocytes # (Auto) 1.4, Monocytes # (Auto) 1.2H, Eosinophils # (Auto) 0.0, Basophils # (Auto) 0.0, Sodium Level 136, Potassium Level 5.2H, Chloride Level 99, Carbon Dioxide Level 27, Anion Gap 10, Blood Urea Nitrogen 30H, Creatinine 0.99, Estimat Glomerular Filtration Rate 55, BUN/ Creatinine Ratio 30, Glucose Level 236H, Calcium Level 8.7 09/04/16 11:04: Glucometer 259H 09/04/16 16:12: Glucometer 249H 09/04/16 20:52: Glucometer 211H 09/05/16 06:04: Glucometer 274H 09/05/16 07:36: White Blood Count 19.1H, Red Blood Count 3.31L, Hemoglobin 9.4L, Hematocrit 31L , Mean Corpuscular Volume 92, Mean Corpuscular Hemoglobin 28, Mean Corpuscular Hemoglobin Concent 31L, Red Cell Distribution Width 20.8H, Platelet Count 263, Mean Platelet Volume 10.3, Neutrophils (%) (Auto) 75, Lymphocytes (%) (Auto) 15 , Monocytes (%) (Auto) 10, Eosinophils (%) (Auto) 0, Basophils (%) (Auto) 0, Neutrophils # (Auto) 14.2H, Lymphocytes # (Auto) 2.9, Monocytes # (Auto) 2.0H, Eosinophils # (Auto) 0.0, Basophils # (Auto) 0.0, Sodium Level 137, Potassium Level 4.6, Chloride Level 95L, Carbon Dioxide Level 29, Anion Gap 13, Blood Urea Nitrogen 28H, Creatinine 1.05, Estimat Glomerular Filtration Rate 52, BUN/ Creatinine Ratio 27, Glucose Level 181H, Calcium Level 9.3, Vancomycin Level Trough 17.7 Microbiology 08/28/16 Blood Culture - Final, Complete No growth 08/28/16 Urine Culture - Final, Complete Escherichia Coli Assessment/Plan Assessment/Plan Assess & Plan/Chief Complaint 1. Bibasilar pneumonia--still on triple therapy and WBC count still coming down 2. Acute Respiratory Distress with Acute Hypoxia--improved, on NC 3. COPD exacerbation--Continue SVNS and decrease prednisone 4. UTI--urine cx grew out E coli with broad sensitivity so continue current abx 5. Acute on Chronic Anemia--S/P transfusion--monitor H/H 6. Uncontrolled DM--insulin requiring--increase levemir dose back up 7. Uncontrolled HTN--improved, continue current meds 8. Chronic Pain--improved with fentanyl patch 9. Constipation--continue senokot/miralax and relistor 10. Confusion--stable Clinical Quality Measures DVT/VTE Risk/Contraindication: Risk Factor Score Per Nursin RFS Level Per Nursing on Admit: 3=High CHRISTIAN SALES DO September 05, 2016 08:44
[2016-09-05] MEDS ORDERED: CLONIDINE PATCH REMOVAL TP SCH (08:59)
[2016-09-05] MEDS ORDERED: predniSONE 20 MG TAB PO SCH (09:06)
[2016-09-05] MEDS: LEVOFLOXACIN 500 MG/100 ML IV 100 ML IV SCH (09:51)
[2016-09-05] MEDS: VANCOMYCIN 1 GM/NS 250 ML IVPB IV SCH ×2 (09:52)
[2016-09-05] MEDS: SENNA W/DOCUSATE (SENOKOT S) TABLET PO SCH ×2 (09:53→21:39)
[2016-09-05] MEDS: PANTOPRAZOLE 40 MG (PROTONIX) TAB PO SCH ×2 (09:53→21:39)
[2016-09-05] MEDS: ASPIRIN 81 MG CHEW (CHILDREN'S ASA) PO SCH (09:53)
[2016-09-05] MEDS: ISOSORBIDE MONONITRATE 60 MG (IMDUR) TAB PO SCH (09:53)
[2016-09-05] MEDS: FUROSEMIDE 40 MG (LASIX) TAB PO SCH ×2 (09:53→16:11)
[2016-09-05] MEDS: MAGNESIUM OXIDE (MAG-OX)400 MG TAB PO SCH (09:53)
[2016-09-05] MEDS: LACTOBACILLUS Acidoph/Bulgar (LACTINEX/FLORANEX) TAB PO SCH (09:54)
[2016-09-05] MEDS: ARIPIPRAZOLE 10 MG (ABILIFY) TAB PO SCH ×2 (10:00→21:38)
[2016-09-05] MEDS: DULoxetine 30 MG (CYMBALTA) CAP PO SCH ×2 (10:00→21:38)
[2016-09-05] MEDS: FLUTICASONE NASAL SPRAY (FLONASE) 16 GM BTL NS SCH ×2 (10:01→21:00)
[2016-09-05] MEDS: NYSTATIN CREAM (MYCOSTATIN) 30 GM TUBE TP SCH ×2 (10:01→21:00)
[2016-09-05] MEDS: cloNIDine 0.2 MG PATCH (CATAPRES TTS) TDSY TD SCH (10:24)
[2016-09-05 16:00] VITALS: BP 101/58
[2016-09-05] MEDS: LOSARTAN 50 MG (COZAAR) TAB PO SCH (16:11)
--- NOTE | 2016-09-05 16:55 | Progress Note (SOAP) ---
Subjective Subjective/Events-last exam Since status she wanted to talk to one of the hospice providers today. She decided to speak again with her daughter prior to enrolling. Objective Exam Vital Signs Date Time Temp Pulse Resp B/P (MAP) Pulse Ox O2 Delivery O2 Flow Rate FiO2 09/05/16 16:00 96.3 73 16 101/58 97 Nasal Cannula 4.50 09/05/16 14:46 92 5.00 09/05/16 10:53 93 6.00 09/05/16 08:00 96.7 71 16 91/54 99 Nasal Cannula 7.00 09/05/16 08:00 5.00 09/05/16 07:12 93 7.00 09/04/16 23:15 97.3 74 24 146/67 95 Nasal Cannula 7.00 09/04/16 20:15 5.00 09/04/16 19:32 93 6.00 I & O 09/05/16 07:00 Intake Total 2250 ml Output Total 775 ml Balance 1475 ml Capillary Refill : Less Than 3 SecondsLess Than 3 Seconds General Appearance: Anxious, Chronically ill, Obese HEENT: PERRL/EOMI Neck: Full Range of Motion, Non Tender, Supple Respiratory: Decreased Breath Sounds Cardiovascular: Regular Rate, Rhythm, No JVD Gastrointestinal: normal bowel sounds, non tender, soft Neurologic/Psychiatric: Alert, Oriented x3 Results Lab Laboratory Tests 09/04/16 20:52: Glucometer 211H 09/05/16 06:04: Glucometer 274H 09/05/16 07:36: White Blood Count 19.1H, Red Blood Count 3.31L, Hemoglobin 9.4L, Hematocrit 31L , Mean Corpuscular Volume 92, Mean Corpuscular Hemoglobin 28, Mean Corpuscular Hemoglobin Concent 31L, Red Cell Distribution Width 20.8H, Platelet Count 263, Mean Platelet Volume 10.3, Neutrophils (%) (Auto) 75, Lymphocytes (%) (Auto) 15 , Monocytes (%) (Auto) 10, Eosinophils (%) (Auto) 0, Basophils (%) (Auto) 0, Neutrophils # (Auto) 14.2H, Lymphocytes # (Auto) 2.9, Monocytes # (Auto) 2.0H, Eosinophils # (Auto) 0.0, Basophils # (Auto) 0.0, Sodium Level 137, Potassium Level 4.6, Chloride Level 95L, Carbon Dioxide Level 29, Anion Gap 13, Blood Urea Nitrogen 28H, Creatinine 1.05, Estimat Glomerular Filtration Rate 52, BUN/ Creatinine Ratio 27, Glucose Level 181H, Calcium Level 9.3, Vancomycin Level Trough 17.7 09/05/16 11:12: Glucometer 151H 09/05/16 15:37: Glucometer 206H Microbiology 08/28/16 Blood Culture - Final, Complete No growth 08/28/16 Urine Culture - Final, Complete Escherichia Coli Assessment/Plan Assessment/Plan Assess & Plan/Chief Complaint 1. Escherichia coli UTI --completing antibiotics 2. Altered mental status--resolved; 3. Bilateral Pneumonia-- much improved on IV vancomycin, meropenem, and MAT protocol 4. Anemia-multifactorial in origin arising from metastatic lung cancer, recent chemotherapy, and anemia of chronic disease. Hemoglobin is stable at 9.4. 5. Reactive thrombocytosis--resolved; 6. Abnormal abdominal/pelvic CT scan --free air around bladder noted urology is following; 7. Uncontrolled hypertension related to known pheochromocytoma-improved with antihypertensive medications. 8. Uncontrolled Diabetes--Dr. Brower is managing 9. Metastatic adenocarcinoma of the lung with metastases to bone-and enlarged lytic lesion at L5 status post recent kyphoplasty with nondiagnostic bone marrow biopsy a. Patient is considering hospice enrollment but wants to speak first to her daughter, Latasha. 10. History of biopsy-proven left adrenal pheochromocytoma; Clinical Quality Measures DVT/VTE Risk/Contraindication: Risk Factor Score Per Nursin RFS Level Per Nursing on Admit: 3=High AMRIK GASPAR MD September 05, 2016 16:55
[2016-09-05] MEDS ORDERED: inSUlin DETERMIR 1 UNIT/0.01 ML (LEVEMIR) CHARGE PER UNIT SQ SCH (21:00)
[2016-09-05] MEDS: inSUlin DETERMIR 1 UNIT/0.01 ML (LEVEMIR) CHARGE PER UNIT SQ SCH (21:38)
[2016-09-05] MEDS: MEMANTINE 10 MG (NAMENDA) TABLET PO SCH (21:39)
[2016-09-05] MEDS: DONEPEZIL 5 MG (ARICEPT) TAB PO SCH (21:39)
[2016-09-05] MEDS: POLYETHYLENE GLYCOL 17 GM (MIRALAX) PACK PO SCH (21:46)
[2016-09-06] VITALS: BP 105/49
[2016-09-06] MEDS: MEROPENEM 500 MG in NS (IVPB) 100 ML IV SCH ×4 (05:21→23:09)
[2016-09-06] MEDS: inSUlin (REGULAR) HUMAN 1 UNIT/0.01 ML (CHARGE PER UNIT) SC SCH ×4 (06:06→21:09)
[2016-09-06 06:18] LABS: BASOPHILS # (AUTO) 0.1 10^3/uL (0.0-0.1); BASOPHILS % (AUTO) 0 % (0-10); EOSINOPHILS % (AUTO) 0 % (0-10); LYMPHOCYTES # (AUTO) 3.3 X 10^3 (1.0-4.0); LYMPHOCYTES % (AUTO) 21 % (12-44); MEAN CORPUSCULAR HEMOGLOBIN 29 PG (25-34); MEAN CORPUSCULAR HGB CONC 31 G/DL (32-36); MEAN CORPUSCULAR VOLUME 94 FL (80-99); MEAN PLATELET VOLUME 10.8 FL (7.4-10.4); MONOCYTES # (AUTO) 1.7 X 10^3 (0.0-1.0); MONOCYTES % (AUTO) 11 % (0-12); NEUTROPHILS # (AUTO) 10.6 X 10^3 (1.8-7.8); NEUTROPHILS % (AUTO) 68 % (42-75); PLATELET COUNT 210 10^3/uL (130-400); RED BLOOD COUNT 3.08 10^6/uL (4.35-5.85); RED CELL DISTRIBUTION WIDTH 20.8 % (10.0-14.5); WHITE BLOOD COUNT 15.7 10^3/uL (4.3-11.0)
[2016-09-06] MEDS: FUROSEMIDE 40 MG (LASIX) TAB PO SCH ×2 (06:24→16:36)
[2016-09-06] MEDS: HYDROcodone/APAP 10 MG/325 MG (LORTAB) TAB PO PRN ×3 (06:24→20:03)
[2016-09-06] MEDS: predniSONE 20 MG TAB PO SCH (06:24)
[2016-09-06] MEDS: CARVEDILOL 12.5 MG (COREG) TABLET PO SCH ×2 (06:29→16:36)
[2016-09-06 06:33] LABS: CREATININE SERUM 1.05 MG/DL (0.60-1.30); POTASSIUM 4.4 MMOL/L (3.6-5.0)
[2016-09-06] MEDS: RT-ADVAIR HFA 115/21 MCG PER PUFF IH SCH ×2 (07:12→19:02)
[2016-09-06] MEDS: RT-ALBUTEROL/IPRATROPIUM 3 ML (DUONEB) VIAL INH SCH ×4 (07:12→19:00)
[2016-09-06] MEDS: UMECLIDINIUM BROMIDE (INCRUSE ELLIPTA) 7'S IH SCH (07:13)
[2016-09-06 07:54] VITALS: BP 101/54
[2016-09-06] MEDS: VANCOMYCIN 1 GM/NS 250 ML IVPB IV SCH ×2 (09:43)
[2016-09-06] MEDS: SENNA W/DOCUSATE (SENOKOT S) TABLET PO SCH ×2 (09:45→21:10)
[2016-09-06] MEDS: FLUTICASONE NASAL SPRAY (FLONASE) 16 GM BTL NS SCH ×2 (09:45→21:08)
[2016-09-06] MEDS: DULoxetine 30 MG (CYMBALTA) CAP PO SCH ×2 (09:46→21:10)
[2016-09-06] MEDS: PANTOPRAZOLE 40 MG (PROTONIX) TAB PO SCH ×2 (09:46→21:10)
[2016-09-06] MEDS: MAGNESIUM OXIDE (MAG-OX)400 MG TAB PO SCH (09:46)
[2016-09-06] MEDS: ASPIRIN 81 MG CHEW (CHILDREN'S ASA) PO SCH (09:46)
[2016-09-06] MEDS: ARIPIPRAZOLE 10 MG (ABILIFY) TAB PO SCH ×2 (09:46→21:10)
[2016-09-06] MEDS: fluCOnazole (DIFLUCAN) 100 MG TAB PO SCH (09:46)
[2016-09-06] MEDS: LACTOBACILLUS Acidoph/Bulgar (LACTINEX/FLORANEX) TAB PO SCH (09:46)
[2016-09-06] MEDS: NYSTATIN CREAM (MYCOSTATIN) 30 GM TUBE TP SCH ×2 (09:46→21:08)
[2016-09-06] MEDS: LEVOFLOXACIN 500 MG/100 ML IV 100 ML IV SCH (09:47)
[2016-09-06] MEDS: ISOSORBIDE MONONITRATE 60 MG (IMDUR) TAB PO SCH (09:48)
[2016-09-06] MEDS ORDERED: FENTANYL PATCH REMOVAL TP SCH (13:30)
[2016-09-06] MEDS ORDERED: fentaNYL PATCH 25 MCG (DURAGESIC) TD SCH (13:30)
--- NOTE | 2016-09-06 13:32 | Progress Note (SOAP) ---
Subjective Subjective/Events-last exam Patient is feeling better today and has spoken with her daughter and now states she wants to enroll with Hospice. I also had a long discussion with her daughter Latasha this morning and answered her questions regarding her mother's co-morbidities and her disease progression. Latasha voiced concerns about managing her mother's pain when she goes back to the [facility]. She was assured that she could address these concerns with the nursing staff at the [facility] and that any Hospice service would attentively manage her pain. Objective Exam Vital Signs Date Time Temp Pulse Resp B/P (MAP) Pulse Ox O2 Delivery O2 Flow Rate FiO2 09/06/16 10:55 94 6.00 09/06/16 07:54 96.0 62 18 101/54 93 Nasal Cannula 5.00 09/06/16 07:16 94 6.00 09/06/16 00:00 96.3 71 20 105/49 91 Nasal Cannula 5.00 09/05/16 20:50 5.00 09/05/16 18:40 94 5.00 09/05/16 16:00 96.3 73 16 101/58 97 Nasal Cannula 4.50 09/05/16 14:46 92 5.00 I & O 09/06/16 07:00 Intake Total 3100 ml Output Total 500 ml Balance 2600 ml Capillary Refill : Less Than 3 SecondsLess Than 3 Seconds General Appearance: No Apparent Distress, Obese HEENT: PERRL/EOMI Neck: Non Tender Respiratory: Decreased Breath Sounds Cardiovascular: Regular Rate, Rhythm Gastrointestinal: normal bowel sounds, non tender, soft Neurologic/Psychiatric: Alert, Oriented x3 Results Lab Laboratory Tests 09/05/16 15:37: Glucometer 206H 09/05/16 20:32: Glucometer 215H 09/06/16 05:17: Glucometer 107 09/06/16 05:57: White Blood Count 15.7H, Red Blood Count 3.08L, Hemoglobin 8.8L, Hematocrit 29L , Mean Corpuscular Volume 94, Mean Corpuscular Hemoglobin 29, Mean Corpuscular Hemoglobin Concent 31L, Red Cell Distribution Width 20.8H, Platelet Count 210, Mean Platelet Volume 10.8H, Neutrophils (%) (Auto) 68, Lymphocytes (%) (Auto) 21 , Monocytes (%) (Auto) 11, Eosinophils (%) (Auto) 0, Basophils (%) (Auto) 0, Neutrophils # (Auto) 10.6H, Lymphocytes # (Auto) 3.3, Monocytes # (Auto) 1.7H, Eosinophils # (Auto) 0.0, Basophils # (Auto) 0.1, Sodium Level 137, Potassium Level 4.4, Chloride Level 94L, Carbon Dioxide Level 32, Anion Gap 11, Blood Urea Nitrogen 35H, Creatinine 1.05, Estimat Glomerular Filtration Rate 52, BUN/ Creatinine Ratio 33, Glucose Level 91, Calcium Level 9.0 09/06/16 11:15: Glucometer 173H Microbiology 08/28/16 Blood Culture - Final, Complete No growth 08/28/16 Urine Culture - Final, Complete Escherichia Coli Assessment/Plan Assessment/Plan Assess & Plan/Chief Complaint 1. Escherichia coli UTI --completing antibiotics 2. Altered mental status--resolved; 3. Bilateral Pneumonia-- much improved on IV vancomycin, meropenem, and MAT protocol 4. Anemia-multifactorial in origin arising from metastatic lung cancer, recent chemotherapy, and anemia of chronic disease. Hemoglobin is stable at 9.4. 5. Reactive thrombocytosis--resolved; 6. Abnormal abdominal/pelvic CT scan --free air around bladder noted urology is following; 7. Uncontrolled hypertension related to known pheochromocytoma-improved with antihypertensive medications. 8. Uncontrolled Diabetes--Dr. Brower is managing 9. Metastatic adenocarcinoma of the lung with metastases to bone-and enlarged lytic lesion at L5 status post recent kyphoplasty with nondiagnostic bone marrow biopsy a. Patient is stating today that she wants to enroll with hospice which can be done at [facility]. 10. History of biopsy-proven left adrenal pheochromocytoma; Clinical Quality Measures DVT/VTE Risk/Contraindication: Risk Factor Score Per Nursin RFS Level Per Nursing on Admit: 3=High AMRIK GASPAR MD September 06, 2016 13:31
[2016-09-06 16:00] VITALS: BP 101/61
[2016-09-06] MEDS: LOSARTAN 50 MG (COZAAR) TAB PO SCH (16:36)
[2016-09-06] MEDS: inSUlin DETERMIR 1 UNIT/0.01 ML (LEVEMIR) CHARGE PER UNIT SQ SCH (21:09)
[2016-09-06] MEDS: MEMANTINE 10 MG (NAMENDA) TABLET PO SCH (21:10)
[2016-09-06] MEDS: POLYETHYLENE GLYCOL 17 GM (MIRALAX) PACK PO SCH (21:10)
[2016-09-06] MEDS: DONEPEZIL 5 MG (ARICEPT) TAB PO SCH (21:10)
--- NOTE | 2016-09-06 21:34 | Progress Note (SOAP) ---
Subjective Subjective/Events-last exam Fwup bibasilar pneumonia, respiratory distress with hypoxia, UTI, COPD exacerbation, acute on chronic anemia, lung cancer with mets. Patient has decided on hospice. Objective Exam Vital Signs Date Time Temp Pulse Resp B/P (MAP) Pulse Ox O2 Delivery O2 Flow Rate FiO2 09/06/16 20:00 5.00 09/06/16 19:08 5.00 09/06/16 19:02 5.00 09/06/16 16:00 97.0 60 20 101/61 94 Nasal Cannula 5.00 09/06/16 15:00 95 6.00 09/06/16 14:01 94 09/06/16 10:55 94 6.00 09/06/16 08:00 5.00 09/06/16 07:54 96.0 62 18 101/54 93 Nasal Cannula 5.00 09/06/16 07:16 94 6.00 09/06/16 00:00 96.3 71 20 105/49 91 Nasal Cannula 5.00 I & O 09/06/16 07:00 Intake Total 3100 ml Output Total 500 ml Balance 2600 ml Capillary Refill : Less Than 3 SecondsLess Than 3 Seconds General Appearance: Mild Distress (tearful) Neck: Supple Respiratory: Decreased Breath Sounds, Rhonci Cardiovascular: Regular Rate, Rhythm, Systolic Murmur Gastrointestinal: normal bowel sounds, non tender, soft Extremity: Non Tender, No Calf Tenderness, No Pedal Edema Neurologic/Psychiatric: Alert Results Lab Laboratory Tests 09/06/16 05:17: Glucometer 107 09/06/16 05:57: White Blood Count 15.7H, Red Blood Count 3.08L, Hemoglobin 8.8L, Hematocrit 29L , Mean Corpuscular Volume 94, Mean Corpuscular Hemoglobin 29, Mean Corpuscular Hemoglobin Concent 31L, Red Cell Distribution Width 20.8H, Platelet Count 210, Mean Platelet Volume 10.8H, Neutrophils (%) (Auto) 68, Lymphocytes (%) (Auto) 21 , Monocytes (%) (Auto) 11, Eosinophils (%) (Auto) 0, Basophils (%) (Auto) 0, Neutrophils # (Auto) 10.6H, Lymphocytes # (Auto) 3.3, Monocytes # (Auto) 1.7H, Eosinophils # (Auto) 0.0, Basophils # (Auto) 0.1, Sodium Level 137, Potassium Level 4.4, Chloride Level 94L, Carbon Dioxide Level 32, Anion Gap 11, Blood Urea Nitrogen 35H, Creatinine 1.05, Estimat Glomerular Filtration Rate 52, BUN/ Creatinine Ratio 33, Glucose Level 91, Calcium Level 9.0 09/06/16 11:15: Glucometer 173H 09/06/16 16:23: Glucometer 392H 09/06/16 20:50: Glucometer 187H Microbiology 08/28/16 Blood Culture - Final, Complete No growth 08/28/16 Urine Culture - Final, Complete Escherichia Coli Assessment/Plan Assessment/Plan Assess & Plan/Chief Complaint 1. Bibasilar pneumonia--still on triple therapy and WBC count still coming down 2. Acute Respiratory Distress with Acute Hypoxia--improved, on NC 3. COPD exacerbation--Continue SVNS and prednisone 4. UTI--urine cx grew out E coli with broad sensitivity so continue current abx 5. Acute on Chronic Anemia--S/P transfusion--monitor H/H 6. Uncontrolled DM--insulin requiring--continue levemir with SSI 7. Uncontrolled HTN--improved, continue current meds 8. Chronic Pain--improved with fentanyl patch 9. Constipation--continue senokot/miralax and relistor 10. Confusion--stable 11. Lung Cancer with mets--patient has decided on hospice so will plan home tomorrow with hospice Clinical Quality Measures DVT/VTE Risk/Contraindication: Risk Factor Score Per Nursin RFS Level Per Nursing on Admit: 3=High CHRISTIAN SALES DO September 06, 2016 9:34 pm
[2016-09-07 00:16] VITALS: BP 105/66
[2016-09-07] MEDS: HYDROcodone/APAP 10 MG/325 MG (LORTAB) TAB PO PRN ×2 (02:42→08:34)
[2016-09-07 05:57] LABS: BASOPHILS # (AUTO) 0.1 10^3/uL (0.0-0.1); BASOPHILS % (AUTO) 0 % (0-10); EOSINOPHILS % (AUTO) 0 % (0-10); LYMPHOCYTES # (AUTO) 3.3 X 10^3 (1.0-4.0); LYMPHOCYTES % (AUTO) 19 % (12-44); MEAN CORPUSCULAR HEMOGLOBIN 29 PG (25-34); MEAN CORPUSCULAR HGB CONC 31 G/DL (32-36); MEAN CORPUSCULAR VOLUME 94 FL (80-99); MEAN PLATELET VOLUME 10.9 FL (7.4-10.4); MONOCYTES # (AUTO) 1.7 X 10^3 (0.0-1.0); MONOCYTES % (AUTO) 10 % (0-12); NEUTROPHILS # (AUTO) 12.6 X 10^3 (1.8-7.8); NEUTROPHILS % (AUTO) 71 % (42-75); PLATELET COUNT 219 10^3/uL (130-400); RED BLOOD COUNT 2.82 10^6/uL (4.35-5.85); RED CELL DISTRIBUTION WIDTH 21.4 % (10.0-14.5); WHITE BLOOD COUNT 17.7 10^3/uL (4.3-11.0)
[2016-09-07] MEDS: MEROPENEM 500 MG in NS (IVPB) 100 ML IV SCH ×2 (05:57→11:57)
[2016-09-07] MEDS: FUROSEMIDE 40 MG (LASIX) TAB PO SCH (06:02)
[2016-09-07] MEDS: CARVEDILOL 12.5 MG (COREG) TABLET PO SCH (06:02)
[2016-09-07] MEDS: predniSONE 20 MG TAB PO SCH (06:02)
[2016-09-07 06:29] LABS: CREATININE SERUM 1.11 MG/DL (0.60-1.30); POTASSIUM 4.6 MMOL/L (3.6-5.0)
[2016-09-07 06:30] LABS: CALCIUM 8.8 MG/DL (8.5-10.1)
[2016-09-07] MEDS: inSUlin (REGULAR) HUMAN 1 UNIT/0.01 ML (CHARGE PER UNIT) SC SCH ×2 (06:47→12:00)
[2016-09-07] MEDS: RT-ALBUTEROL/IPRATROPIUM 3 ML (DUONEB) VIAL INH SCH ×2 (07:26→11:27)
[2016-09-07] MEDS: RT-ADVAIR HFA 115/21 MCG PER PUFF IH SCH (07:27)
[2016-09-07] MEDS: UMECLIDINIUM BROMIDE (INCRUSE ELLIPTA) 7'S IH SCH (07:27)
[2016-09-07 08:00] VITALS: BP 89/63
[2016-09-07] MEDS: DULoxetine 30 MG (CYMBALTA) CAP PO SCH (08:33)
[2016-09-07] MEDS: LACTOBACILLUS Acidoph/Bulgar (LACTINEX/FLORANEX) TAB PO SCH (08:34)
[2016-09-07] MEDS: ASPIRIN 81 MG CHEW (CHILDREN'S ASA) PO SCH (08:34)
[2016-09-07] MEDS: MAGNESIUM OXIDE (MAG-OX)400 MG TAB PO SCH (08:34)
[2016-09-07] MEDS: ARIPIPRAZOLE 10 MG (ABILIFY) TAB PO SCH (08:34)
[2016-09-07] MEDS: PANTOPRAZOLE 40 MG (PROTONIX) TAB PO SCH (08:34)
[2016-09-07] MEDS: SENNA W/DOCUSATE (SENOKOT S) TABLET PO SCH (08:34)
[2016-09-07] MEDS: fluCOnazole (DIFLUCAN) 100 MG TAB PO SCH (08:34)
[2016-09-07] MEDS: ISOSORBIDE MONONITRATE 60 MG (IMDUR) TAB PO SCH (08:34)
[2016-09-07] MEDS: FLUTICASONE NASAL SPRAY (FLONASE) 16 GM BTL NS SCH (08:35)
[2016-09-07] MEDS: NYSTATIN CREAM (MYCOSTATIN) 30 GM TUBE TP SCH (08:35)
[2016-09-07] MEDS ORDERED: LEVO500T2 PO (09:00)
[2016-09-07] MEDS ORDERED: FENT1PAT9 TD (09:00)
[2016-09-07] MEDS ORDERED: FLUC100T6 PO (09:00)
== END 2016-09-07 13:38 | disposition hospice, home (50) | DRG 190 ==
LOC: EDUNIT# 12:29 → ER 12:30 → ICU 13:46 → 4TH 08-30 14:20
PROVIDERS: ADMIT Family Medicine; ATTEND Family Medicine
DX: J44.0 Chronic obstructive pulmonary disease with (acute) lower respiratory infection (principal); J18.9 Pneumonia, unspecified organism; J44.1 Chronic obstructive pulmonary disease with (acute) exacerbation; N30.90 Cystitis, unspecified without hematuria; B96.20 Unspecified Escherichia coli [E. coli] as the cause of diseases classified elsewhere; C34.92 Malignant neoplasm of unspecified part of left bronchus or lung; C79.51 Secondary malignant neoplasm of bone; D63.0 Anemia in neoplastic disease; Z66 Do not resuscitate; D64.81 Anemia due to antineoplastic chemotherapy; E11.65 Type 2 diabetes mellitus with hyperglycemia; Z79.4 Long term (current) use of insulin; D35.02 Benign neoplasm of left adrenal gland; I25.10 Atherosclerotic heart disease of native coronary artery without angina pectoris; I10 Essential (primary) hypertension; F41.9 Anxiety disorder, unspecified; F32.9 Major depressive disorder, single episode, unspecified; K59.00 Constipation, unspecified; R41.0 Disorientation, unspecified; K21.9 Gastro-esophageal reflux disease without esophagitis; Z87.891 Personal history of nicotine dependence
CPT/HCPCS: 36415; 51702; 70450; 71010; 71020; 72125; 72194; 74177; 80048; 80053; 80202; 81000; 82805; 82962; 83605; 83735; 83880; 84484; 85007; 85025; 85027; 86850; 86900; 86901; 86920; 87040; 87088; 87186; 94640; 94660; 94664; 94760; 96374; 96375